=== PATIENT | male | born 1995 ===

== ENCOUNTER 2020-06-16 17:02 | Emergency (ER) | payer MEDICAID, SELFPAY ==
[2020-06-16 17:07] VITALS: BP 117/66; PULSE 78; RESP 18; TEMP 37.1; O2SAT 100; BMI 23.1
--- NOTE | 2020-06-16 18:58 | PC.NURSE ---
PATIENT [facility] DUE TO NEEDING TO GO TO WORK. THIS HIDE [employer] WORKER COUNSELLED PATIENT TO FOLLOW UP WITH PCP AND RETURN IF ANY ISSUES ARISE.
--- NOTE | 2020-06-16 20:22 | PC.NURSE ---
Called at 1999 for room placement, again at 2014, no answer
== END 2020-06-16 20:20 | disposition left against medical advice (07) ==
PROVIDERS: Emergency Provider Emergency Medicine
DX: Z04.1 Encounter for examination and observation following transport accident (principal)
CPT/HCPCS: 99281; 99282

== ENCOUNTER 2020-06-16 23:56 | Emergency (ER) | payer OTHER, MEDICAID, SELFPAY ==
[2020-06-17 00:14] VITALS: BP 105/60; PULSE 76; RESP 14; TEMP 36.6; O2SAT 98
[2020-06-17 00:23] VITALS: PULSE 76; RESP 14; TEMP 36.6; O2SAT 98; BMI 23.5
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
== END 2020-06-17 01:07 | disposition home or self-care (01) ==
LOC: HO.ED 06-17 00:56
PROVIDERS: Emergency Provider Emergency Medicine
DX: S39.012A Strain of muscle, fascia and tendon of lower back, initial encounter (principal); M54.2 Cervicalgia; M25.511 Pain in right shoulder; V43.52XA Car driver injured in collision with other type car in traffic accident, initial encounter; Y93.9 Activity, unspecified; Y92.410 Unspecified street and highway as the place of occurrence of the external cause; F17.200 Nicotine dependence, unspecified, uncomplicated; Z71.6 Tobacco abuse counseling
CPT/HCPCS: 99283; 99284

== ENCOUNTER 2020-06-17 16:48 | Outpatient (REF) | payer OTHER, MEDICAID, SELFPAY ==
--- NOTE | 2020-06-17 16:45 | MR_ITS ---
EXAMINATION: MR SHOULDER WITHOUT CONTRAST, RIGHT CLINICAL INFORMATION: Shoulder pain. COMPARISON: None. TECHNIQUE: MRI of the shoulder without contrast was performed on a high-field scanner. FINDINGS: ROTATOR CUFF: Mild subscapularis tendinosis. No focal tear. Supraspinatus, infraspinatus, teres minor are intact. No muscle atrophy or fatty infiltration. BICEPS: Intact. CORACOACROMIAL ARCH: The undersurface of the acromion is curved with no subacromial spur. [id number]-lj-[id number] AC joint arthritis. LABRUM/CAPSULE: No focal labral tear is seen. Inferior capsule is intact. GLENOHUMERAL JOINT/MARROW: Subcortical cysts in the greater tuberosity. There is a subchondral cyst/edema in the posterolateral humeral head, with minimal cortical irregularity. This could be related to sequela of impingement, prior impaction injury. No significant joint effusion. IMPRESSION: 1. Mild subscapularis tendinosis. No evidence of rotator cuff tear. 2. Rhpf-xn-zbowrreq AC joint arthritis. 3. Subcortical findings in the posterolateral humeral head, could be related to sequela of impingement, prior impaction injury.
== END 2020-06-17 16:49 | disposition home or self-care (01) ==
LOC: HO.MRI 16:48
PROVIDERS: Visit Provider Emergency Medicine
DX: M25.511 Pain in right shoulder (principal)
CPT/HCPCS: 73221

== ENCOUNTER → 2020-10-11 08:02 | Outpatient (BNVA) | payer MEDICAID, SELFPAY | PROVIDERS: Visit Provider Orthopaedic Surgery | DX: M25.311 Other instability, right shoulder (principal); M25.312 Other instability, left shoulder | CPT/HCPCS: 99202 ==

== ENCOUNTER 2021-11-06 23:56 | Emergency (ER) | payer MEDICAID, SELFPAY ==
--- NOTE | ~2021-11-06 | XR_ITS ---
EXAMINATION: XR WRIST, RIGHT CLINICAL INFORMATION: Fall COMPARISON: None TECHNIQUE: PA, lateral, and oblique views of the right wrist. FINDINGS: The bones and soft tissues are unremarkable. No fracture. Alignment is anatomic with normal joint spaces. No erosions or abnormal soft tissue calcifications. A bone island is present in the scaphoid. A small cyst is present in the ulnar styloid. XR/XR wrist RT 2V IMPRESSION: No evidence of an acute osseous injury.
[2021-11-07] VITALS: BP 118/68; PULSE 68; RESP 18; TEMP 36.6; O2SAT 99; BMI 24.3
--- NOTE | 2021-11-07 01:21 | ED_ITS ---
HPI - Fall General Chief Complaint: Fall Stated Complaint: Fall Time Seen by Provider: 11/07/21 01:29 Source: patient Mode of arrival: ambulatory Limitations: no limitations History of Present Illness HPI Narrative: 26-year-old male presents with injury sustained from a fall after slipping on some ice. complaint: fall Onset (ago): hour(s) (Within the hour of arrival) Fall from: standing Fall witnessed: no Place fall occurred: other (Outside) Loss of consciousness: none Prolonged down time: no Symptoms prior to fall: none Context: tripped/slipped (Slipped on ice) Location of injury: neck and back Location of injury - extremities: right: hand Severity: mild Severity scale (1-10): 4 Quality: aching Associated symptoms (after fall): denies Related Data Home Medications Medication Instructions Recorded Confirmed terbinafine HCl 1 % topical spray 1 spray TOPICAL BEDTIME 09/15/20 (Lamisil (Aerosol)) Previous Rx's Medication Instructions Recorded cyclobenzaprine 10 mg tablet 10 mg PO TID PRN #14 tab 11/07/21 Allergies Allergy/AdvReac Type Severity Reaction Status Date / Time No Known Allergies Allergy Verified 11/07/21 00:00 Review of Systems Review of Systems: Constitutional: No Fever, No Chills ENT/Mouth: No Ear Pain, No Hoarseness, No sore throat Eyes: No Eye Pain, No Swelling, No Redness, No Foreign Body Cardiovascular: No Chest Pain, No SOB Respiratory: No Cough, No Dyspnea Gastrointestinal: No Nausea, No Vomiting, No Diarrhea, No abdominal Pain Genitourinary: No Dysuria, No Hematuria Musculoskeletal: positive right wrist, back and neck pain, No Myalgias, No Joint Swelling Skin: No Skin lacerations, No rash Neuro: No Weakness, No Numbness, No Paresthesias, No Loss of Consciousness, No Dizziness, No Headache Psych: No Anxiety/Panic, No Depression Heme/Lymph: no easy bruising, no Lymphadenopathy Endocrine: No Polyuria, No Polydipsia Yes all other systems are reviewed and are negative [facility] Past Medical History Attestation statement: The following information was validated with the patient. 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 Oriented X3. No acute distress. Eyes: Pupils equal, round and reactive to light. ENT: Pharynx normal. Neck: Normal inspection. Neck supple. No vertebral tenderness or step-offs noted to cervical spine. No axial loading tenderness. Full range of motion against resistance. CVS: Normal heart rate and rhythm. Pulses normal. Respiratory: No respiratory distress. Breath sounds normal. Abdomen: Soft and nontender. Skin: Skin warm and dry. Normal skin color. Normal skin turgor. Extremities: Moves all extremities against resistance. Strength 5/5 to all extremities. No snuffbox tenderness. Able to pronate supinate extend and flex wrist without difficulty. Neuro: No motor deficit. No sensory deficit. Cranial nerves 2-12 intact. Course Course Course Narrative: 26-year-old male presents with injury sustained from a slip and fall on the ice while walking out of [place]. Patient has full range of motion, gait is well balanced well coordinated. X-rays to the right wrist are negative for acute findings requiring emergent intervention. Injuries are most likely muscular skeletal, acute whiplash injury. Plan of care is to discharge home and have patient follow-up with primary care physician if symptoms persist. Will give prescription for cyclobenzaprine. Thank you for choosing this emergency department for evaluation. Please follow-up with primary care physician as needed. Return to the emergency department for any new, concerning, or worsening symptoms. MDM - Fall Differential Diagnosis Differential diagnosis: Likely dislocation and fracture Medical Records Attestation: I reviewed the patient's medical records. Imaging Data Wrist x-ray: Attestation: I personally reviewed and interpreted this imaging study as follows: Radiologist's impression: EXAMINATION: XR WRIST, RIGHT CLINICAL INFORMATION: Fall? COMPARISON: None? TECHNIQUE: PA, lateral, and oblique views of the right wrist. FINDINGS: The bones and soft tissues are unremarkable. No fracture. Alignment is anatomic with normal joint spaces. No erosions or abnormal soft tissue calcifications. A bone island is present in the scaphoid. A small cyst is present in the ulnar styloid. XR/XR wrist RT 2V IMPRESSION: No evidence of an acute osseous injury. Discharge Plan Discharge Clinical Impression: Musculoskeletal strain, Muscle strain of right wrist, Fall due to ice or snow Patient Disposition: Home, Self-Care Instructions: Cervical Strain (DC), Wrist Injury (ED), Musculoskeletal Pain (ED) Additional Instructions: You were evaluated for injury sustained from a slip and fall on the ice. X-rays negative for acute findings requiring emergent intervention. Your injuries are consistent with a whiplash or an acute muscle strain. Please use cyclobenzaprine as needed for muscle spasms. Cyclobenzaprine as a muscle relaxer, this medication can delay reaction time, increased risk for falls, and cause drowsiness. Do not drive or operate machinery while taking this medication. You may consider following up with primary care physician as you may need physical therapy if symptoms persist. Thank you for choosing this emergency department for evaluation. Please follow-up with primary care physician as needed. Return to the emergency department for any new, concerning, or worsening symptoms. Prescriptions: New cyclobenzaprine 10 mg tablet 10 mg PO TID PRN (Reason: muscle spasm) Qty: 14 0RF
[2021-11-07] MEDS: Cyclobenzaprine HCl 10 MG TABLET PO (01:58)
[2021-11-07 02:00] VITALS: BP 91/49; PULSE 75; RESP 16; O2SAT 98
--- NOTE | 2021-11-07 02:02 | PC.NURSE ---
pt a&o, no sob or chest pain. pt neuro intact, able to complete full sentence and is appropriate. Pt able to ambulate with a steady gait. Medicated per Nov. Reviewed discharge instructions. pt verbalized understanding.
== END 2021-11-07 02:04 | disposition home or self-care (01) ==
PROVIDERS: Emergency Provider Emergency Medicine; PCP Nurse Practitioner Primary Care
DX: S16.1XXA Strain of muscle, fascia and tendon at neck level, initial encounter (principal); S66.911A Strain of unspecified muscle, fascia and tendon at wrist and hand level, right hand, initial encounter; W00.0XXA Fall on same level due to ice and snow, initial encounter; Y93.01 Activity, walking, marching and hiking; Y92.481 Parking lot as the place of occurrence of the external cause; Y99.8 Other external cause status
CPT/HCPCS: 73100; 90471; 99283; 99284

== ENCOUNTER 2021-11-21 21:09 | Emergency (ER) | payer MEDICAID, SELFPAY ==
[2021-11-21 21:15] VITALS: BP 129/88; PULSE 88; RESP 16; TEMP 36.9; O2SAT 98; BMI 24.7
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
== END 2021-11-21 22:56 | disposition home or self-care (01) ==
PROVIDERS: Emergency Provider Emergency Medicine; PCP Nurse Practitioner Primary Care
DX: S01.111A Laceration without foreign body of right eyelid and periocular area, initial encounter (principal); W50.1XXA Accidental kick by another person, initial encounter; Y93.9 Activity, unspecified; Y92.9 Unspecified place or not applicable; Y99.9 Unspecified external cause status
CPT/HCPCS: 12013; 99283; 99284

== ENCOUNTER 2021-12-06 18:01 | Emergency (ER) | payer MEDICAID, SELFPAY ==
[2021-12-06 18:59] VITALS: BP 106/71; PULSE 63; RESP 19; TEMP 36.6; O2SAT 98; BMI 24.6
== END 2021-12-06 20:07 | disposition left against medical advice (07) ==
PROVIDERS: Emergency Provider Emergency Medicine; PCP Nurse Practitioner Primary Care
DX: Z48.02 Encounter for removal of sutures (principal)
CPT/HCPCS: 99281; 99282

== ENCOUNTER 2021-12-06 20:36 | Emergency (ER) | payer MEDICAID, SELFPAY ==
[2021-12-06 20:46] VITALS: BP 106/71; PULSE 63; RESP 12; TEMP 36.9; O2SAT 99; BMI 24.6
--- NOTE | 2021-12-06 20:46 | ED.GENADULT ---
HPI - General Adult General Chief complaint: General Medical Stated complaint: Suture removal Time Seen by Provider: 12/06/21 20:46 Source: patient Mode of arrival: ambulatory Limitations: no limitations History of Present Illness HPI narrative: Patient is a 26 year old male presenting to the emergency department today for suture removal. Patient states that he was injured in a sparring match a couple weeks ago and he had to get stitches placed in his right eyebrow. Patient denies any dizziness, lightheadedness, abdominal pain, nausea, vomiting, fever, chills, blurry vision, double vision, loss of vision, chest pain, difficulty breathing, shortness of breath, back pain, night sweats, pain with urination, increased urinary frequency, increased urinary urgency, blood in his urine or stool, syncope or a near syncopal episode, recent trauma or falls, bowel incontinence, bladder incontinence, bowel retention, bladder retention, or any other complaints at this time. Patient states that there has not been any drainage, discharge, warmth, or redness to the sutured area. Location: face Treatments prior to arrival: none Related Data Home Medications Medication Instructions Recorded Confirmed terbinafine HCl 1 % topical spray 1 spray TOPICAL BEDTIME 09/15/20 (Lamisil (Aerosol)) Previous Rx's Medication Instructions Recorded cyclobenzaprine 10 mg tablet 10 mg PO TID PRN #14 tab 11/07/21 cephalexin 500 mg capsule 500 mg PO Q6H 7 Days #28 cap 11/21/21 Allergies Allergy/AdvReac Type Severity Reaction Status Date / Time No Known Allergies Allergy Verified 11/07/21 00:00 Review of Systems Constitutional: Constitutional: Reports no additional constitutional complaints, Denies chills, Denies fever(s) and Denies night sweats Eyes: Eyes: Reports no additional eye complaints, Denies blurry vision, Denies change in vision, Denies diplopia, Denies eye discharge, Denies loss of vision and Denies eye pain ENT: Denies dizziness Cardiovascular: Cardiovascular: Reports no additional cardiovascular complaints, Denies chest pain, Denies lightheadedness, Denies Loss of Consciousness and Denies dyspnea Respiratory: Respiratory: Reports no additional respiratory complaints and Denies dyspnea Gastrointestinal: Gastrointestinal: Reports no additional gastrointestinal complaints, Denies abdominal pain, Denies melena, Denies hematochezia, Denies change in bowel habits and Denies change in stool character Genitourinary: Genitourinary: Reports no additional male genitourinary complaints, Denies hematuria, Denies oliguria, Denies difficulty urinating, Denies dysuria, Denies urinary frequency, Denies urinary hesitancy, Denies urinary incontinence and Denies urinary urgency Musculoskeletal: Musculoskeletal: Reports no additional musculoskeletal complaints, Denies numbness and Denies tingling Integumentary/Breasts: Comments: 3cm laceration to the right eye brow that is well approximated and healed with 5 4-[address] Neurologic: Denies dizziness, Denies loss of vision, Denies numbness and Denies tingling Psychiatric: Psychiatric: Reports no additional psychiatric complaints Endocrine: Endocrine: Reports no additional endocrine complaints Hematologic/Lymphatic: Hematologic/Lymphatic: Reports no additional hematologic/lymphatic complaints Allergic/Immunologic: Allergic/Immunologic: Reports no additional allergic/immunologic complaints PMFSH Past Medical History Attestation statement: The following information was validated with the patient. Source: old records reviewed Medical History Patient denies significant medical history Family History Family History Other Patient denies medical problems Social History Social History Alcohol intake: current Alcohol intake frequency: holidays/special occasions only Patient Tobacco Use Status: Never used Tobacco Advance Directives: No Advance Directives Information Provided: No Current occupational status: employed Current occupation: [employer]- Right Handed Physical Exam ED Vital Signs: Vital Signs - 24 hr 12/06/21 20:46 Temperature 98.4 F Pulse Rate 63 Respiratory Rate 12 Blood Pressure 106/71 Pulse Oximetry 99 BMI result Body Mass Index 24.6 Const General: cooperative, no acute distress, alert and awake Nutritional Appearance: well nourished Orientation/consciousness: patient oriented x3 Limitations: no limitations HENMT Head: Yes normal to inspection and Yes atraumatic Ears: hearing grossly normal bilaterally and external ears normal General nose exam: Normal external nose present, no nasal discharge noted and no epistaxis Face and sinus: Yes normal facial exam, No abrasion and No laceration Mouth: Normal oral and palatal mucosa present, no drooling and no muffled voice Eyes General: appearance normal, both eyes and all related structures Periorbital: periorbital findings normal Eyelids: Yes eyelids normal Conjunctivae: conjunctivae normal Pupils: Equal, round and reactive pupils present EOM: EOMs intact bilaterally Neck Neck: Yes normal visual inspection, Yes full ROM and Yes no lymphadenopathy Chest Chest palpation & inspection: normal inspection of the chest Resp Effort & Inspection: normal respiratory effort and able to speak in complete sentences Auscultation: clear to auscultation bilaterally Cardio Rate: regular rate Rhythm: regular rhythm GI Inspection: Yes normal to inspection Skin Other: 3cm laceration to the right eyebrow that is well approximated and healing appropriately with 5 4-0 prolene sutures Neuro General: patient oriented x3 and moves all extremities Cranial nerves: Yes Equal, round and reactive pupils present Cognition (Neuro): normal cognition Motor exam (neuro): 5/5 motor strength present throughout Sensory Exam: Normal double simultaneous stimulation for sensation Coordination: [id number] test normal Extrem General: Yes normal to inspection, Yes full ROM and Yes capillary refill normal Psych Appearance: grossly normal Mental Status: mental status grossly normal Affect: normal affect Attitude: cooperative Thought process: Normal thought process present Thought content: Normal thought content present Insight: Good insight present (Psych) Procedures Procedure Narrative Procedure Narrative: 5 4-0 prolene sutures removed from the right eyebrow, without incident. Medical Decision Making MDM Narrative Medical decision making narrative: Patient is a 26 year old male presenting to the emergency department today for a suture removal. Patient's physical exam showed a 3cm laceration to the right eyebrow that was well approximated and healed with 5 4-[address] I explained my physical exam findings to the patient. I answered all questions asked by the patient. Patient's sutures were removed, without incident. I stressed the importance of the patient taking his medication as prescribed. I stressed the importance of the patient following up with his primary care provider. I stressed the importance of the patient returning to the emergency department immediately if his symptoms were to worsen or if he were to develop any dizziness, shortness of breath, difficulty breathing, chest pain, blurry vision, loss of vision, nausea, vomiting, abdominal pain, fever, chills, back pain, or any other complaints. Patient verbalized agreement and understanding with this treatment plan and discharge. Differential Diagnosis Differential Diagnosis: suture removal Medical Records Medical records reviewed: Yes I reviewed the patient's medical records. Discharge Plan Discharge Clinical Impression: Visit for suture removal Patient Disposition: Home, Self-Care Instructions: Stitches Removal (ED) Additional Instructions: Follow up with your primary care provider. Return to the emergency department immediately if your symptoms worsen or if you develop any dizziness, shortness of breath, difficulty breathing, chest pain, blurry vision, loss of vision, nausea, vomiting, abdominal pain, fever, chills, back pain, or any other complaints. Prescriptions: No Action cyclobenzaprine 10 mg tablet 10 mg PO TID PRN (Reason: muscle spasm) Qty: 14 0RF cephalexin 500 mg capsule 500 mg PO Q6H 7 Days Qty: 28 0RF Referrals: Physician,Unknown J [Primary Care Provider] - 2 days (Follow up with your PCP. ) Interventions: ED Discharge Assessment Last Done: 12/06/21 21:25 Discharge Date/Time: 12/06/21 21:26 Print Language: Armenian
== END 2021-12-06 21:26 | disposition home or self-care (01) ==
PROVIDERS: Emergency Provider Internal Medicine
DX: Z48.02 Encounter for removal of sutures (principal); S01.111D Laceration without foreign body of right eyelid and periocular area, subsequent encounter; W45.8XXD Other foreign body or object entering through skin, subsequent encounter
CPT/HCPCS: 99281; 99283

== ENCOUNTER 2023-02-25 21:17 | Emergency (ER) | payer MEDICAID, SELFPAY ==
--- NOTE | ~2023-02-25 | CT_ITS ---
EXAMINATION: CT mastoid CLINICAL INFORMATION: Reason for Exam r/o mastoiditis R side COMPARISON: None. TECHNIQUE: Noncontrast CT targeted to the right temporal bone was performed. Multiplanar reformations were generated and reviewed This CT examination was performed using dose optimization techniques as appropriate, variously including the following: * Automated exposure control * Adjustment of mA and/or kV according to patient size (this includes techniques or standardized protocols for targeted exams where dose is matched to indication/reason for exam; i.e. extremities or head) Use of iterative reconstruction technique DLP: 324.89 mGy-cm FINDINGS: There is diffuse soft tissue thickening of the right external auditory canal which may reflect otitis externa. There is thickening of the right tympanic membrane which appears intact. Partial opacification of the superior mastoid air cells. There is mild to moderate opacification of the middle ear cavity including involvement of the sinus tympani and facial nerve recess and predominantly surrounding the ossicles. The ossicles are intact without erosive changes. The scutum and tegmen tympani are intact. Normal morphology of the inner ear structures. Normal mineralization of the otic capsule. The superior aqueduct is normal in size. Normal appearance of the facial nerve canal. The internal auditory canal is normal in size. The periauricular and visualized cervical soft tissues are unremarkable. The visualized intracranial compartment appears normal. There is mucosal thickening involving the visualized sphenoid, ethmoid, and right maxillary sinus. CT/CT mastoid IMPRESSION: 1. Mild to moderate opacification of the right middle ear cavity, thickening of the tympanic membrane, and partial opacification of the superior mastoid air cells without evidence of osseous erosion. Findings may reflect otomastoiditis 2. Diffuse soft tissue thickening of the right external auditory canal which may reflect otitis externa
[2023-02-25 21:39] VITALS: BP 128/64; PULSE 64; RESP 16; TEMP 37; O2SAT 98; BMI 25.8
--- NOTE | 2023-02-26 00:11 | PC.NURSE ---
pt is in the room with his hands to his ears, 10/10 pain, pt states he puts drops in his ears and he is ok for a day but after he uses a qtip he has pain. chronic as a child.
[2023-02-26 00:21] VITALS: BP 131/78; PULSE 66; RESP 18; O2SAT 100
--- NOTE | 2023-02-26 00:40 | ED.EAR ---
HPI - Ear Problem General Chief complaint: Ear Problems Stated complaint: Infection in both ears?pain in right Time Seen by Provider: 02/26/23 00:05 Source: patient Mode of arrival: ambulatory Limitations: no limitations History of Present Illness HPI Narrative: Patient comes emergency room complaining of right-sided ear pain. Patient states that about 2 days ago, his ear started itching, he has been scratching it with Q-tips. Now, patient has severe pain with discharge. Patient states his whole ear hurts and the back of his ear and side of the neck on the right side helps as well. Denies fever chills. Related Data Home Medications Medication Instructions Recorded Confirmed terbinafine HCl 1 % topical spray 1 spray topical BEDTIME 09/15/20 (Lamisil (Aerosol)) Previous Rx's Medication Instructions Recorded cyclobenzaprine 10 mg tablet 10 mg PO TID PRN muscle spasm #14 11/07/21 tabs cephalexin 500 mg capsule 500 mg PO Q6H 7 days #28 caps 11/21/21 amoxicillin 500 mg-potassium 1 tab PO BID #20 tabs 02/26/23 clavulanate 125 mg tablet (Augmentin) ketorolac 10 mg tablet 10 mg PO TID PRN pain #10 tabs 02/26/23 [id number] 3.3 1 appl otic (ear) right Q4H #10 mL 02/26/23 mg-3 mg-10 mg-0.5 mg/mL ear drops,susp (Cortisporin-TC) Allergies Allergy/AdvReac Type Severity Reaction Status Date / Time No Known Allergies Allergy Verified 11/07/21 00:00 Review of Systems Review of Systems: Constitutional : No Weight loss, No Fever, No Chills, No Night Sweats, No Fatigue, No Malaise ENT/Mouth : No Hearing loss, complaining of right-sided ear pain, itching, discharge. No Nasal Congestion, No Sinus Pain, No Hoarseness, No sore throat, No Rhinorrhea, No Swallowing Difficulty Eyes: No Eye Pain, No Swelling, No Redness, No Foreign Body, No Discharge, No Vision Changes Cardiovascular : No Chest Pain, No SOB, No Dyspnea on Exertion, No Orthopnea, No Edema, No Palpitations Respiratory : No Cough, No Sputum, No Wheezing, No Smoke Exposure, No Dyspnea Gastrointestinal : No Nausea, No Vomiting, No Diarrhea, No Constipation, No abdominal Pain, No Hematochezia, No Melena Genitourinary : no irregular bleeding, No Dysuria, No Urinary Frequency, No Hematuria, No Urinary Incontinence, No Urgency, No Flank Pain, No Urinary Flow Changes, No Hesitancy Musculoskeletal : No joint pain, No Myalgias, No Joint Swelling Skin : No Skin Lesions, No rash Neuro : No Weakness, No Numbness, No Paresthesias, No Loss of Consciousness, No Dizziness, No Headache Psych : No Anxiety/Panic, No Depression, No SI/HI/AH/VH, No Social Issues, Heme/Lymph: No Bruising, No Bleeding,No Lymphadenopathy Endocrine : No Polyuria, No Polydipsia, No Temperature Intolerance [facility] Past Medical History Medical History Patient denies significant medical history Family History Family History Other Patient denies medical problems Social History Social History Alcohol intake: current Alcohol intake frequency: holidays/special occasions only Patient Tobacco Use Status: Never used Tobacco Advance Directives: No Advance Directives Information Provided: Yes Current occupational status: employed Current occupation: [employer]- Right Handed Physical Exam Vital Signs: Vital Signs: Last Vital Signs Temp 98.6 F 02/25/23 21:39 Pulse 66 02/26/23 00:21 Resp 18 02/26/23 00:21 BP 131/78 02/26/23 00:21 Pulse Ox 100 02/26/23 00:21 O2 Del Method Room Air 02/25/23 21:39 BMI result Body Mass Index 25.8 Const: Other: Appearance: Alert. Oriented X3. No acute distress. Eyes: Pupils equal, round and reactive to light. ENT: Pharynx normal. Left ear within normal limits, right ear has significant swelling, unable to see the tympanic membrane due to the amount of discharge and swelling of the ear canal. Patient has pain around the right ear, approximately 1 in in every direction, nonspecific to the mastoid bone. Neck: Normal inspection. Neck supple. No lymph nodes noted. No crepitus CVS: Normal heart rate and rhythm. Pulses normal. Normal S1 and S2 Respiratory: No respiratory distress. Breath sounds normal. No Wheezing. No rales Abdomen: Soft and nontender. No rigidity. No distention. Skin: Skin warm and dry. Normal skin color. Normal skin turgor. Extremities: No lower extremity edema. No Lacerations. No Rash Neuro: Oriented X 3. No motor deficit. No sensory deficit. Moving all extremities. No slurred speech. CN 2 through 12 grossly intact Psych: calm, cooperative, normal affect Course Course Course Narrative: -CT scan of the mastoid bone has been ordered. Results pending -patient was given 1 dose of IM Toradol and Augmentin. Medications Administered Discontinued Medications Generic Name Dose Route Start Last Admin Trade Name Freq PRN Reason Stop Dose Admin Amoxicillin/Clavulanate Potassium 875 mg 02/26/23 00:39 02/26/23 01:11 Amoxicillin/Potassium Clav 875 Mg Tablet PO 02/26/23 00:40 875 mg ONCE ONE Administration Ketorolac Tromethamine 60 mg 02/26/23 00:39 02/26/23 01:12 Ketorolac Tromethamine 60 Mg/2 Ml Vial IM 02/26/23 00:40 60 mg ONCE ONE Administration Medical Decision Making Medical Decision Making MDM Narrative: -from physical exam, patient likely has both otitis media and externa. Patient denies having been swimming lately. -CT scan is not indicative of mastoiditis Radiology Impression Discussion of test interpretation with radiology: I have reviewed the radiologist's reading. Radiologist Impression: FINDINGS: There is diffuse soft tissue thickening of the right external auditory canal which may reflect otitis externa. There is thickening of the right tympanic membrane which appears intact. Partial opacification of the superior mastoid air cells. There is mild to moderate opacification of the middle ear cavity including involvement of the sinus tympani and facial nerve recess and predominantly surrounding the ossicles. The ossicles are intact without erosive changes. The scutum and tegmen tympani are intact. Normal morphology of the inner ear structures. Normal mineralization of the otic capsule. The superior aqueduct is normal in size. Normal appearance of the facial nerve canal. The internal auditory canal is normal in size. The periauricular and visualized cervical soft tissues are unremarkable. The visualized intracranial compartment appears normal. There is mucosal thickening involving the visualized sphenoid, ethmoid, and right maxillary sinus. ? CT/CT mastoid IMPRESSION: ? 1.? Mild to moderate opacification of the right middle ear cavity, thickening of the tympanic membrane, and partial opacification of the superior mastoid air cells without evidence of osseous erosion. Findings may reflect otomastoiditis ? 2.? Diffuse soft tissue thickening of the right external auditory canal which may reflect otitis externa Discharge Plan Discharge Clinical Impression: Otitis externa, Otitis media Patient Disposition: Home, Self-Care Instructions: Ear Infection (ED) Additional Instructions: Please follow-up with your primary care physician tomorrow. If you have any worsening or new symptoms, please return to the emergency room or call 911 Prescriptions: New amoxicillin-pot clavulanate [Augmentin] 500-125 mg tablet 1 tab PO BID Qty: 20 0RF Cortisporin-TC 3.3-3-10-0.5 mg/mL drops,suspension 1 appl otic (ear) right Q4H Qty: 10 0RF Rx Instructions: apply to (cotton) wick; replace wick every 24 hours ketorolac 10 mg tablet 10 mg PO TID PRN (Reason: pain) Qty: 10 0RF Rx Instructions: Do not take this medication with Alive, ibuprofen, naproxen, only Tylenol if needed No Action cyclobenzaprine 10 mg tablet 10 mg PO TID PRN (Reason: muscle spasm) Qty: 14 0RF cephalexin 500 mg capsule 500 mg PO Q6H 7 Days Qty: 28 0RF
[2023-02-26] MEDS: Amoxicillin/Potassium Clav 875 MG TABLET PO (01:11)
[2023-02-26] MEDS: Ketorolac Tromethamine 60 MG/2 ML VIAL IM (01:12)
--- NOTE | 2023-02-26 01:13 | PC.NURSE ---
pt medicated for ear pain. pt has no s/s of hearing loss.
--- NOTE | 2023-02-26 02:20 | PC.NURSE ---
reviewed discharge instructions with pt, pt verbalized understanding, no sign of distress at this charge.
== END 2023-02-26 02:21 | disposition home or self-care (01) ==
PROVIDERS: Emergency Provider Emergency Medicine; PCP Nurse Practitioner Primary Care
DX: H60.93 Unspecified otitis externa, bilateral (principal); H66.93 Otitis media, unspecified, bilateral; Z79.899 Other long term (current) drug therapy
CPT/HCPCS: 70481; 96372; 99284; J1885

== ENCOUNTER 2023-05-24 12:17 | Outpatient (REF) | payer MEDICAID, SELFPAY ==
[2023-05-25 04:00] LABS: HIV AB/AG Nonreactive (Nonreactive); HIV Num 1 0.06 S/CO (0.00-0.99)
[2023-05-25 04:02] LABS: ~HepC Num1 0.19 S/CO (0.00-0.79); ~Hepatitis C Antibody Nonreactive (Nonreactive)
[2023-05-25 05:34] LABS: CT PCR NOT DETECTED (Not Detect.); NG PCR NOT DETECTED (Not Detect.)
[2023-05-27 10:43] LABS: RPR Rapid Plasma Reagin NON-REACTIVE (NON-REACTIVE)
== END 2023-05-24 12:18 | disposition home or self-care (01) ==
LOC: HO.HHCL 12:17
PROVIDERS: Visit Provider Family Medicine
DX: Z11.4 Encounter for screening for human immunodeficiency virus [HIV] (principal); Z11.3 Encounter for screening for infections with a predominantly sexual mode of transmission; Z20.2 Contact with and (suspected) exposure to infections with a predominantly sexual mode of transmission
CPT/HCPCS: 0353U; 36415; 86592; 86803; 87389

== ENCOUNTER 2023-08-26 | Emergency (ER) | payer MEDICAID, SELFPAY ==
--- NOTE | ~2023-08-26 | US_ITS ---
EXAMINATION: US SCROTUM CLINICAL INFORMATION: Right testicular pain. Rule out torsion.. COMPARISON: None available. TECHNIQUE: A sonogram of the scrotum was performed assessing alonzo-scale appearance and color Doppler flow. Spectral Doppler analysis of the arterial and venous flow were performed in the testes bilaterally. FINDINGS: RIGHT: Right testicle measures 4.8 x 2.2 x 3.3 cm, volume 18 mL. No focal testicular parenchymal lesions are visualized. There are a few scattered microcalcifications, up to 5 within the [id number]. Spectral Doppler analysis of the arterial and venous flow is normal in the right testis. Right epididymal head is normal in size. No right hydrocele or varicocele is seen. Right epididymal Doppler flow is increased. LEFT: Left testicle measures 4.5 x 2.5 x 3.2 cm, volume 18 mL. No focal testicular parenchymal lesions are visualized. Spectral Doppler analysis of the arterial and venous flow is normal in the left testis. Left epididymal head is normal in size. No left hydrocele or varicocele is seen. There is a 3 mm cyst in the epididymal head. Left epididymal Doppler flow is normal. US/US scrotum IMPRESSION: * Findings compatible with right epididymitis. * No evidence of testicular torsion. * Limited right testicular microlithiasis. No intratesticular mass or other worrisome findings. In the absence of any other risk factors for testicular cancer (e.g., personal history of testicular cancer, a father or brother with testicular cancer, history of cryptorchidism or maldescent, testicular atrophy, or other risk factors), no further imaging or biochemical follow-up is necessary. However, if the patient has risk factors for testicular cancer, referral to a urologist for evaluation and determination of an optimal follow-up strategy is recommended. Reference: anastasiia Moon. al. AJR: 206February 2016.
--- NOTE | ~2023-08-26 | US_ITS ---
EXAMINATION: US SCROTUM CLINICAL INFORMATION: Right testicular pain. Rule out torsion.. COMPARISON: None available. TECHNIQUE: A sonogram of the scrotum was performed assessing alonzo-scale appearance and color Doppler flow. Spectral Doppler analysis of the arterial and venous flow were performed in the testes bilaterally. FINDINGS: RIGHT: Right testicle measures 4.8 x 2.2 x 3.3 cm, volume 18 mL. No focal testicular parenchymal lesions are visualized. There are a few scattered microcalcifications, up to 5 within the [id number]. Spectral Doppler analysis of the arterial and venous flow is normal in the right testis. Right epididymal head is normal in size. No right hydrocele or varicocele is seen. Right epididymal Doppler flow is increased. LEFT: Left testicle measures 4.5 x 2.5 x 3.2 cm, volume 18 mL. No focal testicular parenchymal lesions are visualized. Spectral Doppler analysis of the arterial and venous flow is normal in the left testis. Left epididymal head is normal in size. No left hydrocele or varicocele is seen. There is a 3 mm cyst in the epididymal head. Left epididymal Doppler flow is normal. US/US scrotum doppler IMPRESSION: * Findings compatible with right epididymitis. * No evidence of testicular torsion. * Limited right testicular microlithiasis. No intratesticular mass or other worrisome findings. In the absence of any other risk factors for testicular cancer (e.g., personal history of testicular cancer, a father or brother with testicular cancer, history of cryptorchidism or maldescent, testicular atrophy, or other risk factors), no further imaging or biochemical follow-up is necessary. However, if the patient has risk factors for testicular cancer, referral to a urologist for evaluation and determination of an optimal follow-up strategy is recommended. Reference: anastasiia Moon. al. AJR: 206February 2016.
[2023-08-26 00:24] VITALS: BP 101/41; PULSE 72; RESP 20; TEMP 37.1; O2SAT 96; BMI 24.3
[2023-08-26 02:40] LABS: MANUAL DIFF FLAG NO
[2023-08-26 02:41] LABS: Basophils Absolute Auto 0.1 X10*3/uL (0.0-0.2); Basophils Percent Auto 0.6 % (0-2); Eosinophils Absolute Auto 0.4 X10*3/uL (0.0-0.4); Eosinophils Percent Auto 4.7 % (0-4); Hematocrit 40.8 % (42.0-52.0); Hemoglobin 13.8 g/dl (14.0-18.0); Imm Gran Abs Auto 0.02 X10*3/uL (0.00-0.03); Imm Gran Pct Auto 0.2 % (0.0-0.4); Lymphocytes Absolute Auto 1.3 X10*3/uL (1.2-4.9); Lymphocytes Percent Auto 16.5 % (20-40); Mean Corpuscular HGB Conc 33.8 g/dl (31.0-36.0); Mean Corpuscular Hemoglobin 30.5 pg (27.0-33.0); Mean Corpuscular Volume 90.3 fL (80.0-98.0); Mean Platelet Volume 9.9 fL (9.4-12.4); Monocytes Absolute Auto 0.5 X10*3/uL (0.1-1.2); Monocytes Percent Auto 6.3 % (2-11); Neutrophils Absolute Auto 5.8 x10*3/uL (2.0-8.3); Neutrophils Percent Auto 71.7 % (45-73); Platelet Count 237 X10*3/uL (160-400); Red Blood Count 4.52 X10*6/uL (4.60-5.80); Red Cell Distribution Width 12.5 % (11.0-16.0); White Blood Count 8.1 X10*3/uL (4.8-10.8)
[2023-08-26 02:42] LABS: Appearance Urine Clear; Color Urine Yellow; Glucose Urine UA Negative (Negative); Leukocyte Esterase Urine Negative (Negative); Nitrite Urine Negative (Negative); Specific Gravity - Urine >= 1.030 (1.005-1.025); Urine Blood Negative (Negative); Urine Ketones Trace mg/dL (Negative); Urine Protein Negative (Neg-Trace)
[2023-08-26 02:44] VITALS: PULSE 65; RESP 16; TEMP 36.4; O2SAT 97
[2023-08-26 02:54] LABS: Alanine Aminotransferase 19 U/L (0-40); Alkaline Phosphatase 115 U/L (39-117); Anion Gap 15 (12-20); Aspartate Amino Transferase 20 U/L (5-37); Bilirubin Total 0.2 mg/dL (0.0-1.0); Blood Urea Nitrogen 16 mg/dL (9-16); Calcium 9.3 mg/dL (8.4-10.2); Carbon Dioxide 25 mmol/L (22-29); Chloride 105 mmol/L (96-108); Creatinine Clr Calc Pharmacy 111.5; Estimated Glomerular Filt Rate > 60; Glucose Random 123 mg/dL (60-115); Potassium 3.9 mmol/L (3.3-5.1); Sodium 141 mmol/L (135-145); Total Protein 6.9 g/dL (6.5-8.0)
[2023-08-26 03:10] LABS: Bacteria Urine None Seen (None Seen); Hyaline Casts Urine 0-2 /LPF (0-2); RBC Urine 0-2 /HPF (0-2); Squamous Epithelial Cell Urine 0-2 /HPF (0-2); WBC Urine 0-5 /HPF (0-5)
--- NOTE | 2023-08-26 03:28 | ED_ITS ---
HPI - Male Genitourinary General Chief complaint: Urogenital-Male Stated complaint: uro-gen male Time Seen by Provider: 08/26/23 03:28 Source: patient Mode of arrival: ambulatory Limitations: no limitations History of Present Illness HPI Narrative: 28-year-old male who presents emergency department for evaluation of right testicular pain. Patient states that yesterday around 19:00 hours he states he sat down and felt a sharp pain in his right testicle. He states that since that time the pain is been constant. Prior to the onset of the pain he was washing and dog but he does not recall straining or having any injury to his testicle. The patient denied frequency, urgency or dysuria. He denied penile discharge. He is sexually active. States he last had intercourse yesterday with a woman and this was his 1st sexual encounter with her. He states that approximately 1 year prior he noted a bump on his testicle that he states he can still feel any does not think that the bump is changed in size. Related Data Home Medications Medication Instructions Recorded Confirmed terbinafine HCl 1 % topical spray 1 spray topical BEDTIME 09/15/20 (Lamisil (Aerosol)) Previous Rx's Medication Instructions Recorded cyclobenzaprine 10 mg tablet 10 mg PO TID PRN muscle spasm #14 11/07/21 tabs cephalexin 500 mg capsule 500 mg PO Q6H 7 days #28 caps 11/21/21 amoxicillin 500 mg-potassium 1 tab PO BID #20 tabs 02/26/23 clavulanate 125 mg tablet (Augmentin) ketorolac 10 mg tablet 10 mg PO TID PRN pain #10 tabs 02/26/23 [id number] 3.3 1 appl otic (ear) right Q4H #10 mL 02/26/23 mg-3 mg-10 mg-0.5 mg/mL ear drops,susp (Cortisporin-TC) doxycycline hyclate 100 mg tablet 100 mg PO Q12H 10 days #20 tabs 08/26/23 metronidazole 500 mg tablet 2,000 mg (4 x 500 mg) PO ONCE #4 08/26/23 tabs Allergies Allergy/AdvReac Type Severity Reaction Status Date / Time No Known Allergies Allergy Verified 07/12/23 15:00 Review of Systems 2 Review of Systems: Yes all other systems are reviewed and are negative PMFSH Past Medical History Medical History Patient denies significant medical history Family History Family History Other Patient denies medical problems Social History Social History (System 07/12/23 @ 15:00 by Doris Bobo) Alcohol intake: current Alcohol intake frequency: holidays/special occasions only Patient Tobacco Use Status: Never used Tobacco Advance Directives: No Advance Directives Information Provided: No Current occupational status: employed Current occupation: [employer]- Right Handed Physical Exam 2 Vital Signs: Vital Signs: Last Vital Signs Temp 97.6 F 08/26/23 02:44 Pulse 65 08/26/23 02:44 Resp 16 08/26/23 02:44 BP 101/41 L 08/26/23 00:24 Pulse Ox 97 08/26/23 02:44 O2 Del Method Room Air 08/26/23 02:44 BMI result Body Mass Index 24.3 Vital signs were normal Exam exam: Uncircumcised male penis, no urethral discharge noted, both testes are descended, they both appear to be symmetric in size, patient does have tenderness palpation of his right testicle and epididymis with no clear mass that I can feel with palpitations. Scrotum appeared normal. Skin appears normal with no lesions. Medications Administered Discontinued Medications Generic Name Dose Route Start Last Admin Trade Name Freq PRN Reason Stop Dose Admin Ibuprofen 400 mg 08/26/23 03:36 08/26/23 04:14 Ibuprofen 400 Mg Tablet PO 08/26/23 03:37 400 mg ONCE ONE Administration Medical Decision Making Medical Decision Making [facility] Narrative: 28-year-old male who presents emergency department for evaluation of right testicular pain which started yesterday at 17:00 hours (approximately 8 hours prior to evaluation). Patient's exam revealed normal-appearing in size, he does have right testes but he does have testicular tenderness and epididymal tenderness. I did order a scrotal ultrasound and scrotal Doppler. 03:41 My interpretation patient's laboratory evaluation is as follows: CBC was normal. CMP revealed elevated glucose 123. Urinalysis was negative 04:31 Patient's duplex ultrasound of the scrotum revealed no torsion good blood flow to both testes, patient may have epididymitis based on the study. Patient does have testicular calcifications. Non clean catch urine was obtained for GC and chlamydia testing Patient was treated with ceftriaxone with lidocaine 500 mg IM and doxycycline 100 mg orally. Patient was prescribed doxycycline 100 mg q.12 hours times 10 days and metronidazole 2 g orally. Patient will need to follow-up with urology to make sure that he is improved after the above treatment and to further evaluate the other ultrasound findings. Patient was given printed and verbal instructions Differential Diagnosis Differential Diagnoses: The differential diagnosis associated with the presentation includes Differential diagnosis includes was not limited due to testicular torsion, testicular trauma, testicular cancer, epididymitis Admission/Observation Consideration of admission/observation: Escalation of care including admission/observation considered Lab Data MDM Lab Attestation statement: I reviewed the patient's lab results. 08/26/23 02:27 08/26/23 02:27 Labs: Lab Results 08/26/23 08/26/23 Range/Units 02:27 02:33 WBC 8.1 (4.8-10.8) X10*3/uL RBC 4.52 L (4.60-5.80) X10*6/uL Hgb 13.8 L (14.0-18.0) g/dl Hct 40.8 L (42.0-52.0) % MCV 90.3 (80.0-98.0) fL MCH 30.5 (27.0-33.0) pg MCHC 33.8 (31.0-36.0) g/dl RDW 12.5 (11.0-16.0) % Plt Count 237 (160-400) X10*3/uL MPV 9.9 (9.4-12.4) fL Immature Gran % (Auto) 0.2 (0.0-0.4) % Neut % (Auto) 71.7 (45-73) % Lymph % (Auto) 16.5 L (20-40) % [place] % (Auto) 6.3 (2-11) % Eos % (Auto) 4.7 H (0-4) % Baso % (Auto) 0.6 (0-2) % Lymph # (Auto) 1.3 (1.2-4.9) X10*3/uL [place] # (Auto) 0.5 (0.1-1.2) X10*3/uL Eos # (Auto) 0.4 (0.0-0.4) X10*3/uL Baso # (Auto) 0.1 (0.0-0.2) X10*3/uL Abs Immat Gran (auto) 0.02 (0.00-0.03) X10*3/uL Absolute Neuts (auto) 5.8 (2.0-8.3) x10*3/uL Absolute Nucleated RBC 0.000 (0.0-0.012) X10*3/uL Nucleated RBC % (auto) 0.0 (0.0-0.2) /100WBC Sodium 141 (135-145) mmol/L Potassium 3.9 (3.3-5.1) mmol/L Chloride 105 (96-108) mmol/L Carbon Dioxide 25 (22-29) mmol/L Anion Gap 15 (12-20) BUN 16 (9-16) mg/dL Creatinine 0.93 (0.5-1.4) mg/dL Estim Creat Clear Calc 111.5 Estimated GFR > 60 Random Glucose 123 H (60-115) mg/dL Calcium 9.3 (8.4-10.2) mg/dL Total Bilirubin 0.2 (0.0-1.0) mg/dL AST 20 (5-37) U/L ALT 19 (0-40) U/L Alkaline Phosphatase 115 (39-117) U/L Total Protein 6.9 (6.5-8.0) g/dL Albumin 4.0 (3.5-5.0) g/dL Urine Color Yellow Urine Appearance Clear Urine pH 6.0 (5.0-9.0) Ur Specific Force >= 1.030 H (1.005-1.025) Urine Protein Negative (Neg-Trace) mg/dL Urine Glucose (UA) Negative (Negative) mg/dL Urine Ketones Trace (Negative) mg/dL Urine Blood Negative (Negative) Urine Nitrite Negative (Negative) Ur Leukocyte Esterase Negative (Negative) Urine RBC 0-2 (0-2) /HPF Urine WBC 0-5 (0-5) /HPF Ur Squamous Epith Cells 0-2 (0-2) /HPF Urine Bacteria None Seen (None Seen) Hyaline Casts 0-2 (0-2) /LPF Radiology Impression Discussion of test interpretation with radiology: I have reviewed the radiologist's reading. Prescription Management I considered prescription management with: Antibiotic Chronic Conditions Patient?s care impacted by: Other (Asthma) Discharge Plan Discharge Clinical Impression: Acute epididymitis Patient Disposition: Home, Self-Care Instructions: Epididymitis (ED) Additional Instructions: Your blood work was normal. The ultrasound revealed no twisting of your testicles. You do have inflammation of the epididymis (the structure just behind your testicle). This is often caused by an infection. This infection is sometimes a sexually transmitted disease such as gonorrhea, chlamydia or Trichomonas. We sent off a urine to test you for these gonorrhea and chlamydia infections. I want you to check the patient portal and if these tests are positive then you need to contact your sexual partner and let her know that she also needs to be treated. Even if these tests are negative, it is very important that you finish taking the antibiotics I am prescribing for you. Take doxycycline 100 mg, 1 pill every 12 hours for 10 days Take Flagyl (metronidazole) 500 mg pills, 4 pills all at once. Take ibuprofen 200 mg pills, 2 pills every 6 hours as needed for pain or fever. Take Tylenol (acetaminophen) 500 mg pills, 2 pills every 6 hours as needed for pain or fever. The ultrasound also showed calcifications in your testicles. It is important that you follow-up with our on-call urologist in 2 weeks to make sure that your infection is better and to further evaluate the ultrasound results. Please return to the emergency department if your symptoms get worse or if you develop any symptoms that are concerning to you. Prescriptions: New metronidazole 500 mg tablet 2,000 mg PO ONCE Qty: 4 0RF doxycycline hyclate 100 mg tablet 100 mg PO Q12H 10 Days Qty: 20 0RF No Action cyclobenzaprine 10 mg tablet 10 mg PO TID PRN (Reason: muscle spasm) Qty: 14 0RF cephalexin 500 mg capsule 500 mg PO Q6H 7 Days Qty: 28 0RF amoxicillin-pot clavulanate [Augmentin] 500-125 mg tablet 1 tab PO BID Qty: 20 0RF Cortisporin-TC 3.3-3-10-0.5 mg/mL drops,suspension 1 appl otic (ear) right Q4H Qty: 10 0RF Rx Instructions: apply to (cotton) wick; replace wick every 24 hours ketorolac 10 mg tablet 10 mg PO TID PRN (Reason: pain) Qty: 10 0RF Rx Instructions: Do not take this medication with Alive, ibuprofen, naproxen, only Tylenol if needed Referrals: Reece Shanks MD [Physician] - 2 weeks (Epididymitis, testicular calcifications)
[2023-08-26] MEDS: Ibuprofen 400 MG TABLET PO (04:14)
[2023-08-26] MEDS: cefTRIAXone sodium 500 MG, Lidocaine HCl 1 % MPF 1 ML IM (04:40)
[2023-08-26] MEDS: Doxycycline Monohydrate 100 MG CAPSULE PO (04:40)
[2023-08-26 05:00] VITALS: PULSE 65; RESP 16; O2SAT 99
[2023-08-26 06:37] LABS: CT PCR NOT DETECTED (Not Detect.); NG PCR NOT DETECTED (Not Detect.)
== END 2023-08-26 05:00 | disposition home or self-care (01) ==
PROVIDERS: Emergency Provider Emergency Medicine Emergency Medical Services; PCP Nurse Practitioner Primary Care
DX: N45.1 Epididymitis (principal); N50.811 Right testicular pain; R10.2 Pelvic and perineal pain; Z79.899 Other long term (current) drug therapy
CPT/HCPCS: 0353U; 36415; 76870; 80053; 81001; 85025; 93975; 96372; 99284; J0696

== ENCOUNTER 2023-10-02 15:31 | Outpatient (REF) | payer MEDICAID, SELFPAY ==
[2023-10-03 08:18] LABS: HBS Num1 31.22 mIU/mL (0-7.99); HIV AB/AG Nonreactive (Nonreactive); HIV Num 1 0.09 S/CO (0.00-0.99); ~HepC Num1 0.13 S/CO (0.00-0.79); ~Hepatitis B Surface Antibody REACTIVE (Nonreactive); ~Hepatitis C Antibody Nonreactive (Nonreactive)
== END 2023-10-02 15:32 | disposition home or self-care (01) ==
LOC: HO.HHCL 15:31
PROVIDERS: Visit Provider Nurse Practitioner Primary Care
DX: Z02.5 Encounter for examination for participation in sport (principal); Z20.2 Contact with and (suspected) exposure to infections with a predominantly sexual mode of transmission
CPT/HCPCS: 36415; 86706; 86803; 87389

== ENCOUNTER 2024-02-17 11:29 | Outpatient (REF) | payer MEDICAID, SELFPAY ==
--- NOTE | ~2024-02-17 | XR_ITS ---
EXAMINATION: XR SHOULDER, LEFT CLINICAL INFORMATION: Left shoulder pain, positive impingement. COMPARISON: None available. TECHNIQUE: AP external rotation, Grashey, scapular Y, and axillary views of the left shoulder. FINDINGS: The bone mineralization is normal. Acromioclavicular and glenohumeral alignment preserved. No abnormal soft tissue calcification identified adjacent to the humeral head. XR/XR shoulder LT min 2V IMPRESSION: No displaced fracture.
== END 2024-02-17 11:30 | disposition home or self-care (01) ==
LOC: HO.XRAY 11:29
PROVIDERS: PCP Family Medicine; Visit Provider Family Medicine
DX: M25.512 Pain in left shoulder (principal)
CPT/HCPCS: 73030

== ENCOUNTER 2024-03-13 16:27 | Outpatient (REF) | payer MEDICAID, SELFPAY ==
[2024-03-14 03:52] LABS: HIV AB/AG Nonreactive (Nonreactive); HIV Num 1 0.05 S/CO (0.00-0.99); ~HepC Num1 0.19 S/CO (0.00-0.79); ~Hepatitis C Antibody Nonreactive (Nonreactive)
[2024-03-16 07:58] LABS: RPR Rapid Plasma Reagin NON-REACTIVE (NON-REACTIVE)
[2024-03-16 20:48] LABS: C. trachomatis RNA TMA NOT DETECTED (NOT DETECTED); N. gonorrhoeae RNA TMA NOT DETECTED (NOT DETECTED)
== END 2024-03-13 16:28 | disposition home or self-care (01) ==
LOC: HO.HHCL 16:27
PROVIDERS: Visit Provider Nurse Practitioner Primary Care
DX: Z11.3 Encounter for screening for infections with a predominantly sexual mode of transmission (principal)
CPT/HCPCS: 36415; 86592; 86803; 87389; 87491; 87591

== ENCOUNTER 2024-09-02 05:00 | Emergency (ER) | payer MEDICAID, SELFPAY ==
[2024-09-02 05:04] VITALS: BP 110/78; BP 119/63; PULSE 107; PULSE 87; RESP 16; TEMP 37; O2SAT 97; O2SAT 98; BMI 24.3
--- NOTE | 2024-09-02 05:20 | ED_ITS ---
HPI - Psych General Chief Complaint: Psychiatric Symptoms Stated Complaint: ANDRIA TORRES Time Seen by Provider: 09/02/24 05:17 Source: patient Mode of arrival: EMS Limitations: no limitations History of Present Illness ED Provider: HPI Narrative: Patient with no significant past medical history feels that he has a depression but has not seen any psychiatrist or therapist comes here because of argument at home with family details not available was making SI statements with a knife wanted to cut himself. No prior history of similar thoughts in the past does not have any therapist or psychiatrist Related Data Home Medications ?Medication ?Instructions ?Recorded ?Confirmed terbinafine HCl 1 % topical spray 1 spray topical BEDTIME 09/15/20 (Lamisil (Aerosol)) Previous Rx's ?Medication ?Instructions ?Recorded cyclobenzaprine 10 mg tablet 10 mg PO TID PRN muscle spasm #14 11/07/21 tabs cephalexin 500 mg capsule 500 mg PO Q6H 7 days #28 caps 11/21/21 amoxicillin 500 mg-potassium 1 tab PO BID #20 tabs 02/26/23 clavulanate 125 mg tablet (Augmentin) ketorolac 10 mg tablet 10 mg PO TID PRN pain #10 tabs 02/26/23 [id number] 3.3 1 appl otic (ear) right Q4H #10 mL 02/26/23 mg-3 mg-10 mg-0.5 mg/mL ear drops,susp (Cortisporin-TC) doxycycline hyclate 100 mg tablet 100 mg PO Q12H 10 days #20 tabs 08/26/23 metronidazole 500 mg tablet 2,000 mg (4 x 500 mg) PO ONCE #4 08/26/23 tabs Allergies Allergy/AdvReac Type Severity Reaction Status Date / Time No Known Allergies Allergy Verified 09/02/24 05:07 Review of Systems 2 Review of Systems: Yes all other systems are reviewed and are negative PMFSH Past Medical History Medical History Patient denies significant medical history Family History Family History Other Patient denies medical problems Social History Social History Alcohol intake: current Alcohol intake frequency: holidays/special occasions only Patient Tobacco Use Status: Never used Tobacco Smoked in Last 30 Days: Yes Use of substances other than those prescribed or required for medical reasons: No Advance Directives: No Do you have a plan to hurt others: No Plan Current occupational status: employed Current occupation: [employer]- Right Handed Physical Exam 2 Vital Signs: Vital Signs: Last Vital Signs Temp 98.6 F 09/02/24 05:04 Pulse 87 09/02/24 05:04 Resp 16 09/02/24 05:04 BP 119/63 09/02/24 05:04 Pulse Ox 97 09/02/24 05:04 O2 Del Method Room Air 09/02/24 05:04 BMI result Body Mass Index 24.3 Appearance: Alert. Oriented X3. No acute distress. Eyes: No pallor or icterus ENT: Pharynx normal. Oral Mucosa moist Neck: Normal inspection. Neck supple. CVS: Normal heart rate and rhythm. Pulses normal. Respiratory: No respiratory distress. Equal air entry bilateral, no wheezing/rales/rhonchi Abdomen: Soft and nontender. Bowel sounds are present, no mass palpable, no CVA tenderness Skin: Skin warm and dry. Normal skin color. Normal skin turgor. Extremities: No lower extremity edema. No calf tenderness psych; feel deep denies any SI at this time no hallucination or delusion Neuro: Oriented X 3. No motor deficit. No sensory deficit.No cerebellar signs , cranial nerves II-XII intact Medical Decision Making Medical Decision Making MDM Narrative: Patient with depression with SI feeling will get care team involved for evaluation Lab Data MDM Lab Attestation statement: I reviewed the patient's lab results. 09/02/24 05:50 09/02/24 05:50 Labs: Lab Results 09/02/24 Range/Units 05:50 WBC 6.0 (4.8-10.8) X10*3/uL RBC 4.33 L (4.60-5.80) X10*6/uL Hgb 13.4 L (14.0-18.0) g/dl Hct 37.7 L (42.0-52.0) % MCV 87.1 (80.0-98.0) fL MCH 30.9 (27.0-33.0) pg MCHC 35.5 (31.0-36.0) g/dl RDW 12.0 (11.0-16.0) % Plt Count 229 (160-400) X10*3/uL MPV 9.7 (9.4-12.4) fL Immature Gran % (Auto) 0.3 (0.0-0.4) % Neut % (Auto) 75.3 H (45-73) % Lymph % (Auto) 16.0 L (20-40) % [place] % (Auto) 5.7 (2-11) % Eos % (Auto) 2.2 (0-4) % Baso % (Auto) 0.5 (0-2) % Lymph # (Auto) 1.0 L (1.2-4.9) X10*3/uL [place] # (Auto) 0.3 (0.1-1.2) X10*3/uL Eos # (Auto) 0.1 (0.0-0.4) X10*3/uL Baso # (Auto) 0.0 (0.0-0.2) X10*3/uL Abs Immat Gran (auto) 0.02 (0.00-0.03) X10*3/uL Absolute Neuts (auto) 4.5 (2.0-8.3) x10*3/uL Absolute Nucleated RBC 0.000 (0.0-0.012) X10*3/uL Nucleated RBC % (auto) 0.0 (0.0-0.2) /100WBC Sodium 143 (135-145) mmol/L Potassium 3.9 (3.3-5.1) mmol/L Chloride 109 H (96-108) mmol/L Carbon Dioxide 26 (22-29) mmol/L Anion Gap 12 (12-20) BUN 12 (9-16) mg/dL Creatinine 0.90 (0.5-1.4) mg/dL Estim Creat Clear Calc 114.2 Estimated GFR > 60 Random Glucose 101 (60-115) mg/dL Calcium 9.1 (8.4-10.2) mg/dL Total Bilirubin 0.3 (0.0-1.0) mg/dL AST 36 (5-37) U/L ALT 23 (0-40) U/L Alkaline Phosphatase 103 (39-117) U/L Total Protein 7.3 (6.5-8.0) g/dL Albumin 4.4 (3.5-5.0) g/dL Salicylates < 5.0 L (15-30) mg/dL Urine Opiates Screen Not Detected (Not Detect) Ur Buprenorphine Scrn Not Detected (Not Detect) ng/mL Ur Oxycodone Screen Not Detected (Not Detect) ng/mL Urine Methadone Screen Not Detected (Not Detect) ng/mL Urine Fentanyl Screen Not Detected (Not Detect) Acetaminophen < 3 (<30) mcg/mL Ur Barbiturates Screen Not Detected (Not Detect) Ur Phencyclidine Scrn Not Detected (Not Detect) Ur Amphetamines Screen Not Detected (Not Detect) U Benzodiazepines Scrn Not Detected (Not Detect) Urine Cocaine Screen Not Detected (Not Detect) U Marijuana (THC) Screen POSITIVE H (Not Detect) Ethyl Alcohol 77 mg/dL Discharge Plan Discharge Clinical Impression: Depression, Suicidal ideation Patient Disposition: Still a Patient Prescriptions: No Action cyclobenzaprine 10 mg tablet 10 mg PO TID PRN (Reason: muscle spasm) Qty: 14 0RF cephalexin 500 mg capsule 500 mg PO Q6H 7 Days Qty: 28 0RF metronidazole 500 mg tablet 2,000 mg PO ONCE Qty: 4 0RF doxycycline hyclate 100 mg tablet 100 mg PO Q12H 10 Days Qty: 20 0RF amoxicillin-pot clavulanate [Augmentin] 500-125 mg tablet 1 tab PO BID Qty: 20 0RF Cortisporin-TC 3.3-3-10-0.5 mg/mL drops,suspension 1 appl otic (ear) right Q4H Qty: 10 0RF Rx Instructions: apply to (cotton) wick; replace wick every 24 hours ketorolac 10 mg tablet 10 mg PO TID PRN (Reason: pain) Qty: 10 0RF Rx Instructions: Do not take this medication with Alive, ibuprofen, naproxen, only Tylenol if needed Interventions: [place]-Suicide Risk Severity Scale Last Done: 09/02/24 05:33 Print Language: Nepali
[2024-09-02 05:58] LABS: MANUAL DIFF FLAG NO
[2024-09-02 06:00] LABS: Basophils Percent Auto 0.5 % (0-2); Eosinophils Absolute Auto 0.1 X10*3/uL (0.0-0.4); Eosinophils Percent Auto 2.2 % (0-4); Hematocrit 37.7 % (42.0-52.0); Hemoglobin 13.4 g/dl (14.0-18.0); Imm Gran Abs Auto 0.02 X10*3/uL (0.00-0.03); Imm Gran Pct Auto 0.3 % (0.0-0.4); Mean Corpuscular HGB Conc 35.5 g/dl (31.0-36.0); Mean Corpuscular Hemoglobin 30.9 pg (27.0-33.0); Mean Corpuscular Volume 87.1 fL (80.0-98.0); Mean Platelet Volume 9.7 fL (9.4-12.4); Monocytes Absolute Auto 0.3 X10*3/uL (0.1-1.2); Monocytes Percent Auto 5.7 % (2-11); Neutrophils Absolute Auto 4.5 x10*3/uL (2.0-8.3); Neutrophils Percent Auto 75.3 % (45-73); Platelet Count 229 X10*3/uL (160-400); Red Blood Count 4.33 X10*6/uL (4.60-5.80)
[2024-09-02 06:10] LABS: Amphetamine Screen Urine Not Detected (Not Detect); Barbiturates, Urine Not Detected (Not Detect); Benzodiazepines Screen Urine Not Detected (Not Detect); Buprenorphine Scr Not Detected (Not Detect); Cannabinoid Screen Urine POSITIVE (Not Detect); Cocaine Screen Urine Not Detected (Not Detect); Fentanyl, urine Not Detected (Not Detect); Methadone Screen, Urine Not Detected (Not Detect); Opiate Screen Urine Not Detected (Not Detect); Oxycodone Screen Urine Not Detected (Not Detect); Phencyclidine Screen Urine Not Detected (Not Detect)
[2024-09-02 06:14] LABS: Alanine Aminotransferase 23 U/L (0-40); Albumin Level 4.4 g/dL (3.5-5.0); Alkaline Phosphatase 103 U/L (39-117); Anion Gap 12 (12-20); Aspartate Amino Transferase 36 U/L (5-37); Bilirubin Total 0.3 mg/dL (0.0-1.0); Blood Urea Nitrogen 12 mg/dL (9-16); Calcium 9.1 mg/dL (8.4-10.2); Carbon Dioxide 26 mmol/L (22-29); Chloride 109 mmol/L (96-108); Creatinine Clr Calc Pharmacy 114.2; Estimated Glomerular Filt Rate > 60; Ethanol 77 mg/dL; Glucose Random 101 mg/dL (60-115); Potassium 3.9 mmol/L (3.3-5.1); Sodium 143 mmol/L (135-145); Total Protein 7.3 g/dL (6.5-8.0)
[2024-09-02 06:24] LABS: Acetaminophen LAB < 3 mcg/mL (<30); Salicylate < 5.0 mg/dL (15-30)
--- NOTE | 2024-09-02 12:51 | PC.NURSE ---
Alert and oriented, calm and cooperative, seen by lucinda. Ate well for lunch
[2024-09-02 12:59] VITALS: BP 128/66; PULSE 83; RESP 19; TEMP 36.8; O2SAT 98
[2024-09-02 14:49] VITALS: BP 128/66; PULSE 83; RESP 18; TEMP 36.8; O2SAT 98
== END 2024-09-02 14:53 | disposition home or self-care (01) ==
PROVIDERS: Emergency Provider Internal Medicine; PCP Nurse Practitioner Primary Care
DX: F33.1 Major depressive disorder, recurrent, moderate (principal); R45.851 Suicidal ideations; Z51.81 Encounter for therapeutic drug level monitoring; Z79.899 Other long term (current) drug therapy
CPT/HCPCS: 36415; 80053; 80143; 80179; 80307; 85025; 99285; S9485

== ENCOUNTER 2024-09-25 10:47 | Outpatient (REF) | payer MEDICAID, SELFPAY ==
[2024-09-25 12:06] LABS: HBS Num1 27.79 mIU/mL (0-7.99); HIV AB/AG Nonreactive (Nonreactive); HIV Num 1 0.05 S/CO (0.00-0.99); ~HepC Num1 0.17 S/CO (0.00-0.79); ~Hepatitis B Surface Antibody REACTIVE (Nonreactive); ~Hepatitis C Antibody Nonreactive (Nonreactive)
[2024-09-26 13:19] LABS: CT PCR NOT DETECTED (Not Detect.); NG PCR NOT DETECTED (Not Detect.)
[2024-09-28 09:58] LABS: RPR Rapid Plasma Reagin NON-REACTIVE (NON-REACTIVE)
== END 2024-09-25 10:48 | disposition home or self-care (01) ==
LOC: HO.HHCL 10:47
PROVIDERS: Visit Provider Nurse Practitioner Primary Care
DX: Z02.5 Encounter for examination for participation in sport (principal); Z11.3 Encounter for screening for infections with a predominantly sexual mode of transmission; Z20.2 Contact with and (suspected) exposure to infections with a predominantly sexual mode of transmission
CPT/HCPCS: 36415; 86592; 86706; 86803; 87389; 87491; 87591

== ENCOUNTER 2024-10-06 19:59 | Emergency (ER) | payer OTHER, SELFPAY ==
[2024-10-06 20:01] VITALS: BP 148/87; PULSE 74; RESP 17; TEMP 36.7; O2SAT 100; BMI 25.2
--- NOTE | 2024-10-06 20:03 | ED_ITS ---
HPI - Male Genitourinary General Chief complaint: Skin/Abscess/Foreign Body Stated complaint: rash/hard to go to bathroom Time Seen by Provider: 10/06/24 21:29 Source: patient Limitations: no limitations History of Present Illness ED Provider: Ninfa Nathan PA-C HPI Narrative: 29-year-old male presents with rectal pain x1 week. Patient states he has ?small cuts?, on both sides of his rectal opening. Patient states he is able to visualize them in the mirror if he uses his phone. When patient has a bowel movement, there is blood on the toilet paper. Patient states having bowel movements is extremely painful. Denies concurrent hemorrhoids. Patient also states he has an itchy rash within bilateral groin that comes and goes; he has been using a prescribed antifungal cream that has resolved the symptoms. Denies dysuria, hematuria, penile discharge or risk for STD. Related Data Previous Rx's ?Medication ?Instructions ?Recorded lidocaine 3 %-hydrocortisone 0.5 % 1 appl [place] BID #1 ea 10/06/24 rectal kit Allergies Allergy/AdvReac Type Severity Reaction Status Date / Time No Known Allergies Allergy Verified 10/06/24 20:05 Review of Systems Review of Systems: Yes all other systems are reviewed and are negative Constitutional: Constitutional: Denies fatigue and Denies fever(s) Gastrointestinal: Gastrointestinal: Denies abdominal pain, Denies constipation, Denies diarrhea, Denies nausea and Denies vomiting Genitourinary: Genitourinary: Denies hematuria, Denies dysuria and Denies penile discharge Endocrine: Endocrine: Denies fatigue PMFSH Past Medical History Attestation statement: The following information was validated with the patient. Medical History Patient denies significant medical history Family History Family History Other Patient denies medical problems Social History Social History Alcohol intake: current Alcohol intake frequency: holidays/special occasions only Patient Tobacco Use Status: Never used Tobacco Advance Directives: No Advance Directives Information Provided: No Do you have a plan to hurt others: No Plan Current occupational status: employed Current occupation: [employer]- Right Handed Physical Exam Vital Signs: Vital Signs: Last Vital Signs Temp 98.1 F 10/06/24 20:01 Pulse 74 10/06/24 20:01 Resp 17 10/06/24 20:01 BP 148/87 H 10/06/24 20:01 Pulse Ox 100 10/06/24 20:01 O2 Del Method Room Air 10/06/24 20:01 BMI result Body Mass Index 25.2 Const: Other: Alert well-appearing Orientation/consciousness: patient oriented x3 Resp: Effort & Inspection: normal respiratory effort Cardio: Other: Normal peripheral perfusion GI: Other: Multiple anal fissures noted around anal opening, no hemorrhoids noted no active bleeding : Other: External genitalia are normal in appearance, there are no lesions, there is no rash within the groin, there was no penile discharge, there was no testicular swelling or erythema Skin: Other: Warm dry no rash Neuro: General: patient oriented x3, no focal motor deficits and CN's II-XI intact bilaterally Psych: Other: Cooperative Course Course Course Narrative: This is an RME: Additional HPI, ROS, PE not included below will be deferred to primary provider. RME assessment and note performed by: Lelo Carrillo PA-C This is a [id number]-male who presents to the ER with a complaint of genitalia and rectal rash/pain. Rash is itchy. Reports pain with defecation. No concerns for STIs. No privacy in triage for examination, will defer further work up/diagnostics until seen by primary provider. Medical Decision Making Medical Decision Making MDM Narrative: 29-year-old male presents with rectal pain x1 week. Patient states he has ?sma ll cuts?, on both sides of his rectal opening. Patient states he is able to visualize them in the mirror if he uses his phone. When patient has a bowel movement, there is blood on the toilet paper. Patient states having bowel movements is extremely painful. Denies concurrent hemorrhoids. Patient also states he has an itchy rash within bilateral groin that comes and goes; he has been using a prescribed antifungal cream that has resolved the symptoms. Denies dysuria, hematuria, penile discharge or risk for STD. No chronic issues History: Per patient I have considered the following differential diagnoses: STD, tinea cruris, perirectal abscess, hemorrhoid, anal fissure, HPV Plan: Patient has anal fissures, his genitourinary exam was completely normal. We will send him with a contact for GI. Sending with topical lidocaine cream and home care instructions. Discharge Plan Discharge Clinical Impression: Anal fissure, unspecified Patient Disposition: Home, Self-Care Instructions: Anal Fissure (ED) Additional Instructions: You were found to have anal fissures. See home care instructions. This condition can predispose you to having other gastrointestinal conditions such as Crohn's disease. You need to follow up with a casework specialist. I am providing you with a contact for follow up, you can call tomorrow to schedule an appointment. Use the topical lidocaine cream for your discomfort. You should start taking an veff-mlv-[id number] stool softener such as Colace, to prevent constipation and to help your bowel movements to be more comfortable. Prescriptions: New lidocaine HCl-hydrocortison ac 3-0.5 % kit 1 appl AK BID Qty: 1 0RF Referrals: Linda Hernández MD [Physician] - (anal fissures) Print Language: Somali
[2024-10-06 22:40] VITALS: BP 116/71; PULSE 73; RESP 18; TEMP 36.8; O2SAT 98
[2024-10-06] MEDS: Lidocaine 4 % Cream KIT 1 APPL TOPICAL (23:09)
[2024-10-06 23:21] VITALS: BP 116/71; PULSE 73; RESP 18; TEMP 36.8; O2SAT 98
== END 2024-10-06 23:22 | disposition home or self-care (01) ==
PROVIDERS: Emergency Provider Emergency Medicine; PCP Nurse Practitioner Primary Care
DX: K60.2 Anal fissure, unspecified (principal); L29.0 Pruritus ani; K62.5 Hemorrhage of anus and rectum
CPT/HCPCS: 99282; 99283

== ENCOUNTER 2024-10-08 21:50 | Emergency (ER) | payer OTHER, SELFPAY ==
[2024-10-08 22:08] VITALS: BP 121/78; BP 128/74; PULSE 107; PULSE 62; RESP 16; TEMP 37.2; O2SAT 95; O2SAT 97; BMI 27.1
--- NOTE | 2024-10-08 22:26 | ED_ITS ---
HPI - Psych General Chief Complaint: Psychiatric Symptoms Stated Complaint: Crisis/etoh/emotional distress Time Seen by Provider: 10/08/24 22:26 Source: patient Mode of arrival: ambulatory Limitations: no limitations History of Present Illness ED Provider: HPI Narrative: Patient with increased anxiety upset with family situation unable to get his car fixed give the money to his cousin patient has been 5 months feels very anxious and upset wants to talk to therapist to get relaxed denies any SI or HI had 4 nips prior to arrival denies any other substance abuse denies any been alcoholic Related Data Previous Rx's ?Medication ?Instructions ?Recorded lidocaine 3 %-hydrocortisone 0.5 % 1 appl [place] BID #1 ea 10/06/24 rectal kit Allergies Allergy/AdvReac Type Severity Reaction Status Date / Time No Known Allergies Allergy Verified 10/08/24 22:19 Review of Systems 2 Review of Systems: Yes all other systems are reviewed and are negative PMFSH Past Medical History Medical History Patient denies significant medical history Family History Family History Other Patient denies medical problems Social History Social History Alcohol intake: current Alcohol intake frequency: holidays/special occasions only Patient Tobacco Use Status: Never used Tobacco Advance Directives: No Advance Directives Information Provided: No Do you have a plan to hurt others: No Plan Current occupational status: employed 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 Oriented X3. No acute distress. etoh+ Eyes: PERRLA, No Nystagmus ENT: Pharynx normal. Oral Mucosa moist Neck: Normal inspection. Neck supple. CVS: Normal heart rate and rhythm. Pulses normal. Respiratory: No respiratory distress. Equal air entry bilateral, no wheezing/rales/rhonchi Abdomen: Soft and nontender. Bowel sounds are present, no mass palpable, no CVA tenderness Skin: Skin warm and dry. Normal skin color. Normal skin turgor. Extremities: No lower extremity edema. No calf tenderness psych: Anxious denies any SI or HI no hallucination delusion Neuro: Oriented X 3. No motor deficit. No sensory deficit.No cerebellar signs , cranial nerves II-XII intact Medications Administered Discontinued Medications Generic Name Dose Route Start Last Admin Trade Name Oscar PRN Reason Stop Dose Admin Lorazepam 2 mg 10/08/24 22:39 10/08/24 23:35 Lorazepam 1 Mg Tablet PO 10/08/24 22:40 2 mg ONCE ONE Administration Medical Decision Making Medical Decision Making [facility] Narrative: Patient' with depression anxiety seen by care team will re-evaluate patient in a.m. for disposition Lab Data [facility] Lab Attestation statement: I reviewed the patient's lab results. 10/08/24 23:51 10/08/24 23:52 Labs: Lab Results 10/08/24 10/08/24 10/08/24 Range/Units 23:51 23:52 23:53 WBC 5.3 (4.8-10.8) X10*3/uL RBC 4.54 L (4.60-5.80) X10*6/uL Hgb 13.9 L (14.0-18.0) g/dl Hct 39.0 L (42.0-52.0) % MCV 85.9 (80.0-98.0) fL MCH 30.6 (27.0-33.0) pg MCHC 35.6 (31.0-36.0) g/dl RDW 11.8 (11.0-16.0) % Plt Count 241 (160-400) X10*3/uL MPV 9.7 (9.4-12.4) fL Immature Gran % (Auto) 0.2 (0.0-0.4) % Neut % (Auto) 63.0 (45-73) % Lymph % (Auto) 27.7 (20-40) % [place] % (Auto) 5.1 (2-11) % Eos % (Auto) 3.2 (0-4) % Baso % (Auto) 0.8 (0-2) % Lymph # (Auto) 1.5 (1.2-4.9) X10*3/uL [place] # (Auto) 0.3 (0.1-1.2) X10*3/uL Eos # (Auto) 0.2 (0.0-0.4) X10*3/uL Baso # (Auto) 0.0 (0.0-0.2) X10*3/uL Abs Immat Gran (auto) 0.01 (0.00-0.03) X10*3/uL Absolute Neuts (auto) 3.3 (2.0-8.3) x10*3/uL Absolute Nucleated RBC 0.000 (0.0-0.012) X10*3/uL Nucleated RBC % (auto) 0.0 (0.0-0.2) /100WBC Sodium 144 (135-145) mmol/L Potassium 3.8 (3.3-5.1) mmol/L Chloride 108 (96-108) mmol/L Carbon Dioxide 25 (22-29) mmol/L Anion Gap 15 (12-20) BUN 13 (9-16) mg/dL Creatinine 0.88 (0.5-1.4) mg/dL Estim Creat Clear Calc 120.9 Estimated GFR > 60 Random Glucose 97 (60-115) mg/dL Calcium 9.2 (8.4-10.2) mg/dL Total Bilirubin 0.2 (0.0-1.0) mg/dL AST 42 H (5-37) U/L ALT 27 (0-40) U/L Alkaline Phosphatase 104 (39-117) U/L Total Protein 7.7 (6.5-8.0) g/dL Albumin 4.5 (3.5-5.0) g/dL Salicylates < 5.0 L (15-30) mg/dL Urine Opiates Screen Not Detected (Not Detect) Ur Buprenorphine Scrn Not Detected (Not Detect) ng/mL Ur Oxycodone Screen Not Detected (Not Detect) ng/mL Urine Methadone Screen Not Detected (Not Detect) ng/mL Urine Fentanyl Screen Not Detected (Not Detect) Acetaminophen < 3 (<30) mcg/mL Ur Barbiturates Screen Not Detected (Not Detect) Ur Phencyclidine Scrn Not Detected (Not Detect) Ur Amphetamines Screen Not Detected (Not Detect) U Benzodiazepines Scrn Not Detected (Not Detect) Urine Cocaine Screen Not Detected (Not Detect) U Marijuana (THC) Screen POSITIVE H (Not Detect) Ethyl Alcohol 160 mg/dL Discharge Plan Discharge Clinical Impression: Depression, Acute anxiety Patient Disposition: Still a Patient Prescriptions: No Action lidocaine HCl-hydrocortison ac 3-0.5 % kit 1 appl MS BID Qty: 1 0RF Interventions: [place]-Suicide Risk Severity Scale Last Done: 10/09/24 03:01 Print Language: Nauruan
--- OUTSIDE RECORDS SUMMARY | 2024-10-08 22:36 | XMS_ITS | Encounter Summary ---
Author Organization [employer] Address [address] [place] [address] Care Team Providers Care Manager Corporate Communications Name Role Phone Janie Benedict Primary Care Provider [phone] Reason for Visit * Reason Onset Date Comments Med Refill 06/19/2024 Encounter Details Date Type Department Care Team ([facility] Contact Info) Description 06/19/2024 Telephone [facility] [address] [place] [address] Janie Benedict ANP [address] [place] [address] Med Refill Social History Tobacco Use Types Packs/Day Years Used Date Smoking Tobacco: Former Cigarettes Passive Smoke Exposure: Past Smokeless Tobacco: Current Comments:weed Alcohol Use Standard Drinks/Week Comments Yes 2 (1 standard drink = 0.6 oz pur e alcohol) Alcohol Answer Date Recorded Frequency of Alcohol Consumption Not on file 01/03/2024 Average Number of Drinks Not on file 024 Frequency of Binge Drinking Not on file 12/09 Score 0 01/03/2024 Depression Answer Date Recorded Patient Health Questionnaire-9 Score 0 03/13/2024 Patient Health Questionnaire-9 Score 0 03/13/2024 Last PHQ-9: Questionnaire Data Not on file 0 03/13/2024 Housing Stability Answer Date Recorded What is your housing situation today? I have wilmer sarmiento 01/03/[address] you li ve. Do you have problems with any of the following? None of the above 01/03/2024 Food Insecurity Answer Date Recorded Within the past 12 months, y ou worried that your food would run out before you got money to buy more: Never True 01/03/2024 Within the past 12 months,th e food you bought just didn't last and you didn't have enough money to get more: Never True Transportation Answer Date Recorded In the past 12 months, has l ack of transportation kept you from medical appts, meetings, work or from getting things needed for daily living? No 01/03/2024 Utilities Answer Date Recorded In the past 12 months, has t he electric, gas, oil or water company threatened to shut off services in your home? No 01/03/2024 Depression Answer Date Recorded Patient Health Questionnaire-2 Score 0 03/13/2024 Internet Access Answer Date Recorded Internet Access Q1 Yes 05/11/2024 Internet Access Q2 Not on file 05/11/2024 Sex and Gender Information Value Date Recorded Sex Assigned at Male 07/09/2022 10:21 AM EDT Legal Sex Male 10:21 AM EDT Gender Identity Male 07/09/2022 10:21 AM EDT Sexual Orientation Straight 07/09/2022 10 :21 AM EDT documented as of this encounter Miscellaneous Notes * Telephone Encounter - Denice Michel RN - 09/11/2024 3:30 PM EST Telephone call to pt to advise that medication sent to pharmacy on file but to schedule follow up appt for any symptoms. Pt already has appt on 09/17 scheduled. Pt reporting drainage x3 months in rightear and intermittent pain with loud noises, 2 months of ringing in the right ear with intermittent dried blood when ear is really dry , also concerns for left ear and for repeat fungal infection. Ptalso stating that left ear is also bothering him, wants ENT referral, no active referral on file. Advised pt to come to walk in clinic sooner than 09/17 appt to be seen, pt stated he is on house arrest and needs pre-booked appts. Pre-booked pt for Walk in Clinic 09/12/24 at 11am, pt asking for text confirmation to show to his chief technical officer. Advised him that confirmation will be sent and also to check MyChart, pt stated this should be sufficient. Advised pt to call clinic before appt with any questions or concerns, pt in agreement with plan. -- Janie Benedict, PHYSICIAN OFFICE ASSISTANT Happy to re-send the clotrimazole cream but if having ear sx (the solution I think was for his ears) recommend he be seen. Thanks. * Telephone Encounter - Serena Al LPN - 06/19/2024 4:05 PM EDT Please review request. * Telephone Encounter - Garth Brothers - 06/19/2024 4:03 PM EDT TC from pt requesting medication refill. Medications needing refill: clotrimazole (Lotrimin) 1 % cream clotrimazole (Lotrimin) 1 % external solution To be sent to: [facility]/pharmacy #[id number] documented in this encounter Plan of Treatment Upcoming Encounters Date Type Department Care Team (Late st Contact Info) Description 11/19/2024 11:15 AM EDT Office Visit [facility] [address] [place] [address] Janie Benedict ANP [address] [place] [address] documented as of this encounter Visit Diagnoses Diagnosis Tinea cruris- Primary Dermatophytosis of groin and perianal area documented in this encounter Additional Health Concerns Assessment Noted Time PHQ-9 Depression Total Score: 0 03/13/20 24 3:16 PM EDT documented as of this encounter Care Teams Manager Corporate Communications Relationship Specialty Start Date End Date Janie Benedict ANP [address] [place] [address] PCP - General Family Medicine 08/08/20 documented as of this encounter
--- OUTSIDE RECORDS SUMMARY | 2024-10-08 22:36 | XMS_ITS | Encounter Summary ---
Author Organization [employer] Address [address] [place] [address] Care Team Providers Care Sanitation Manager Name Role Phone Janie Benedcit Primary Care Provider [phone] Reason for Visit * Reason Onset Date Comments Appointment Request 09/15/2024 Encounter Details Date Type Department Care Team ([facility] Contact Info) Description 09/15/2024 Telephone [facility] MEDICINE [address] [place] [address] Janie Benedict ANP [address] [place] [address] Appointment Request Social History Tobacco Use Types Packs/Day Years [...] encounter Miscellaneous Notes * Telephone Encounter - Clare Esposito - 09/15/2024 11:47 AM EST Tc from pt requesting schedule appt for DX: Ear Infection. [phone] documented in this encounter Plan of Treatment Upcoming Encounters Date Type Department Care Team (Late st Contact Info) Description 11/19/2024 11:15 AM EDT Office Visit [facility] MEDICINE [address] [place] [address] Janie Benedict ANP [address] [place] [address] documented as of this encounter Visit Diagnoses Not on filedocumented in this encounter Additional Health Concerns Assessment Noted Time PHQ-9 Depression Total Score: 0 03/13/20 24 3:16 PM EDT documented as of this encounter Care Teams Sanitation Manager Relationship Specialty Start Date End Date Janie Benedict ANP [address] [place] [address] PCP - General Family Medicine 08/08/20 documented as of this encounter
--- OUTSIDE RECORDS SUMMARY | 2024-10-08 22:36 | XMS_ITS | Encounter Summary ---
Author Organization [employer] [facility] Address [address] [place] [address] [address] [place] [address] Care Team Providers Care Surface Plate Finisher Name Role Phone Janie Benedict Primary Care Provider [phone] Reason for Visit * Reason Comments Med Refill Encounter Details Date Type Department Care Team (Late st Contact Info) Description 10/17/2022 Refill [facility] [address] [place], [place] [phone] Higinio Byrne MD [address] [place] [address] Social History Tobacco Use Types Packs/Day Years Used Date Smoking Tobacco: Never Assessed Sex and Gender Information Value Date Recorded Sex Assigned at Male 07/09/2022 10:21 AM EDT Legal Sex Male 10:21 AM EDT Gender Identity Male 07/09/2022 10:21 AM EDT Sexual Orientation Straight 07/09/2022 10 :21 AM EDT documented as of this encounter Plan of Treatment Upcoming Encounters Date Type Department Care Team (Late st Contact Info) Description 11/19/2024 11:15 AM EDT Office Visit [facility] MEDICINE [address] [place] [address] Janie Benedict ANP [address] [place] [address] documented as of this encounter Visit Diagnoses Not on filedocumented in this encounter Care Teams Surface Plate Finisher Relationship Specialty Start Date End Date Janie Benedict ANP [address] [place] [id number] PCP - General Family Medicine 08/08/20 documented as of this encounter
--- OUTSIDE RECORDS SUMMARY | 2024-10-08 22:36 | XMS_ITS | Encounter Summary ---
Author Organization [facility] Address [address] [place] [address] [address], [place] [address] Care Team Providers Care Product Applications Scientist Name Role Phone Janie Benedict Primary Care Provider [phone] Reason for Visit * Reason Comments Med Refill Encounter Details Date Type Department Care Team (Late st Contact Info) Description 10/17/2022 Refill [facility] MEDICINE [address] [place] [phone] Anastacio Mancera MD [address] [place] [id number] Social History Tobacco Use Types Packs/Day Years [...] Description 11/19/2024 11:15 AM EDT Office Visit [facility] MEDICINE [address] [place] [address] Janie Benedict ANP [address] [place] [address] documented as of this encounter Visit Diagnoses Not on filedocumented in this encounter Care Teams Product Applications Scientist Relationship Specialty Start Date End Date Janie Benedict ANP [address] [place] [id number] PCP - General Family Medicine 08/08/20 documented as of this encounter
--- OUTSIDE RECORDS SUMMARY | 2024-10-08 22:36 | XMS_ITS | Encounter Summary ---
Author Organization [employer] Address [address] [place] [address] Care Team Providers Care Parts Lister Name Role Phone Janie Benedict Primary Care Provider [phone] Reason for Visit * Reason Onset Date Comments Appointment Request 06/19/2024 Encounter Details Date Type Department Care Team ([facility] Contact Info) Description 06/19/2024 Telephone [facility] MEDICINE [address] [place] [address] Janie Benedict ANP [address] [place] [address] Appointment Request Social History Tobacco Use Types [...] encounter Miscellaneous Notes * Telephone Encounter - Angel Marcial - 06/19/2024 3:46 PM EDT Tc from patient calling to reschedule appt from 05/19 however there is no availability documented in this encounter Plan of Treatment Upcoming Encounters Date Type Department Care Team (Late st Contact Info) Description 11/19/2024 11:15 AM EDT Office Visit [facility] [address] [place] [address] Janie Benedict ANP [address] [place] [address] documented as of this encounter Visit Diagnoses Not on filedocumented in this encounter Additional Health Concerns Assessment Noted Time PHQ-9 Depression Total Score: 0 03/13/20 24 3:16 PM EDT documented as of this encounter Care Teams Parts Lister Relationship Specialty Start Date End Date Janie Benedict ANP [address] [place] [address] PCP - General Family Medicine 08/08/20 documented as of this encounter
--- OUTSIDE RECORDS SUMMARY | 2024-10-08 22:36 | XMS_ITS | Clinical Summary ---
Author Organization [employer] Address [address] [place] [address] 7t [place] [address] Care Team Providers Care Ms Access Database Developer Name Role Phone Janie Benedict Primary Care Provider [phone] Allergies No known active allergies Medications Fluocinolone Acetonide Scalp 0.01 % oilIndications :Seborrheic dermatitis APPLY A THIN LAYER TOPICALLY TO DAMP SCALP, MASSAGE WELL + COVER FOR 4HRS/OVERNIGHT THEN WASH OFF 118.28 mL 10/12/19 23 Active hydrocortisone 2.5 % creamIndicatio ns:Rash APLIQUE CAPA PREM EL ROSA ELENA AFECTADA DOS VECES AL D A 30 g 10/19/19 23 Active Neomycin-Polym yxin-HC 1 % solution Administer 3 drops into affected ear(s) 4 times daily. 10 mL 02/17/20 24 Active naproxen (Naprosyn) 500 MG tablet Take 1 tablet (500 mg) by mouth if needed in the morning and at bedtime for mild pain. Take with food 50 tablet 02/17/20 24 Active clotrimazole (Lotrimin) 1 % creamIndicatio ns:Tinea cruris APPLY BY TOPICAL ROUTE 2 TIMES EVERY DAY FOR 4 WEEKS TO THE AFFECTED AND SURROUNDING AREAS OF SKIN 60 g 1 09/11/19 25 Active clotrimazole (Lotrimin) 1 % external solutionIndica tions:Chronic otitis externa of right ear, unspecified type 4 drops into affected ear 4-5 times daily for 21 days 15 mL 09/25/19 25 Active fluconazole (Diflucan) 150 MG tabletIndicati ons:Chronic otitis externa of right ear, unspecified type,Tinea cruris Take 1 pill once per week for 4 weeks 4 tablet 09/25/19 25 Active clotrimazole (Lotrimin) 1 % creamIndicatio ns:Tinea cruris APPLY BY TOPICAL ROUTE 2 TIMES EVERY DAY FOR 4 WEEKS TO THE AFFECTED AND SURROUNDING AREAS OF SKIN 60 g 1 03/13/20 24 025 Discontinued(R eorder (will not trigger notification to Pharmacy)) clotrimazole (Lotrimin) 1 % external solutionIndica tions:Chronic otitis externa of right ear, unspecified type 4 drops into affected ear 4-5 times daily for 21 days 15 mL 03/13/20 24 025 Discontinued(R eorder (will not trigger notification to Pharmacy)) Active Problems Problem Noted Date Diagnosed Date Acute pain of left shoulder 02/17/2024 Assessment & Plan (02/17/2024 11:10 AM EDT): -ordered XR -encouraged stretching and exercise as tolerated -advised to take OTC analgesics PRN -referred to orthopedist for further evaluation Chronic otitis externa of right ear 02/17/2024 Assessment & Plan (02/17/2024 1:13 PM EDT): -will treat with Augmentin and cortisporin otic - patient is already scheduled for a physical exam with PCP in 2 weeks and was advised to have his ears checked again, possibly irrigation. Tinea cruris 01/03/2024 Assessment & Plan (01/03/2024 2:36 PM EDT): Maintain area dry and clean Fluconazole 150mfg weekly for 4 weeks Clotrimazole/betamethasone apply BID for 2 weeks Attention deficit 11/14/2022 Assessment & Plan (11/14/2022 2:01 PM EST): Sent referral to [facility] for ADHD RO F/up with PCP Testicular lump 11/14/2022 Assessment & Plan (11/14/2022 2:01 PM EST): Discussed observing size and characteristics of lump and reporting any changes. We also discussed that he is in the primary age group for males that develop testicular cancer and that we need to be diligent. US + referral to urology = RO testicular cancer F/up: with PCP or RTC PRN if symptoms worsen Insomnia 11/14/2022 Assessment & Plan (11/14/2022 2:00 PM EST): We spoke about trying to hydrate more in the morning and afternoon. And not in the evenings. CBC = RO anemia F/up with PCP Acne 10/09/2011 Encounters Date Type Department Care Team Description 09/25/2024 9:30 AM EST Office Visit [facility] [address] [place] [phone] Janie Benedict ANP Chronic otitis externa of right ear, unspecified type (Primary Dx); Tinea cruris; Routine screening for STI (sexually transmitted infection) 09/25/2024 Travel 09/21/2024 Travel 09/17/2024 Orders Only [facility] [address] [place] [phone] Jaine Benedict ANP History of recurrent ear infection (Primary Dx); Chronic otitis externa of right ear, unspecified type 09/15/2024 Telephone [facility] [address] [place] [phone] Janie Benedict ANP Appointment Request 09/04/2024 Telephone [facility] [address] [place] [address] Janie Benedict ANP Appointment Request 08/18/2024 Travel from Last 3 Months Immunizations Name Administration Dates Next Due DTaP 03/17/2008, 1,06/24/1997,09/16,1996,1996 HPV, Quadrivalent 08/14/2011,05/15/2011,07/26/20 10 Hep A, Adult 01/16/2023 Hep A, ped/adol, 2 dose 07/26/2010,03/27/2008 Hep B, Adolescent or Pediatric 1996,1995 Hep B, adult 1996 IPV 04/04/2001, 7,1996,03/17 Influenza injectable quadriv alent IIV4 with preservative 07/15/2017 Influenza injectable quadriv alent preservative free 09/05/2015,08/23/2014 Influenza, IIV3, injectable 05/15/2011, 0 Influenza, Split (incl. irving fied surface antigen) 06/24/2013,07/01/2012 MMR 04/04/2001,01/28/1997 Meningococcal MCV4P ACYW-135 06/06/2015 Meningococcal MPSV4 03/17/2008 TD (adult), 2 Lf tetanus tox oid, preservative free, adsorbed 09/23/2018 Tdap 06/24/2013 Varicella 05/18/2008,01/28/1997 Social History Tobacco Use Types Packs/Day Years Used Date Smoking Tobacco: Never Passive Smoke Exposure: Past Smokeless Tobacco: Never Tobacco Cessation:Counseling Given: No Comments:weed Alcohol Use Standard Drinks/Week Comments Yes [...] is your housing situation today? I have wilmeredi sarmiento 01/03/[address] you [...] Orientation Straight 07/09/2022 10 :21 AM EDT Last Filed Vital Signs Vital Sign Reading Time Taken Comments Blood Pressure 129/87 09/25/2024 9:56 AM EST Pulse 64 09/25/2024 9:56 AM EST Temperature 36.8 ??C (98.2 ??F) 09/25/2024 9:56 AM ES T Respiratory Rate 25 03/13/2024 4:13 PM EDT Oxygen Saturation 98% 09/25/2024 9:56 AM EST Inhaled Oxygen Concentration - - Weight 71.1 kg (156 lb 12.8 oz) 09/25/2024 9:56 AM EST Height 170.2 cm (5' 7 ) 03/13/2024 4:13 PM EDT Body Mass Index 24.56 03/13/2024 4:13 PM EDT Plan of Treatment Upcoming Encounters Date Type Department Care Team (Late st Contact Info) Description 11/19/2024 11:15 AM EDT Office Visit [facility] [address] [place] [address] Janie Benedict ANP [address] [place] [address] Health Maintenance Due Date Last Done Comments Family Planning (PISQ) 01/13/2011 Alcohol/Substance Use Screening 01/02/2025 01/03/2024 SDOH Screening 01/02/2025 01/03/2024 Influenza Vaccine (#1) 2025 7, 09/05/2015, 08/23/2014, Additional history exists Postponed from 05/10/2024 (Patient Refused) Depression Screening 03/13/2025 03/13/2024, 03/13/20 24 COVID-19 Vaccine ( season) 2025 Postponed from 05/10/2024 (Patient Refused) Tobacco Screening 09/25/2025 09/25/2024 DTaP/Tdap/Td Vaccines (9 - Td or Tdap) 09/23/2028 09/23/2018, 06/24/2013, 03/17/2008, Additional history exists Zoster Vaccines (1 of 2) 01/13/2046 RSV Patients and Patients Aged 60 years or older (1 - 1-dose 75+ series) 01/13/2071 Hepatitis B Vaccines Completed 1996, 1996, 1996 IPV Vaccines Completed 04/04/2001, 04/1997, 1996, Additional history exists HPV Vaccines Completed 08/14/2011, 02/2011, 07/26/2010 Meningococcal Vaccine Aged Out 06/06/2015, 008 No longer eligible based on patient's age to complete this topic Hepatitis A Vaccines Completed 01/16/2023, 07/26/2010, 03/27/2008 HIV Screening Completed 09/25/2024, 01/2024, 10/02/2023, Additional history exists Hepatitis C Screening Completed 09/25/2024 , 03/13/2024, 10/02/2023, Additional history exists HIB Vaccines Aged Out No longer eligi ble based on patient's age to complete this topic Pneumococcal Vaccine: Pediatrics (0 to 5 Years) and At-Risk Patients (6 to 49) Years) Aged Out No longer eligible based on patient's age to complete this topic RSV under 20 months Aged Out No longe r eligible based on patient's age to complete this topic Rotavirus Vaccines Aged Out No longer eligible based on patient's age to complete this topic Procedures Procedure Name Priority Date/Time Associated Diagnosis Comments HEPATITIS B SURFACE ANTIBODY, QUALITATIVE Routine 09/25/2024 10:49 AM EST History of recurrent ear infection HIV 1/2 ANTIGEN/ANTIBODY, FOURTH GENERATION W/RFL Routine 09/25/2024 10:49 AM EST Routine screening for STI (sexually transmitted infection) HEPATITIS C AB W/REFL TO HCV RNA, QN, PCR Routine 09/25/2024 10:49 AM EST Routine screening for STI (sexually transmitted infection) RPR (MONITOR) W/REFL TITER Routine 09/25/2024 10:49 AM EST Routine screening for STI (sexually transmitted infection) CHLAMYDIA/N. GONORRHOEAE RNA, TMA, UROGENITAL Routine 09/25/2024 10:38 AM EST Routine screening for STI (sexually transmitted infection) from Last 3 Months Results * Hepatitis C Antibody with Reflex to HCV, RNA, Quantitative, Real-Time PCR (09/25/2024 10:49 AM EST) Hepatitis C Antibody Nonreactive Nonreactive [facility] Comment:Antibodies to HCV no t detected; does not exclude early acuteHCV infection. Blood Venous blood specimen / Unknown 09/25/2024 10:49 AM EST 09/25/2024 11:20 AM EST us Janie DOMINGUEZ LAB BLOOD ORDERABLES Final Resul t Performing Organization Address [facility] Co de Phone Number [facility] [address] [place] [address] [phone] * RPR (Monitor) with Reflex to??Titer (09/25/2024 10:49 AM EST) RPR (Monitor) w/Refl Titer NON-REACTI VE NON-REACT MIRANDA [facility] Comment:THIS TEST WAS PERFOR MED AT:[employer] [address] [phone] MORENO MD Rapid Plasma Reagin Ab Titer TNP [facility] Blood Venous blood specimen / Unknown 09/25/2024 10:49 AM EST 09/25/2024 11:20 AM EST us Janie Benedict ANP LAB BLOOD ORDERABLES Final Resul t Performing Organization Address [facility] Co de Phone Number [facility] [address] [place] [phone] * HIV-1/2 Antigen and Antibodies, Fourth Generation, with Reflexes (09/25/2024 10:49 AM EST) [facility] HIV AB/AG Nonreactive Nonreactive [facility] Comment:HIV-1 p24 Ag and/or HIV-1/HIV-2 Ab not detected.A test result that is nonreactive does not exclude thepossibility of exposure to or infection with HIV-1 and/orHIV-2. Nonreactive results in this assay for individualswith prior exposure to HIV-1 and/or HIV-2 may be due toantigen and antibody levels that are below the limit ofdetection of this assay.[employer] HIV Ag/Ab Combo assay result andsupplemental assay results should be interpreted inconjunction with the patient's clinical presentation,history and other laboratory results. If the results areinconsistent with clinical evidence, additional testing issuggested to confirm the result. Blood Venous blood specimen / Unknown 09/25/2024 10:49 AM EST 09/25/2024 11:20 AM EST Janie Benedict [facility] LAB BLOOD ORDERABLES Final Resul t Performing Organization Address City/[facility]/ZIP Co de Phone Number [facility] [address] [place] [phone] * Hepatitis B Surface Antibody, Qualitative (09/25/2024 10:49 AM EST) [facility] ~Hepatitis B Surface Antibody REACTIVE Nonreactive [facility] Comment:REACTIVE: > 11.99 mI U/mL 09/25/2024 10:4 9 AM EST 09/25/2024 11:20 AM EST Janie Benedict [facility] LAB BLOOD ORDERABLES Final Resul t Performing Organization Address City/[facility] Co de Phone Number [facility] [address] [place] [phone] * Chlamydia/N. Gonorrhoeae RNA, TMA, Urine (09/25/2024 10:38 AM EST) CT PCR NOT DETECTED Not Detect. [facility] Comment:A not detected test result does not exclude the possibilityof infection because test results can be affected byimproper specimen collection, concurrent antibiotic therapy,or the number of organisms in the specimen which may bebelow the sensitivity of the test. As with many diagnostictests, results from the Xpert CT/NG assay should beinterpreted in conjunction with other laboratory andclinical data available to the clinician.Xpert CT/NG performance has not been evaluated in patientsless than 14 years of age. The assay should not be used forthe evaluationof suspected sexual abuse or for other medico-legalindications. Additional testing is recommended in anycircumstance when false positive or false negative resultscould lead to adverse medical, social or psychologicalconsequences. NG PCR NOT DETECTED Not Detect. [facility] Comment:A not detected test result does not exclude the possibilityof infection because test results can be affected byimproper specimen collection, concurrent antibiotic therapy,or the number of organisms in the specimen which may bebelow the sensitivity of the test. As with many diagnostictests, results from the Xpert CT/NG assay should beinterpreted in conjunction with other laboratory andclinical data available to the clinician.Xpert CT/NG performance has not been evaluated in patientsless than 14 years of age. The assay should not be used forthe evaluationof suspected sexual abuse or for other medico-legalindications. Additional testing is recommended in anycircumstance when false positive or false negative resultscould lead to adverse medical, social or psychologicalconsequences. Urine (Urine, Random) 09/25/2024 10:38 AM EST 09/25/2024 4:46 PM EST Narrative [facility] - 09/26/2024 1:20 PM EST Urine [facility] LAB MICROBIOLOGY - GENERAL ORDER ALTHEA Final Result [facility] [address] [place] [phone] from Last 3 Months Insurance HSN PARTIAL Care Teams Ms Access Database Developer Relationship Specialty Start Date End Date Janie Benedict ANP [address] [place] [address] PCP - General Family Medicine 08/08/20
--- OUTSIDE RECORDS SUMMARY | 2024-10-08 22:36 | XMS_ITS | Encounter Summary ---
Author Organization [employer] Address [address] [place] [address] Care Team Providers Care Home Extension Agent Name Role Phone Janie Benedict Primary Care Provider [phone] Reason for Visit * Reason Onset Date Comments Nurse Triage 02/14/2024 Encounter Details Date Type Department Care Team ([facility] st Contact Info) Description 02/14/2024 Telephone [facility] [address] [place] [address] Janie Benedict ANP [address] [place] [address] Nurse Triage Social History Tobacco Use Types Packs/Day Years Used Date Smoking Tobacco: Every Day Passive Smoke Exposure: Past Smokeless Tobacco: Current Comments:weed Alcohol Use Standard Drinks/Week Comments Yes 2 (1 standard drink = 0.6 oz pur e alcohol) Alcohol Answer Date Recorded Frequency of Alcohol Consumption Not on file 01/03/2024 Average Number of Drinks Not on file 024 Frequency of Binge Drinking Not on file 12/09 Score 0 01/03/2024 Depression Answer Date Recorded Patient Health Questionnaire-9 Score 3 11/14/2022 Housing Stability Answer Date Recorded What is [...] Date Recorded Patient Health Questionnaire-2 Score 0 11/14/2022 Sex and Gender Information Value Date Recorded Sex Assigned at Male 07/09/2022 10:21 AM EDT Legal Sex Male 10:21 AM EDT Gender Identity Male 07/09/2022 10:21 AM EDT Sexual Orientation Straight 07/09/2022 10 :21 AM EDT documented as of this encounter Miscellaneous Notes * Telephone Encounter - Mindy Vaughn RN - 02/14/2024 3:31 PM EDT Call returned to Juan Nava to triage below. Reports having left shoulder pain x 2 months. No knowninjury but pt did have a wrestling match prior to pain starting. No swelling, redness or rash. Per pt pain with ROM. Having some weakness on hand. No CP. Pt advised of disposition, agrees to sick appt on Saturday for shoulder pain. During call pt also mentions having left ear pain and discharge x 1 week. Per pt no blood in discharge. Pt states has had similar ear infections in past. Advised that needs to be seen today, agrees to seek [facility] for exam as they have late hours today. Reviewed home care advise, ER precautions and reasons to call back. Multiple (2) protocols were used on this call. Disposition for Call: Go to Urgent Care Now Protocol Used: Earache (Adult) Protocol-Based Disposition: See in Office or Video Visit Today Override (Final) Disposition: Go to Urgent Care Now Override Reason: End of day call Positive Triage Question: * White, yellow, or green discharge * All higher-acuity triage questions were negative Care Advice Discussed: * Pain Medicines * Apply Cold to the Area for Pain * Reasons To Call Back - You become worse Protocol Used: Shoulder Pain (Adult) Protocol-Based Disposition: See in Office or Video Visit within 3 Days Video visit offer not recorded Positive Triage Question: * Moderate pain (e.g., interferes with normal activities) and present > 3 days * All higher-acuity triage questions were negative Care Advice Discussed: * Use Heat After 48 Hours for Pain * Heat to Area (Shower Option) * Rest vs. Movement * Pain Medicines * Reasons To Call Back - You become worse * Telephone Encounter - Angel Marcial - 02/14/2024 3:28 PM EDT Symptoms: Shoulder Pain - Not From Injury, Ear Ringing or Buzzing (No Pain) Outcome: Schedule an urgent appointment (within 1 hour) or talk to a nurse or provider soon Reason: Can't use the shoulder normally The caller accepted this outcome documented in this encounter Plan of Treatment Upcoming Encounters Date Type Department Care Team (Late st Contact Info) Description 11/19/2024 11:15 AM EDT Office Visit [facility] [address] [place] [address] Janie Benedict ANP [address] [place] [address] documented as of this encounter Visit Diagnoses Not on filedocumented in this encounter Additional Health Concerns Assessment Noted Time PHQ-9 Depression Total Score: 3 11/15/19 23 10:08 AM EST documented as of this encounter Care Teams Home Extension Agent Relationship Specialty Start Date End Date Janie Benedict ANP [address] [place] [address] PCP - General Family Medicine 08/08/20 documented as of this encounter
--- OUTSIDE RECORDS SUMMARY | 2024-10-08 22:36 | XMS_ITS | Encounter Summary ---
Author Organization [employer] Address [address] [place] [address] Care Team Providers Care Manager Core Name Role Phone Janie Benedict Primary Care Provider [phone] Encounter Details Date Type Department Care Team (Latest Contact Info) Description 09/21/2024 Travel Social History Tobacco Use Types Packs/Day Years [...] Description 11/19/2024 11:15 AM EDT Office Visit [facility] [address] [place] [phone] Janie Benedict ANP [address] [place] [address] documented as of this encounter Visit Diagnoses Not on filedocumented in this encounter Additional Health Concerns Assessment Noted Time PHQ-9 Depression Total Score: 0 03/13/20 24 3:16 PM EDT documented as of this encounter Care Teams Manager Core Relationship Specialty Start Date End Date Janie Benedict ANP [address] [place] [phone] PCP - General Family Medicine 08/08/20 documented as of this encounter
--- OUTSIDE RECORDS SUMMARY | 2024-10-08 22:36 | XMS_ITS | Encounter Summary ---
Author Organization [employer] Address [address] [place] [address] Care Team Providers Care Wet Process Assistant Head Miller Name Role Phone Janie Benedict Primary Care Provider [phone] Encounter Details Date Type Department Care Team (Latest Contact Info) Description 09/25/2024 Travel Social History Tobacco Use Types Packs/Day Years Used Date Smoking Tobacco: Never Passive Smoke Exposure: Past Smokeless Tobacco: Never Comments:weed Alcohol Use Standard Drinks/Week Comments Yes [...] Description 11/19/2024 11:15 AM EDT Office Visit [facility] [address] [place] [address] Janie Benedict ANP [address] [place] [address] documented as of this encounter Visit Diagnoses Not on filedocumented in this encounter Additional Health Concerns Assessment Noted Time PHQ-9 Depression Total Score: 0 03/13/20 24 3:16 PM EDT documented as of this encounter Care Teams Wet Process Assistant Head Miller Relationship Specialty Start Date End Date Janie Benedict ANP [address] [place] [phone] PCP - General Family Medicine 08/08/20 documented as of this encounter
--- OUTSIDE RECORDS SUMMARY | 2024-10-08 22:36 | XMS_ITS | Encounter Summary ---
Author Organization [employer] Address [address] [place] [address] [address] [place] [address] Care Team Providers Care Signals Intelligence Analysis Manager Name Role Phone Janie Benedict Primary Care Provider [phone] Reason for Referral * Consultation (Routine) - Closed Specialty Diagnoses / Procedures Referred By Mary Ann willams Referred To Contact Otolaryngology Diagnoses History of recurrent ear infection Janie Benedict ANP [address] [place] [address] Phone: tel: fax: Referral ID Status Reason Start Date Expiration Date V isits Requested Visits Authorized [id number] Closed Specialty Services Required 09/17/2024 09/17/2025 1 1 Encounter Details Date Type Department Care Team ([facility] st Contact Info) Description 09/17/2024 Orders Only [facility] [address] [place] [address] Janie Benedict ANP [address] [place] [address] History of recurrent ear infection (Primary Dx); Chronic otitis externa of right ear, unspecified type Social History Tobacco Use Types Packs/Day Years [...] AM EDT documented as of this encounter Progress Notes * ANGELICA Howe - 09/17/2024 3:27 PM EST Pt w/ recurrent ear infections. H/o chronic OE, last treated 02/17/24 and then again 03/2024, lost tofollow-up. Appreciate ENT eval for recurrent infections. documented in this encounter Plan of Treatment Upcoming Encounters Date Type Department Care Team (Late st Contact Info) Description 11/19/2024 11:15 AM EDT Office Visit [facility] [address] [place] [address] Janie Benedict ANP [address] [place] [address] Scheduled Referrals Name Type Priority Associated Diagnoses Orde r Schedule Referral to ENT Outpatient Referral Routine History of recurrent ear infection Expected: 09/17/2024 (Approximate), Expires: 09/17/2025 documented as of this encounter Procedures Procedure Name Priority Date/Time Associated Diagnosis Comments HEPATITIS B SURFACE ANTIBODY, QUALITATIVE Routine 09/25/2024 10:49 AM EST History of recurrent ear infection documented in this encounter Results * Hepatitis B Surface Antibody, Qualitative (09/25/2024 10:49 AM EST) ~Hepatitis B Surface Antibody REACTIVE Nonreactive [facility] Comment:REACTIVE: > 11.99 mI U/mL 09/25/2024 10:4 9 AM EST 09/25/2024 11:20 AM EST Janie DOMINGUEZ LAB BLOOD ORDERABLES Final Resul t [facility] [address] [place] [phone] documented in this encounter Visit Diagnoses Diagnosis History of recurrent ear infection- Primary Chronic otitis externa of right ear, unspecified type documented in this encounter Additional Health Concerns Assessment Noted Time PHQ-9 Depression Total Score: 0 03/13/20 24 3:16 PM EDT documented as of this encounter Care Teams Signals Intelligence Analysis Manager Relationship Specialty Start Date End Date Janie Benedict ANP [address] [place] [address] PCP - General Family Medicine 08/08/20 documented as of this encounter
--- OUTSIDE RECORDS SUMMARY | 2024-10-08 22:36 | XMS_ITS | Encounter Summary ---
Author Organization [employer] Address [address] [facility] [address] [place] [address] Care Team Providers Care Case Filler Name Role Phone Janie Benedict Primary Care Provider [phone] Reason for Visit * Reason Comments Follow-up Encounter Details Date Type Department Care Team ([facility] Contact Info) Description 09/25/2024 9:30 AM EST Office Visit [facility] [address] [place] [address] Janie Benedict ANP [address] [place] [address] Chronic otitis externa of right ear, unspecified type (Primary Dx); Tinea cruris; Routine screening for STI (sexually transmitted infection) Social History Tobacco Use Types Packs/Day Years [...] AM EDT documented as of this encounter Last Filed Vital Signs Vital Sign Reading Time Taken Comments Blood Pressure 129/87 09/25/2024 9:56 AM EST Pulse 64 09/25/2024 9:56 AM EST Temperature 36.8 ??C (98.2 ??F) 09/25/2024 9:56 AM ES T Respiratory Rate - - Oxygen Saturation 98% 09/25/2024 9:56 AM EST Inhaled Oxygen Concentration - - Weight 71.1 kg (156 lb 12.8 oz) 09/25/2024 9:56 AM EST Height - - Body Mass Index 24.56 03/13/2024 4:13 PM EDT documented in this encounter Patient Instructions * Patient Instructions* ANGELICA Howe - 09/25/2024 9:30 AM EST Once your health insurance is active please send us a message or give us a call so we can send the referral for the research physician. For your ear infection: Take Diflucan 150 mg by mouth once per week for 4 weeks. please use the clotrimazole drops 4 times a day into your right ear for 21 days. You can use the clotrimazole cream on the outside of your ear and behind your ear. Please do not use the clotrimazole-betamethasone cream as this is probably too potent for your groin. Please use the clotrimazole cream twice daily for 14-28 days on your groin. documented in this encounter Progress Notes * ANGELICA Howe - 09/25/2024 9:30 AM EST SUBJECTIVE: Juan Nava is a 29 y.o. year old male who presents for f/u . Denies recent illness, injury, or hospitalization. PMH chronic OE, ADD Acute Concerns: Rash and ear infx: Juan is here today for follow-up chronic right otitis externa. In past we have tried Corticosporin HC which was not effective and then clotrimazole solution which was effective but Juan did not use it as directed and only used it once daily for a short period of time. He did have improvement in his symptoms but these then recurred. He has itching in right ear, discharge flaking and sometimes pain that extends to below his right ear. He has not been able to see ENT as previously referred due to insurance issues. He also has itching and rash in groin and gluteal fold. Reports improvement with clotrimazole betamethasone more so than clotrimazole cream by itself. He is showering 4 times a day with very hot water to relieve the itching. Currently on house arrest and so needs to plan in advance for appointments to get permission from his p.o. He has a new girlfriend with whom he is not currently sexually active but he is not planningto become apparent in the next 12 months. He is not using condoms when he has been sexually active in past with this partner. He would like STI testing. Smokes MJ. No cigarettes. Occasional alcohol. Works from home. Social History Social History Narrative Not on file Patient Active Problem List Diagnosis Acne Attention deficit Testicular lump Insomnia Tinea cruris Acute pain of left shoulder Chronic otitis externa of right ear History reviewed. No pertinent surgical history. No family history on file. Review of Systems Constitutional: Negative for chills and fever. HENT: Positive for ear pain and hearing loss. Negative for congestion, postnasal drip and sore throat. Respiratory: Negative for cough and shortness of breath. Cardiovascular: Negative for chest pain. Gastrointestinal: Negative for constipation and diarrhea. Endocrine: Negative for polydipsia, polyphagia and polyuria. Genitourinary: Negative for decreased urine volume, dysuria, penile discharge, testicular pain and urgency. Skin: Positive for rash. Neurological: Negative for weakness. Psychiatric/Behavioral: Negative for sleep disturbance. OBJECTIVE: Vitals: 09/25/24 0956 BP: 129/87 BP Location: Right arm Patient Position: Sitting BP Cuff Size: Adult Pulse: 64 Temp: 98.2 ??F (36.8 ??C) TempSrc: Temporal SpO2: 98% Weight: 156 lb 12.8 oz (71.1 kg) Physical Exam Constitutional: General: He is not in acute distress. Appearance: Normal appearance. He is not ill-appearing. HENT: Head: Normocephalic and atraumatic. Comments: Right TM is not well-visualized, canal is swollen, has scaling and is mildly erythematous. Starting at the opening of the canal and extending to the pinna and inferior and behind the pinna is scaling and fissures, dry yellow crusting Left Ear: Tympanic membrane, ear canal and external ear normal. Eyes: Extraocular Movements: Extraocular movements intact. Cardiovascular: Rate and Rhythm: Normal rate. Pulmonary: Effort: Pulmonary effort is normal. No accessory muscle usage or respiratory distress. Genitourinary: Penis: Normal and uncircumcised. Comments: small areas with fine scaling and subtle erythema on penile shaft, a few pearly papules on penile shaft. No rash in inguinal areas. Gluteal cleft w/ small superficial fissure. Neurological: Mental Status: He is alert and oriented to person, place, and time. Psychiatric: Mood and Affect: Mood normal. Behavior: Behavior normal. ASSESSMENT/PLAN Juan was seen today for follow-up. Diagnoses and all orders for this visit: Chronic otitis externa of right ear, unspecified type (Primary) Once your health insurance is active please send us a message or give us a call so we can send the referral for the research physician. For your ear infection: Take Diflucan 150 mg by mouth once per week for 4 weeks. please use the clotrimazole drops 4 times a day into your right ear for 21 days. You can use the clotrimazole cream on the outside of your ear and behind your ear. - clotrimazole (Lotrimin) 1 % external solution; 4 drops into affected ear 4-5 times daily for 21 days - fluconazole (Diflucan) 150 MG tablet; Take 1 pill once per week for 4 weeks Tinea cruris Asked him to please stop showering 4 times a day. Use separate towel for groin/gluteal cleft and rest of body. Minimal rash in groin or gluteal area today. Advised him not to use clotrimazole/betamethasone and to use clotrimazole only twice daily for 14 to 28 days if needed. Dry well, may use OTC product like [employer] or similar once healed. - fluconazole (Diflucan) 150 MG tablet; Take 1 pill once per week for 4 weeks Routine screening for STI (sexually transmitted infection) Gave condoms and encouraged to use. Reviewed with Juan his goal of not becoming a parent in the next 12 months. - Chlamydia/N. Gonorrhoeae RNA, TMA, Urine - RPR (Monitor) with Reflex to Titer; Future - Hepatitis C Antibody with Reflex to HCV, RNA, Quantitative, Real-Time PCR; Future - HIV-1/2 Antigen and Antibodies, Fourth Generation, with Reflexes; Future Follow Up: 6 weeks for OE recheck Current Outpatient Medications on File Prior to Visit Medication Sig Dispense Refill clotrimazole (Lotrimin) 1 % cream APPLY BY TOPICAL ROUTE 2 TIMES EVERY DAY FOR 4 WEEKS TO THE AFFECTED AND SURROUNDING AREAS OF SKIN 60 g 1 Fluocinolone Acetonide Scalp 0.01 % oil APPLY A THIN LAYER TOPICALLY TO DAMP SCALP, MASSAGE WELL + COVER FOR 4HRS/OVERNIGHT THEN WASH OFF 118.28 mL 0 hydrocortisone 2.5 % cream APLIQUE CAPA PREM EL ROSA ELENA AFECTADA DOS VECES AL D A 30 g 0 naproxen (Naprosyn) 500 MG tablet Take 1 tablet (500 mg) by mouth if needed in the morning and at bedtime for mild pain. Take with food 50 tablet 0 Uhfvvyem-Kkghmwdfa-OD 1 % solution Administer 3 drops into affected ear(s) 4 times daily. 10 mL 0 [DISCONTINUED] clotrimazole (Lotrimin) 1 % external solution 4 drops into affected ear 4-5 times daily for 21 days 15 mL 0 No current facility-administered medications on file prior to visit. documented in this encounter Plan of Treatment Upcoming Encounters Date Type Department Care Team (Late st Contact Info) Description 11/19/2024 11:15 AM EDT Office Visit [facility] [address] [place] [address] Janie Benedict ANP [address] [place] [address] documented as of this encounter Procedures Procedure Name Priority Date/Time Associated Diagnosis Comments HEPATITIS C AB W/REFL TO HCV RNA, QN, PCR Routine 09/25/2024 10:49 AM EST Routine screening for STI (sexually transmitted infection) RPR (MONITOR) W/REFL TITER Routine 09/25/2024 10:49 AM EST Routine screening for STI (sexually transmitted infection) HIV 1/2 ANTIGEN/ANTIBODY, FOURTH GENERATION W/RFL Routine 09/25/2024 10:49 AM EST Routine screening for STI (sexually transmitted infection) CHLAMYDIA/N. GONORRHOEAE RNA, TMA, UROGENITAL Routine 09/25/2024 10:38 AM EST Routine screening for STI (sexually transmitted infection) documented in this encounter Results * HIV-1/2 Antigen and Antibodies, Fourth Generation, with Reflexes (09/25/2024 10:49 AM EST) [facility] HIV AB/AG Nonreactive Nonreactive [facility] Comment:HIV-1 p24 Ag and/or HIV-1/HIV-2 Ab not detected.A test result that is nonreactive does not exclude thepossibility of exposure to or infection with HIV-1 and/orHIV-2. Nonreactive results in this assay for individualswith prior exposure to HIV-1 and/or HIV-2 may be due toantigen and antibody levels that are below the limit ofdetection of this assay.The [employer] HIV Ag/Ab Combo assay result andsupplemental assay results should be interpreted inconjunction with the patient's clinical presentation,history and other laboratory results. If the results areinconsistent with clinical evidence, additional testing issuggested to confirm the result. Blood Venous blood specimen / Unknown 09/25/2024 10:49 AM EST 09/25/2024 11:20 AM EST Janie Benedict [facility] BLOOD ORDERABLES Final Resul t Performing Organization Address [facility] de Phone Number [facility] [address] [place] [phone] * Hepatitis C Antibody with Reflex to HCV, RNA, Quantitative, Real-Time PCR (09/25/2024 10:49 AM EST) Hepatitis C Antibody Nonreactive Nonreactive [facility] Comment:Antibodies to HCV no t detected; does not exclude early acuteHCV infection. Blood Venous blood specimen / Unknown 09/25/2024 10:49 AM EST 09/25/2024 11:20 AM EST Result [facility] Janie Benedict [facility] BLOOD ORDERABLES Final Resul t Performing Organization Address [facility] de Phone Number [facility] [address] [place] [phone] * RPR (Monitor) with Reflex to??Titer (09/25/2024 10:49 AM EST) RPR (Monitor) w/Refl Titer NON-REACTI VE NON-REACT MIRANDA [facility] Comment:THIS TEST WAS PERFOR MED AT:[employer] [place] [phone] MORENO MD Rapid Plasma Reagin Ab Titer TNP [facility] Blood Venous blood specimen / Unknown 09/25/2024 10:49 AM EST 09/25/2024 11:20 AM EST us Janie Benedict [facility] BLOOD ORDERABLES Final Resul t [facility] [address] [place] [address] [phone] * Chlamydia/N. Gonorrhoeae RNA, TMA, Urine (09/25/2024 10:38 AM EST) CT PCR NOT DETECTED Not Detect. [facility] Comment:A not detected test result does [...] psychologicalconsequences. NG PCR NOT DETECTED Not Detect. [facility] Comment:A not detected test result does [...] AM EST 09/25/2024 4:46 PM EST Narrative [facility] - 09/26/2024 1:20 PM EST Urine us Janie DOMINGUEZ LAB MICROBIOLOGY - GENERAL ORDER ALTHEA Final Result [facility] [address] [place] [phone] documented in this encounter Visit Diagnoses Diagnosis Chronic otitis externa of right ear, unspecified type- Primary Tinea cruris Dermatophytosis of groin and perianal area Routine screening for STI (sexually transmitted infection) Screening examination for venereal disease documented in this encounter Additional Health Concerns Assessment Noted Time PHQ-9 Depression Total Score: 0 03/13/20 24 3:16 PM EDT documented as of this encounter Care Teams Case Filler Relationship Specialty Start Date End Date Janie Benedict ANP [address] [place] [phone] PCP - General Family Medicine 08/08/20 documented as of this encounter
[2024-10-08] MEDS: LORazepam 1 MG TABLET 2 MG PO (23:35)
--- NOTE | 2024-10-08 23:43 | PC.NURSE ---
patient was searched by t/w and no evidence of contraband was found, abrasion on r forearm patient states he was falling and stopped by police? appears >24hrs old
[2024-10-09 00:03] LABS: MANUAL DIFF FLAG NO
[2024-10-09 00:04] LABS: Basophils Percent Auto 0.8 % (0-2); Eosinophils Absolute Auto 0.2 X10*3/uL (0.0-0.4); Eosinophils Percent Auto 3.2 % (0-4); Hemoglobin 13.9 g/dl (14.0-18.0); Imm Gran Abs Auto 0.01 X10*3/uL (0.00-0.03); Imm Gran Pct Auto 0.2 % (0.0-0.4); Lymphocytes Absolute Auto 1.5 X10*3/uL (1.2-4.9); Lymphocytes Percent Auto 27.7 % (20-40); Mean Corpuscular HGB Conc 35.6 g/dl (31.0-36.0); Mean Corpuscular Hemoglobin 30.6 pg (27.0-33.0); Mean Corpuscular Volume 85.9 fL (80.0-98.0); Mean Platelet Volume 9.7 fL (9.4-12.4); Monocytes Absolute Auto 0.3 X10*3/uL (0.1-1.2); Monocytes Percent Auto 5.1 % (2-11); Neutrophils Absolute Auto 3.3 x10*3/uL (2.0-8.3); Platelet Count 241 X10*3/uL (160-400); Red Blood Count 4.54 X10*6/uL (4.60-5.80); Red Cell Distribution Width 11.8 % (11.0-16.0); White Blood Count 5.3 X10*3/uL (4.8-10.8)
[2024-10-09 00:20] LABS: Amphetamine Screen Urine Not Detected (Not Detect); Barbiturates, Urine Not Detected (Not Detect); Benzodiazepines Screen Urine Not Detected (Not Detect); Buprenorphine Scr Not Detected (Not Detect); Cannabinoid Screen Urine POSITIVE (Not Detect); Cocaine Screen Urine Not Detected (Not Detect); Fentanyl, urine Not Detected (Not Detect); Methadone Screen, Urine Not Detected (Not Detect); Opiate Screen Urine Not Detected (Not Detect); Oxycodone Screen Urine Not Detected (Not Detect); Phencyclidine Screen Urine Not Detected (Not Detect)
[2024-10-09 00:21] LABS: Alanine Aminotransferase 27 U/L (0-40); Albumin Level 4.5 g/dL (3.5-5.0); Alkaline Phosphatase 104 U/L (39-117); Anion Gap 15 (12-20); Aspartate Amino Transferase 42 U/L (5-37); Bilirubin Total 0.2 mg/dL (0.0-1.0); Blood Urea Nitrogen 13 mg/dL (9-16); Calcium 9.2 mg/dL (8.4-10.2); Carbon Dioxide 25 mmol/L (22-29); Chloride 108 mmol/L (96-108); Creatinine Clr Calc Pharmacy 120.9; Estimated Glomerular Filt Rate > 60; Ethanol 160 mg/dL; Glucose Random 97 mg/dL (60-115); Potassium 3.8 mmol/L (3.3-5.1); Sodium 144 mmol/L (135-145); Total Protein 7.7 g/dL (6.5-8.0)
[2024-10-09 00:22] LABS: Acetaminophen LAB < 3 mcg/mL (<30); Salicylate < 5.0 mg/dL (15-30)
[2024-10-09 06:40] VITALS: BP 116/72; PULSE 72; RESP 18; TEMP 36.8; O2SAT 96
--- NOTE | 2024-10-09 07:10 | PC.NURSE ---
Assumed care of patient at 0645, patient appears to be sleeping, respirations even and unlabored, no apparent distress is noted. Continue plan of care for CARE team follow up
[2024-10-09 09:38] VITALS: BP 109/67; PULSE 74; RESP 16; TEMP 36.3; O2SAT 97
== END 2024-10-09 09:41 | disposition home or self-care (01) ==
PROVIDERS: Emergency Provider Internal Medicine
DX: F33.1 Major depressive disorder, recurrent, moderate (principal); F41.8 Other specified anxiety disorders; F43.0 Acute stress reaction; Z51.81 Encounter for therapeutic drug level monitoring
CPT/HCPCS: 36415; 80053; 80143; 80179; 80307; 85025; 99284; 99285; S9485

== ENCOUNTER 2024-10-20 04:44 | Emergency (ER) | payer OTHER, SELFPAY ==
--- NOTE | ~2024-10-20 | XR_ITS ---
EXAMINATION: XR CERVICAL SPINE CLINICAL INFORMATION: trauma COMPARISON: None available. TECHNIQUE: 3 views of the cervical spine were obtained. FINDINGS: Craniocervical junction is intact. No acute cortical disruption or gross malalignment. No lytic or blastic lesions. Upper airway is patent. XR/XR cervical spine 3V IMPRESSION: No acute fracture or trauma-related listhesis. If patient's symptoms persist recommend CT versus noncontrast MRI cervical spine. Electronically signed by: Andrade Cruz MD 10/20/2024 09:04 AM PAT[facility]LLY
--- NOTE | ~2024-10-20 | CT_ITS ---
EXAMINATION: CT CERVICAL SPINE WITHOUT CONTRAST CLINICAL INFORMATION: Trauma, pain after wrestling. COMPARISON: None available. Cervical x-rays earlier same day. TECHNIQUE: Spiral CT images of the cervical spine performed in axial plane without contrast. Multiplanar reformatted imaging was constructed from the axial data set. This CT examination was performed using dose optimization techniques as appropriate, variously including the following: *Automated exposure control *Adjustment of mA and/or kV according to patient size (this includes techniques or standardized protocols for targeted exams where dose is matched to indication/reason for exam; i.e. extremities or head) *Use of iterative reconstruction technique FINDINGS: There is a minimal right convex scoliosis. There is straightening of the normal lordosis. There is no fracture, compression deformity, traumatic subluxation, or suspicious bone lesion. There is normal facet alignment bilaterally. Craniocervical junction, and C1-2 articulation are intact and normally aligned. Minimal disc space narrowing C5-6. Disc spaces otherwise normal. No gross evidence of canal stenosis allowing for modality. No significant disc herniation seen. Prevertebral and paravertebral soft tissues are normal. No neck soft tissue abnormality identified. Normal thyroid. Mildly prominent adenoidal soft tissues, consistent with reactive etiology. Imaged lung apices are clear. CT/CT cervical spine wo IV con IMPRESSION: No CT evidence of acute cervical spine fracture or injury. Electronically signed by: Alex Garcia MD 10/20/2024 10:57 AM PATY
--- NOTE | ~2024-10-20 | XR_ITS ---
EXAMINATION: XR CHEST CLINICAL INFORMATION: chest wall pain/upper back pain trauma COMPARISON: November 06, 2016 TECHNIQUE: 2 views of the chest were obtained. FINDINGS: No consolidation, pleural effusion or pneumothorax. Cardiomediastinal silhouette size is normal. Osseous structures are intact. XR/XR chest 2V IMPRESSION: No acute airspace disease. Electronically signed by: Andrade Cruz MD 10/20/2024 09:03 AM [facility]
[2024-10-20 04:52] VITALS: BP 146/94; PULSE 65; RESP 20; TEMP 37.3; O2SAT 99; BMI 25.0
--- NOTE | 2024-10-20 07:34 | ED.NECK ---
HPI - Neck Pain/Injury General Chief Complaint: Neck Pain/Injury Stated Complaint: neck pain after wrestling practice Time Seen by Provider: 10/20/24 07:21 Mode of arrival: ambulatory Limitations: no limitations History of Present Illness HPI Narrative: This is a 29 years old male presented ambulatory to the emergency department complaining of neck pain he states on Saturday (4 days ago) was wrestling, denies they did not have any pain the pain started yesterday, the pain is localized in the neck and upper chest wall. He has no headache no upper extremity pain MD complaint: neck pain Onset (ago): day(s) (4) Place: sports venue Severity: moderate Quality: burning Duration: constant Relieving factors: none Exacerbating factors: movement of neck Context: other (Wrestling) Associated symptoms: none Related Data Previous Rx's ?Medication ?Instructions ?Recorded lidocaine 3 %-hydrocortisone 0.5 % 1 appl NH BID #1 ea 10/06/24 rectal kit, cream and wipes cyclobenzaprine 10 mg tablet 10 mg PO TID PRN muscle spasm #10 10/20/24 tabs ibuprofen 800 mg tablet 800 mg PO Q8H PRN pain #14 tabs 10/20/24 Allergies Allergy/AdvReac Type Severity Reaction Status Date / Time No Known Allergies Allergy Verified 10/20/24 04:53 Review of Systems Constitutional: Constitutional: Reports no additional constitutional complaints Cardiovascular: Cardiovascular: Reports no additional cardiovascular complaints Musculoskeletal: Musculoskeletal: Reports no additional musculoskeletal complaints [facility] Past Medical History [facility] Narrative: History of anxiety Medical History Patient denies significant medical history Family History Family History Other Patient denies medical problems Social History Social History Alcohol intake: current Alcohol intake frequency: 3 or more drinks per day Patient Tobacco Use Status: Never used Tobacco Advance Directives: No Do you have a plan to hurt others: No Plan Current occupational status: employed 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 Physical Exam Vital Signs: Vital Signs: Last Vital Signs Temp 98.2 F 10/20/24 09:39 Pulse 75 10/20/24 09:39 Resp 18 10/20/24 09:39 BP 112/71 10/20/24 09:39 Pulse Ox 99 10/20/24 09:39 O2 Del Method Room Air 10/20/24 09:39 BMI result Body Mass Index 25.0 He looks well not toxic appearing Const: General: cooperative, comfortable and no acute distress Orientation/consciousness: patient oriented x3 Limitations: no limitations HEENT: Head: Yes normal to inspection General nose exam: Normal external nose present Face and sinus: Yes normal facial exam Neck: Other: Exam shows tenderness in the mid cervical spine no lateral tenderness Neck: Yes other (Decreased range of motion) Chest: Chest palpation & inspection: normal inspection of the chest Resp: Effort & Inspection: normal respiratory effort Auscultation: clear to auscultation bilaterally Cardio: Jugular venous distension: no JVD Rate: regular rate Rhythm: regular rhythm GI: Inspection: Yes normal to inspection Palpation (GI): Soft to palpation, not firm and nontender Skin: General skin exam: no rashes or lesions noted and elasticity normal Lesions: no lesions Rashes: no rashes Neuro: Other: Strength normal upper and lower extremity, sensation normal upper and lower extremity gait normal no deficits in sensation of the upper or lower extremity General: patient oriented x3 Course Reevaluation(s) Reevaluation #1: Workup completed CT C-spine negative no fracture chest x-ray was most likely muscular strain. I do not think he has a carotid dissection the pain is midline no lateral, he is neurologically intact he has no deficit in strength or sensation. I re-examined the patient at this time he is doing much better he is able to move the neck better anticipate discharge Time: 11:46 Medications Administered Discontinued Medications Generic Name Dose Route Start Last Admin Trade Name Giulianoq PRN Reason Stop Dose Admin Diazepam 5 mg 10/20/24 07:24 10/20/24 07:37 Diazepam 5 Mg Tablet PO 10/20/24 07:25 5 mg ONCE ONE Administration Ibuprofen 800 mg 10/20/24 07:29 10/20/24 07:37 Ibuprofen 800 Mg Tablet PO 10/20/24 07:30 800 mg ONCE ONE Administration Medical Decision Making Medical Decision Making [facility] Narrative: Patient presented to the emergency department with a chief complaint of upper neck pain we will obtain imaging Differential Diagnosis Differential Diagnoses: The differential diagnosis associated with the presentation includes Differential diagnosis is cervical spine fracture/strain of the cervical spine Admission/Observation Consideration of admission/observation: Escalation of care including admission/observation considered Independent Interpretation I performed an independent interpretation of an: Plain X-Ray and CT Scan Interpretation: No fracture Radiology Impression Discussion of test interpretation with radiology: I have reviewed the radiologist's reading. Independent Historian Clinical information obtained from an independent historian. History obtained from or confirmed by: Other (mother) Discharge Plan Discharge Clinical Impression: Neck strain Qualifiers: Encounter type: initial encounter Qualified Code(s): S16.1XXA - Strain of muscle, fascia and tendon at neck level, initial encounter Patient Disposition: Home, Self-Care Instructions: Cervical Strain (ED) Additional Instructions: Follow-up with your primary care physician return to the emergency room if you worse we sent a prescription for ibuprofen to your pharmacy Prescriptions: New cyclobenzaprine 10 mg tablet 10 mg PO TID PRN (Reason: muscle spasm) Qty: 10 0RF ibuprofen 800 mg tablet 800 mg PO Q8H PRN (Reason: pain) Qty: 14 0RF No Action lidocaine HCl-hydrocortison ac 3-0.5 % kit 1 appl NH BID Qty: 1 0RF Referrals: Janie Benedict TIMBER SELECTOR [Primary Care Provider] - 2 days Print Language: Spanish
[2024-10-20] MEDS: diazePAM 5 MG TABLET PO (07:37)
[2024-10-20] MEDS: Ibuprofen 800 MG TABLET PO (07:37)
--- NOTE | 2024-10-20 07:42 | PC.NURSE ---
pt medicated per provider order. effectiveness pending. heat pack applied to affected area. pt waiting to go to xray at this time.
--- NOTE | 2024-10-20 08:48 | PC.NURSE ---
pt to xray at this time.
[2024-10-20 09:39] VITALS: BP 112/71; PULSE 75; RESP 18; TEMP 36.8; O2SAT 99
[2024-10-20 11:48] VITALS: BP 129/74; PULSE 61; RESP 15; TEMP 37.1; O2SAT 99
[2024-10-20 11:52] VITALS: BP 129/74; PULSE 61; RESP 15; TEMP 37.1; O2SAT 99
== END 2024-10-20 11:54 | disposition home or self-care (01) ==
PROVIDERS: Emergency Provider Emergency Medicine; PCP Nurse Practitioner Primary Care
DX: S16.1XXA Strain of muscle, fascia and tendon at neck level, initial encounter (principal); M54.2 Cervicalgia; R51.9 Headache, unspecified; R07.89 Other chest pain; M54.6 Pain in thoracic spine; X50.0XXA Overexertion from strenuous movement or load, initial encounter; Y93.72 Activity, wrestling; Y93.59 Activity, other involving other sports and athletics played individually; Y92.39 Other specified sports and athletic area as the place of occurrence of the external cause; Y99.8 Other external cause status
CPT/HCPCS: 71046; 72040; 72125; 99283; 99284

== ENCOUNTER → 2024-10-20 07:24 | Outpatient (BNV) | payer OTHER, SELFPAY | PROVIDERS: Emergency Provider Emergency Medicine; PCP Nurse Practitioner Primary Care; Visit Provider Radiology Diagnostic Radiology | DX: M54.2 Cervicalgia (principal); M54.6 Pain in thoracic spine | CPT/HCPCS: 71046; 72040; 72125 ==

== ENCOUNTER 2025-06-03 11:54 | Outpatient (REF) | payer OTHER, SELFPAY ==
--- OUTSIDE RECORDS SUMMARY | 2025-06-03 11:00 | XMS_ITS | Encounter Summary ---
Author Organization [employer] [facility] Address [address] [place] [address] [address] [address] Care Team Providers Care Can Closing Machine Tender Name Role Phone Janie Benedict Primary Care Provider [phone] Reason for Referral * Consultation (Routine) - Authorized Specialty Diagnoses / Procedures Referred By Mary Ann t Referred To Contact Behavioral Health Diagnoses Depression, unspecified depression type Attention deficit hyperactivity disorder (ADHD), unspecified ADHD type Janie Benedict ANP [address] [place] [address] Phone: tel: fax: Referral ID Status Reason Start Date Expiration Date Visits Requested Visits Authorized [id number] Authorized Specialty Services Required 06/03/2025 06/03/2026 1 1 * Consultation (Routine) - Closed Specialty Diagnoses / Procedures Referred By Mary Ann t Referred To Contact Otolaryngology Diagnoses Chronic otitis externa of right ear, unspecified type Janie Benedict ANP [address] [place] [address] Phone: tel: fax: [facility] [address] Phone: tel: fax: Referral ID Status Reason Start Date Expiration Date V isits Requested Visits Authorized [id number] Closed Specialty Services Required 06/03/2025 06/03/2026 1 1 * Consultation (Routine) - Authorized Specialty Diagnoses / Procedures Referred By Mary Ann t Referred To Contact Dermatology Diagnoses Wart of hand Rash Janie Benedict ANP [address] [place] [address] Phone: tel: fax: Referral ID Status Reason Start Date Expiration Date Visits Requested Visits Authorized [id number] Authorized Specialty Services Required 06/03/2025 06/03/2026 1 1 Reason for Visit * Reason Comments Follow-up Encounter Details Date Type Department Care Team (Latest Contact Info) Description 06/03/2025 11:00 AM EDT Office Visit [facility] [address] [place] [phone] Janie Benedict ANP [address] [place] [address] Wart of hand (Primary Dx); Chronic otitis externa of right ear, unspecified type; Rash; Routine screening for STI (sexually transmitted infection); Depression, unspecified depression type; Attention deficit hyperactivity disorder (ADHD), unspecified ADHD type Social History Tobacco Use Types Packs/Day Years Used Date Smoking Tobacco: Never Passive Smoke Exposure: Past Smokeless Tobacco: Never Tobacco Cessation:Counseling Given: Not Answered Comments:weed Alcohol Use Standard Drinks/Week Comments Yes 2 (1 standard drink = 0.6 oz pur e alcohol) Alcohol Answer Date Recorded Frequency of Alcohol Consumption Not on file 01/03/2024 Average Number of Drinks Not on file 024 Frequency of Binge Drinking Not on file 12/09 Score 0 01/03/2024 Depression Answer Date Recorded Patient Health Questionnaire-9 Score 10 06/03/2025 Patient Health Questionnaire-9 Score 10 06/03/2025 Last PHQ-9: Questionnaire Data Not on file 0 06/03/2025 Housing Stability Answer Date Recorded What is your housing situation today? I have wilmer sarmiento 06/03/[address] you li ve. Do you have problems with any of the following? None of the above 06/03/2025 Food Insecurity Answer Date Recorded Within the past 12 months, y ou worried that your food would run out before you got money to buy more: Sometimes True 2024 Within the past 12 months,th e food you bought just didn't last and you didn't have enough money to get more: Sometimes True 06/03/2025 Transportation Answer Date Recorded In the past 12 months, has l ack of transportation kept you from medical appts, meetings, work or from getting things needed for daily living? No 06/03/2025 Utilities Answer Date Recorded In the past 12 months, has t he electric, gas, oil or water company threatened to shut off services in your home? No 06/03/2025 Depression Answer Date Recorded Patient Health Questionnaire-2 Score 2 06/03/2025 Internet Access Answer Date Recorded Internet Access Q1 Yes 06/03/2025 Internet Access Q2 Not on file 06/03/2025 Sex and Gender Information Value Date Recorded Sex Assigned at Male 07/09/2022 10:21 AM EDT Legal Sex Male 10:21 AM EDT Gender Identity Male 07/09/2022 10:21 AM EDT Sexual Orientation Straight 07/09/2022 10 :21 AM EDT documented as of this encounter Last Filed Vital Signs Vital Sign Reading Time Taken Comments Blood Pressure 120/80 06/03/2025 11:04 AM EDT Pulse 84 06/03/2025 11:04 AM EDT Temperature 36.6 C (97.8 F) 06/03/2025 11:04 AM EDT Respiratory Rate 20 06/03/2025 11:04 AM EDT Oxygen Saturation 99% 06/03/2025 11:04 AM EDT Inhaled Oxygen Concentration - - Weight 69.9 kg (154 lb 2 oz) 06/03/2025 11:04 AM EDT Height 170.2 cm (5' 7 ) 06/03/2025 11:04 AM EDT Body Mass Index 24.14 06/03/2025 11:04 AM EDT documented in this encounter Functional Status * Over the past 2 weeks, how often have you been bothered by any of the following problems? Question Answer Date of Assessment Author Patient Health Questionnaire -2 Score 2 06/03/2025 11:58 AM EDT Jacek Juares [place] * Little interest or pleasure in doing things Answer Date of Assessment Author Several days 06/03/2025 11:58 AM EDT Jacek Juares MA * Feeling down, depressed, or hopeless Answer Date of Assessment Author Several days 06/03/2025 11:58 AM Jacek Viramontes [place] * Trouble falling or staying asleep, or sleeping too much Answer Date of Assessment Author Nearly every day 06/03/2025 11:58 AM Jacek Viramontes MA * Feeling tired or having little energy Answer Date of Assessment Author Several days 06/03/2025 11:58 AM BRENDAT Jacek Juares [place] * Poor appetite or overeating Answer Date of Assessment Author Several days 06/03/2025 11:58 AM BRENDAT Jacek Juares [place] * Feeling bad about yourself - or that you are a failure or have let yourself or your family down Answer Date of Assessment Author Several days 06/03/2025 11:58 AM Jacek Viramontes [place] * Trouble concentrating on things, such as reading the newspaper or watching television Answer Date of Assessment Author Several days 06/03/2025 11:58 AM Jacek Viramontes [place] * Moving or speaking so slowly that other people could have noticed? Or the opposite - being so fidgety or restless that you have been moving around a lot more than usual. Answer Date of Assessment Author Not at all 06/03/2025 11:58 AM Jacek Vriamontes MA * Thoughts that you would be better off or hurting yourself in some way Answer Date of Assessment Author Several days 06/03/2025 11:58 AM Jacek Viramontes MA * Patient Health Questionnaire-9 Score Answer Date of Assessment Author 10 06/03/2025 11:58 AM Jacek Viramontes MA * How difficult have these problems made it for you to do your work, take care of things at home, or get along with other people? Answer Date of Assessment Author Somewhat difficult 06/03/2025 11:58 AM Jacek Bills [place] * Over the last 2 weeks, how often have you been bothered by any of the following problems? Question Answer Date of Assessment Author Feeling nervous, anxious, or on edge 2 06/03/2025 11:59 AM Jacek Viramontes MA Not being able to stop or co ntrol worrying 1 06/03/2025 11:59 AM EDT Jacek Juares MA Worrying too much about diff erent things 3 06/03/2025 11:59 AM EDT Jacek Juares MA Trouble relaxing 3 06/03/2025 11:59 AM EDT Jacek Juares MA Being so restless that it is hard to sit still 2 06/03/2025 11:59 AM EDT Jacek Juares MA Becoming easily annoyed or irritable 1 06/03/2025 11:59 AM EDT Jacek Juares MA Feeling afraid as if somethi ng awful might happen 1 06/03/2025 11:59 AM EDT Jacek Juares MA LEO-7 Total Score 13 06/03/2025 11:59 AM EDT Jacek Juares MA documented as of this encounter Progress Notes * ANGELICA Howe - 06/03/2025 11:00 AM EDT Subjective Patient ID: Juan Nava is a 30 y.o. male who presents for Follow-up. HPI PMH chronic OE, ADD Smokes MJ. No cigarettes. Occasional alcohol. Works from home. He and GF are trying for . Still w/ groin rash. Better w/ lotrisone. Wart on R hand, would like to take PO zinc which he did in past w/ good effect. Also with itchy patches of skin below ears, above ears. Scalp ok now, using PTC head and shoulders. Wants sti testing Declines flu shot Now established w/ psychiatry & started on abilify and adderall. Review of Systems Constitutional: Negative for fatigue, fever and unexpected weight change. HENT: Negative for sore throat. Respiratory: Negative for chest tightness, shortness of breath and wheezing. Gastrointestinal: Negative for constipation. Endocrine: Negative for polydipsia, polyphagia and polyuria. Genitourinary: Negative for difficulty urinating and dysuria. Musculoskeletal: Negative for back pain. Skin: Negative for rash. Neurological: Negative for headaches. Objective BP 120/80 (BP Location: Left arm, Patient Position: Sitting, BP Cuff Size: Adult) Pulse84 Temp 97.8 ??F (36.6 ??C) (Oral) Resp 20 Ht 5' 7 (1.702 m) Wt 154 lb 2 oz (69.9 kg) SpO2 99% BMI 24.14 kg/m?? Physical Exam Vitals reviewed. Constitutional: General: He is not in acute distress. Appearance: Normal appearance. He is not toxic-appearing. HENT: Head: Normocephalic and atraumatic. Right Ear: Tympanic membrane normal. Left Ear: Tympanic membrane normal. Ears: Comments: Mild scaling and erythema bilateral canals Eyes: General: No scleral icterus. Extraocular Movements: Extraocular movements intact. Pupils: Pupils are equal, round, and reactive to light. Cardiovascular: Rate and Rhythm: Normal rate and regular rhythm. Pulmonary: Effort: Pulmonary effort is normal. Skin: Comments: Wart on R hand; dry flaking skin at mustache Neurological: Mental Status: He is alert and oriented to person, place, and time. Cranial Nerves: No cranial nerve deficit. Psychiatric: Mood and Affect: Mood normal. Behavior: Behavior normal. Assessment/Plan Diagnoses and all orders for this visit: Wart of hand Comments: pt wants to try zinc again, used in past w/ good effect. also referred to derm team. Orders: - zinc sulfate (Zincate) 220 (50 Zn) MG capsule; Take 1 capsule (50 mg of elemental zinc) by mouth 3 times daily for 7 days. - Referral to Dermatology; Future Chronic otitis externa of right ear, unspecified type Comments: ENT referral again, clotrimazole liquid repeat Orders: - clotrimazole (Lotrimin) 1 % external solution; 4 drops into affected ear 4-5 times daily for 21 days - Referral to ENT; Future Rash Comments: lotrisone again, Derm referral for eval Orders: - Referral to Dermatology; Future - clotrimazole-betamethasone (Lotrisone) cream; Apply topically 2 times daily. Routine screening for STI (sexually transmitted infection) - HIV-1/2 Antigen and Antibodies, Fourth Generation, with Reflexes; Future - Syphilis Screen; Future - Chlamydia/N. Gonorrhoeae RNA, TMA, Urogenitial; Future Depression, unspecified depression type Comments: on meds via psych, will ask team to offer counseling Attention deficit hyperactivity disorder (ADHD), unspecified ADHD type Comments: on meds via psych documented in this encounter Plan of Treatment Scheduled Orders Name Type Priority Associated Diagnoses Orde r Schedule HIV-1/2 Antigen and Antibodies, Fourth Generation, with Reflexes Lab Routine Routine screening for STI (sexually transmitted infection) Expected: 06/03/2025 (Approximate), Expires: 06/03/2026 Syphilis Screen Lab Routine Routine screening for STI (sexually transmitted infection) Expected: 06/03/2025, Expires: 06/03/2026 Chlamydia/N. Gonorrhoeae RNA, TMA, Urogenitial Microbiology Routine Routine screening for STI (sexually transmitted infection) Expected: 06/03/2025 (Approximate), Expires: 06/03/2026 Scheduled Referrals Name Type Priority Associated Diagnoses Orde r Schedule Referral to Dermatology Outpatient Referral Routine Wart of hand Rash Expected: 06/03/2025 (Approximate), Expires: 06/03/2026 Referral to ENT Outpatient Referral Routine Chronic otitis externa of right ear, unspecified type Expected: 06/03/2025 (Approximate), Expires: 06/03/2026 Referral to Behavioral Health Outpatient Referral Routine Depression, unspecified depression type Attention deficit hyperactivity disorder (ADHD), unspecified ADHD type Expected: 06/03/2025 (Approximate), Expires: 12/01/2026 documented as of this encounter Visit Diagnoses Diagnosis Wart of hand- Primary Chronic otitis externa of right ear, unspecified type Rash Rash and other nonspecific skin eruption Routine screening for STI (sexually transmitted infection) Screening examination for venereal disease Depression, unspecified depression type Attention deficit hyperactivity disorder (ADHD), unspecified ADHD type documented in this encounter Additional Health Concerns Assessment Noted Time PHQ-9 Depression Total Score: 10 025 11:58 AM EDT documented as of this encounter Care Teams Can Closing Machine Tender Relationship Specialty Start Date End Date Janie Benedict ANP [address] [place] [id number] PCP - General Family Medicine 08/08/20 documented as of this encounter
--- OUTSIDE RECORDS SUMMARY | 2025-06-03 16:49 | XMS_ITS | Clinical Summary ---
Author Organization [employer] Address [address] [facility] [address] [place] [address] Care Team Providers Care Head Orthopedic Team Physician Name Role Phone Jak Janie DOMINGUEZ Primary Care Provider [phone] Allergies No known active allergies Medications hydrocortisone 2.5 % creamIndicatio ns:Rash APLIQUE CAPA PREM EL ROSA ELENA AFECTADA DOS VECES AL D A 30 g 10/19/19 23 Active naproxen (Naprosyn) 500 MG tablet Take 1 tablet (500 mg) by mouth if needed in the morning and at bedtime for mild pain. Take with food 50 tablet 02/17/20 24 Active clotrimazole (Lotrimin) 1 % external solutionIndica tions:Chronic otitis externa of right ear, unspecified type 4 drops into affected ear 4-5 times daily for 21 days 15 mL 06/03/20 25 Active amphetamine-de xtroamphetamin e XR (Adderall XR) 20 MG 24 hr capsule Take 20 mg by mouth in the morning. 05/20/20 25 Active ARIPiprazole (Abilify) 5 MG tablet Take 5 mg by mouth Once per day. 05/20/20 25 Active zinc sulfate (Zincate) 220 (50 Zn) MG capsuleIndicat ions:Wart of hand Take 1 capsule (50 mg of elemental zinc) by mouth 3 times daily for 7 days. 21 capsule 06/03/20 25 025 Active clotrimazole-b etamethasone (Lotrisone) creamIndicatio ns:Rash Apply topically 2 times daily. 45 g 2 06/03/20 25 Active Fluocinolone Acetonide Scalp 0.01 % oilIndications :Seborrheic dermatitis APPLY A THIN LAYER TOPICALLY TO DAMP SCALP, MASSAGE WELL + COVER FOR 4HRS/OVERNIGHT THEN WASH OFF 118.28 mL 10/12/19 23 025 Discontinued(T herapy completed) Neomycin-Polym yxin-HC 1 % solution Administer 3 drops into affected ear(s) 4 times daily. 10 mL 02/17/20 24 025 Discontinued(T herapy completed) clotrimazole (Lotrimin) 1 % creamIndicatio ns:Tinea cruris APPLY BY TOPICAL ROUTE 2 TIMES EVERY DAY FOR 4 WEEKS TO THE AFFECTED AND SURROUNDING AREAS OF SKIN 60 g 1 09/11/19 25 025 Discontinued(I neffective) clotrimazole (Lotrimin) 1 % external solutionIndica tions:Chronic otitis externa of right ear, unspecified type 4 drops into affected ear 4-5 times daily for 21 days 15 mL 09/25/19 25 025 Discontinued(R eorder (will not trigger notification to Pharmacy)) fluconazole (Diflucan) 150 MG tabletIndicati ons:Chronic otitis externa of right ear, unspecified type,Tinea cruris Take 1 pill once per week for 4 weeks 4 tablet 09/25/19 25 025 Discontinued(T herapy completed) clotrimazole-b etamethasone (Lotrisone) cream Apply topically 2 times daily. 02/23/20 22 025 Discontinued(R eorder (will not trigger notification to Pharmacy)) Active Problems Problem Noted Date Diagnosed Date Attention deficit hyperactivity disorder (ADHD) 06/03/2025 Acute pain of left shoulder 02/17/2024 Assessment [...] (11/14/2022 2:01 PM EST): Sent referral to [facility] for ADHD RO F/up with PCP Testicular [...] Encounters Date Type Department Care Team Description 06/03/2025 11:00 AM EDT Office Visit [facility] [address] [place] [phone] Janie Benedict ANP Wart of hand (Primary Dx); Chronic otitis externa of right ear, unspecified type; Rash; Routine screening for STI (sexually transmitted infection); Depression, unspecified depression type; Attention deficit hyperactivity disorder (ADHD), unspecified ADHD type 06/03/2025 Travel 06/01/2025 Telephone [facility] [address] [place] [phone] Janie Benedict ANP chart prep from Last 3 Months Immunizations Immunization Administration Dates Next Due DTaP 03/17/2008, 1,06/24/1997,09/16,1996,1996 [...] Mass Index 24.14 06/03/2025 11:04 AM EDT Plan of Treatment Health Maintenance Due Date Last Done Comments COVID-19 Vaccine ( season) 2025 Influenza Vaccine (#1) 2025 7, 09/05/2015, 08/23/2014, Additional history exists Depression Monitoring 12/01/2025 06/03/2025, 025 Alcohol/Substance Use Screening 06/03/2026 06/03/2025 Disability Screening 06/03/2026 06/03/2025 Family Planning (PISQ) 06/03/2026 06/03/2025 SDOH Screening 06/03/2026 06/03/2025 Tobacco Screening 06/03/2026 06/03/2025 DTaP/Tdap/Td Vaccines (9 - Td or Tdap) [...] on patient's age to complete this topic Meningococcal B Vaccine Aged Out No l onger eligible based on patient's age to complete this topic Pneumococcal Vaccine: Pediatrics (0 to 5 Years) and At-Risk Patients (6 to 49) Years Aged Out No longer eligible based on [...] (sexually transmitted infection) from Last 3 Months or Most Recently Relevant to Health Maintenance Results * Hepatitis C Antibody with Reflex to HCV, RNA, Quantitative, Real-Time PCR (09/25/2024 10:49 AM EST) Hepatitis C Antibody Nonreactive Nonreactive [facility] Comment:Antibodies to HCV no t detected; does not exclude early acuteHCV infection. Blood Venous blood specimen / Unknown 09/25/2024 10:49 AM EST 09/25/2024 11:20 AM EST us Janie DOMINGUEZ LAB BLOOD ORDERABLES Final Resul t [facility] [address] [place] [phone] * HIV-1/2 Antigen and Antibodies, Fourth Generation, with Reflexes (09/25/2024 10:49 AM EST) HIV AB/AG Nonreactive Nonreactive [facility] Comment:HIV-1 p24 Ag and/or HIV-1/HIV-2 Ab not detected.A test result that is nonreactive does not exclude thepossibility of exposure to or infection with HIV-1 and/orHIV-2. Nonreactive results in this assay for individualswith prior exposure to HIV-1 and/or HIV-2 may be due toantigen and antibody levels that are below the limit ofdetection of this assay.The Aligo HIV Ag/Ab Combo assay result andsupplemental assay results should be interpreted inconjunction with the patient's clinical presentation,history and other laboratory results. If the results areinconsistent with clinical evidence, additional testing issuggested to confirm the result. Blood Venous blood specimen / Unknown 09/25/2024 10:49 AM EST 09/25/2024 11:20 AM EST us Janie DOMINGUEZ LAB BLOOD ORDERABLES Final Resul t [facility] [address] [place] [address] [phone] from Last 3 Months or Most Recently Relevant to Health Maintenance Insurance [employer] [facility] OPEN ACCESS Care Teams Head Orthopedic Team Physician Relationship Specialty Start Date End Date Janie Benedict ANP [address] [place] [phone] PCP - General Family Medicine 08/08/20
--- OUTSIDE RECORDS SUMMARY | 2025-06-03 16:49 | XMS_ITS | Encounter Summary ---
Author Organization [employer] Address [address] [facility] [address] [place] [address] Care Team Providers Care Photographer Name Role Phone Janie Benedict Primary Care Provider [phone] Reason for Visit * Reason Comments Med Refill Encounter Details Date Type Department Care Team ([facility] st Contact Info) Description 10/17/2022 Refill [facility] [address] [place], [place] [phone] Higinio Byrne MD [address] [place] [address] Social History Tobacco Use Types Packs/Day Years Used Date Smoking Tobacco: Never Assessed Sex and Gender Information Value Date Recorded Sex Assigned at Male 07/09/2022 10:21 AM EDT Legal Sex Male 10:21 AM EDT Gender Identity Male 07/09/2022 10:21 AM EDT Sexual Orientation Straight 07/09/2022 10 :21 AM EDT documented as of this encounter Plan of Treatment Not on file documented as of this encounter Visit Diagnoses Not on filedocumented in this encounter Care Teams Photographer Relationship Specialty Start Date End Date Janie Benedict ANP [address] [place], [place] [phone] PCP - General Family Medicine 08/08/20 documented as of this encounter
--- OUTSIDE RECORDS SUMMARY | 2025-06-03 16:49 | XMS_ITS | Encounter Summary ---
Author Organization [employer] Address [address] [facility] [address] [place] [address] Care Team Providers Care Dental Officer Name Role Phone Janie Benedict Primary Care Provider [phone] Reason for Visit * Reason Onset Date Comments Appointment Request 09/15/2024 Encounter Details Date Type Department Care Team ([facility] Contact Info) Description 09/15/2024 Telephone [facility] [address] [place], [place] [phone] Janie Benedict ANP [address] [place] [address] Appointment Request Social History Tobacco Use Types [...] requesting schedule appt for DX: Ear Infection. [phone] documented in this encounter Plan of Treatment Not on file documented as of this encounter Visit Diagnoses Not on filedocumented in this encounter Additional Health Concerns Assessment Noted Time PHQ-9 Depression Total Score: 0 03/13/20 24 3:16 PM EDT documented as of this encounter Care Teams Dental Officer Relationship Specialty Start Date End Date Janie Benedict ANP [address] [place] [phone] PCP - General Family Medicine 08/08/20 documented as of this encounter
--- OUTSIDE RECORDS SUMMARY | 2025-06-03 16:49 | XMS_ITS | Encounter Summary ---
Author Organization [employer] Address [address] [facility] [address] 7[address] [place] [address] Care Team Providers Care Catering Director Name Role Phone Jak Janie DOMINGUEZ Primary Care Provider [phone] Encounter Details Date Type Department Care Team (Latest Contact Info) Description 06/03/2025 Travel Social History Tobacco Use Types Packs/Day [...] AM EDT documented as of this encounter Functional Status * Over the [...] 11:58 AM EDT Jacek Juares [place] * Trouble falling or staying asleep, or sleeping too much Answer Date of Assessment Author Nearly every day 06/03/2025 11:58 AM EDT Jacek Juares MA * Feeling tired or having little energy Answer Date of Assessment Author Several days 06/03/2025 11:58 AM EDT Jacek Juares MA * Poor appetite or overeating Answer Date of Assessment Author Several days 06/03/2025 11:58 AM EDT Jacek Juares MA * Feeling bad about yourself - or that you are a failure or have let yourself or your family down Answer Date of Assessment Author Several days 06/03/2025 11:58 AM EDT Jacek Juares MA * Trouble concentrating on things, such as reading the newspaper or watching television Answer Date of Assessment Author Several days 06/03/2025 11:58 AM EDT Jacek Juares MA * Moving or speaking so slowly that other people could have noticed? Or the opposite - being so fidgety or restless that you have been moving around a lot more than usual. Answer Date of Assessment Author Not at all 06/03/2025 11:58 AM Jacek Viramontes MA * Thoughts that you would be better off or hurting yourself in some way Answer Date of Assessment Author Several days 06/03/2025 11:58 AM BRENDAT Jacek Juares MA * Patient Health Questionnaire-9 Score Answer Date of Assessment Author 10 06/03/2025 11:58 AM BRENDAT Jacek Juares MA * How difficult have these problems made it for you to do your work, take care of things at home, or get along with other people? Answer Date of Assessment Author Somewhat difficult 06/03/2025 11:58 AM EDT Jacek Seo MA * Over the last 2 weeks, how often have you been bothered by any of the following problems? Question Answer Date of Assessment Author Feeling nervous, anxious, or on edge 2 06/03/2025 11:59 AM EDT Jacek Juares MA Not being able to stop or co ntrol worrying 1 06/03/2025 11:59 AM Jacek Viramontes MA Worrying too much about diff erent things 3 06/03/2025 11:59 AM Jacek Viramontes MA Trouble relaxing 3 06/03/2025 11:59 AM Jacek Viramontes MA Being so restless that it is hard to sit still 2 06/03/2025 11:59 AM Jacek Viramontes MA Becoming easily annoyed or irritable 1 06/03/2025 11:59 AM BRENDAT Jacek Juares MA Feeling afraid as if somethi ng awful might happen 1 06/03/2025 11:59 AM Jacek Viramontes MA LEO-7 Total Score 13 06/03/2025 11:59 AM Jacek Viramontes MA documented as of this encounter Plan of Treatment Not on file documented as of this encounter Visit Diagnoses Not on filedocumented in this encounter Additional Health Concerns Assessment Noted Time PHQ-9 Depression Total Score: 10 025 11:58 AM EDT documented as of this encounter Care Teams Catering Director Relationship Specialty Start Date End Date Janie Benedict ANP [address] [place] [address] PCP - General Family Medicine 08/08/20 documented as of this encounter
--- OUTSIDE RECORDS SUMMARY | 2025-06-03 16:49 | XMS_ITS | Encounter Summary ---
Author Organization [employer] Address [address] [facility] [address] 7[address] [place] [address] Care Team Providers Care Nurse General Duty Name Role Phone Janie Benedict Primary Care Provider [phone] Reason for Visit * Reason Onset Date Comments chart prep 06/01/2025 Encounter Details Date Type Department Care Team ([facility] Contact Info) Description 06/01/2025 Telephone [facility] MEDICINE [address] [place] [address] Janie Benedict ANP [address] [place] [address] chart prep Social History Tobacco Use Types Packs/Day Years [...] encounter Miscellaneous Notes * Telephone Encounter - Jacek Juares MA - 06/01/2025 3:14 PM EDT Chart Prep Labs: done Images: done Referrals: complete Vaccines due: Covid and Flu Screenings: not applicable Overdue care gaps: SBIRT, SDOH, PHQ-9, LEO-7, Oral health screening, and Disability screen documented in this encounter Plan of Treatment Not on file documented as of this encounter Visit Diagnoses Not on filedocumented in this encounter Additional Health Concerns Assessment Noted Time PHQ-9 Depression Total Score: 0 03/13/20 24 3:16 PM EDT documented as of this encounter Care Teams Nurse General Duty Relationship Specialty Start Date End Date Janie Benedict ANP [address] [facility] [place] [address] PCP - General Family Medicine 08/08/20 documented as of this encounter
--- OUTSIDE RECORDS SUMMARY | 2025-06-03 16:49 | XMS_ITS | Encounter Summary ---
Author Organization [facility] Address [address] [facility] 7t [place] [address] Care Team Providers Care Associate Professor Of Engineering Name Role Phone Janie Benedict Primary Care Provider [phone] Reason for Visit * Reason Comments Med Refill Encounter Details Date Type Department Care Team ([facility] st Contact Info) Description 10/17/2022 Refill [facility] MEDICINE [address] [place] [address] Anastacio Mancera MD [address] [place] [address] Social History Tobacco Use Types Packs/Day Years [...] on filedocumented in this encounter Care Teams Associate Professor Of Engineering Relationship Specialty Start Date End Date Janie Benedict ANP [address] [place] [address] PCP - General Family Medicine 08/08/20 documented as of this encounter
--- OUTSIDE RECORDS SUMMARY | 2025-06-03 16:49 | XMS_ITS | Encounter Summary ---
Author Organization [employer] Address [address] [facility] [address] 7[address] [place] [address] Care Team Providers Care Light Equipment Operator Name Role Phone Janie Benedict Primary Care Provider [phone] Reason for Visit * Reason Onset Date Comments Appointment Request 06/19/2024 Encounter Details Date Type Department Care Team ([facility] Contact Info) Description 06/19/2024 Telephone [facility] MEDICINE [address] [place], [place] [phone] Janie Benedict ANP [address] [place] [address] Appointment Request Social History Tobacco Use Types [...] documented as of this encounter Care Teams Light Equipment Operator Relationship Specialty Start Date End Date Janie Benedict ANP [address] [place] [address] PCP - General Family Medicine 08/08/20 documented as of this encounter
--- OUTSIDE RECORDS SUMMARY | 2025-06-03 16:49 | XMS_ITS | Encounter Summary ---
Author Organization [employer] Address [address] [facility] 7t [place] [address] Care Team Providers Care Data Collection Associate Name Role Phone Janie Benedict Primary Care Provider [phone] Reason for Visit * Reason Onset Date Comments Nurse Triage 02/14/2024 Encounter Details Date Type Department Care Team ([facility] st Contact Info) Description 02/14/2024 Telephone [facility] MEDICINE [address] [place], [place] [phone] Janie Benedict ANP [address] [place] [address] Nurse Triage Social History Tobacco Use Types [...] documented as of this encounter Care Teams Data Collection Associate Relationship Specialty Start Date End Date Janie Benedict ANP [address] [place] [address] PCP - General Family Medicine 08/08/20 documented as of this encounter
--- OUTSIDE RECORDS SUMMARY | 2025-06-03 16:49 | XMS_ITS | Encounter Summary ---
Author Organization [employer] Address [address] [facility] [address] 7[address] [place] [address] Care Team Providers Care Hospital Insurance Clerk Name Role Phone Jak Janie DOMINGUEZ Primary Care Provider [phone] Encounter Details Date Type Department Care Team ([facility] st Contact Info) Description 10/01/2022 Orders Only [facility] MEDICINE [address] [place] [address] Madelaine Garland LPN Social History Tobacco Use Types Packs/Day Years [...] on file documented as of this encounter Procedures Procedure Name Priority Date/Time Associated Diagnosis Comments URINALYSIS, COMPLETE, WITH REFLEX TO CULTURE Routine 08/26/2023 2:33 AM EST HIV ANTIBODY/ANTIGEN ([facility]) Routine 05/24/2023 12:26 PM EDT documented in this encounter Results * (ABNORMAL) Urinalysis, Complete, with Reflex to Culture (08/26/2023 2:33 AM EST) Color Urine Yellow [facility] Appearance Urine Clear [facility] PH 6.0 5.0 - 9.0 [facility] Glucose Urine UA Negative Negative mg/dL [facility] Urine Blood Negative Negative [facility] Specific [place] - Urine >=1.030(H) 1.005 - 1.025 [facility] Urine Protein Negative Neg-Trace mg/dL [facility] Urine Ketones Trace Negative mg/dL [facility] Nitrite Urine Negative Negative [facility] Leukocyte Esterase Urine Negative Negative [facility] RBC Urine 0-2 0 - 2 /HPF [facility] Urine WBC 0-5 0 - 5 /HPF [facility] Urine Squamous Epithelial Cell 0-2 0 - 2 /HPF [facility] Urine Bacteria None Seen None Seen [facility] Hyaline Casts, Urine 0-2 0 - 2 /LPF [facility] 08/26/2023 2:33 AM EST 08/26/2023 2:38 AM EST Narrative [facility] - 08/26/2023 3:11 AM EST Urine, Clean Catch us Generic External Data Provider LAB URINE ORDERAB LES Final Result [facility] [address] [place] [address] [phone] * HIV Ab/Ag ([facility]) (05/24/2023 12:26 PM EDT) HIV AB/AG Nonreactive Nonreactive [facility] Comment:HIV-1 p24 Ag and/or HIV-1/HIV-2 Ab not detected.A test result that is nonreactive does not exclude thepossibility of exposure to or infection with HIV-1 and/orHIV-2. Nonreactive results in this assay for individualswith prior exposure to HIV-1 and/or HIV-2 may be due toantigen and antibody levels that are below the limit ofdetection of this assay.The [employer] HIV Ag/Ab Combo assay result andsupplemental assay results should be interpreted inconjunction with the patient's clinical presentation,history and other laboratory results. If the results areinconsistent with clinical evidence, additional testing issuggested to confirm the result. 05/24/2023 12:2 6 PM EDT 05/24/2023 2:52 PM EDT us Owen Glynn MD LAB BLOOD ORDERABLES Final Resul t [facility] [address] [place] [address] [phone] documented in this encounter Visit Diagnoses Not on filedocumented in this encounter Care Teams Hospital Insurance Clerk Relationship Specialty Start Date End Date Janie Benedict ANP [address] [place] [id number] PCP - General Family Medicine 08/08/20 documented as of this encounter
[2025-06-04 08:11] LABS: Syphilis Screen Nonreactive (Nonreactive)
[2025-06-04 09:08] LABS: HIV Num 1 0.05 S/CO (0.00-0.99); ~HepC Num1 0.11 S/CO (0.00-0.79); ~Hepatitis C Antibody Nonreactive (Nonreactive)
== END 2025-06-03 11:55 | disposition home or self-care (01) ==
LOC: HO.HHCL 11:54
PROVIDERS: PCP Nurse Practitioner Primary Care; Visit Provider Nurse Practitioner Primary Care
DX: Z11.3 Encounter for screening for infections with a predominantly sexual mode of transmission (principal); Z11.59 Encounter for screening for other viral diseases; Z11.4 Encounter for screening for human immunodeficiency virus [HIV]
CPT/HCPCS: 36415; 86780; 86803; 87389

== ENCOUNTER 2025-07-19 16:36 | Outpatient (REF) | payer OTHER, SELFPAY ==
--- OUTSIDE RECORDS SUMMARY | 2025-07-19 14:00 | XMS_ITS | Encounter Summary ---
Author Organization [employer] Address [address] [facility] [address] 7[address] [place] [address] Care Team Providers Care Color Consultant Name Role Phone Jak Janie DOMINGUEZ Primary Care Provider [phone] Encounter Details Date Type Department Care Team ([facility] Contact Info) Description 07/19/2025 2:00 PM EST Office Visit [facility] [address] [place] [address] Marielle Coates MD [address] [place] [address] Balanitis; Genital lesion, male Social History Tobacco [...] definitive diagnosis. This note was drafted using [employer] (RecruitTalk) technology. The patient/patient's guardian has been informed [...] documented as of this encounter Care Teams Color Consultant Relationship Specialty Start Date End Date Janie Benedict ANP [address] [place] [address] PCP - General Family Medicine 08/08/20 documented as of this encounter
--- OUTSIDE RECORDS SUMMARY | 2025-07-19 18:04 | XMS_ITS | Encounter Summary ---
Author Organization [employer] Address [address] [facility] [address] [place] [address] Care Team Providers Care Jig Hand Name Role Phone Janie Benedict Primary Care Provider [phone] Reason for Visit * Reason Onset Date Comments Nurse Triage 02/14/2024 Encounter Details Date Type Department Care Team ([facility] st Contact Info) Description 02/14/2024 Telephone [facility] MEDICINE [address] [place], [place] [phone] Janie Benedict ANP [address] [place] [address] Nurse Triage Social History Tobacco Use Types [...] documented as of this encounter Care Teams Jig Hand Relationship Specialty Start Date End Date Janie Benedict ANP [address] [place] [phone] PCP - General Family Medicine 08/08/20 documented as of this encounter
--- OUTSIDE RECORDS SUMMARY | 2025-07-19 18:04 | XMS_ITS | Encounter Summary ---
Author Organization [employer] [facility] Address [address] [facility] 7t [place] [address] Care Team Providers Care Male Model Name Role Phone Janie Benedict Primary Care Provider [phone] Reason for Visit * Reason Comments Med Refill Encounter Details Date Type Department Care Team ([facility] st Contact Info) Description 10/17/2022 Refill [facility] MEDICINE [address] [place] [address] Anastacio Mancera MD [address] [place] [address] Social History Tobacco Use Types Packs/Day Years [...] on filedocumented in this encounter Care Teams Male Model Relationship Specialty Start Date End Date Janie Benedict ANP [address] [place] [address] PCP - General Family Medicine 08/08/20 documented as of this encounter
--- OUTSIDE RECORDS SUMMARY | 2025-07-19 18:04 | XMS_ITS | Encounter Summary ---
Author Organization [employer] Address [address] [facility] 7t [place] [address] Care Team Providers Care Senior Commissary Agent Name Role Phone Janie Benedict Primary Care Provider [phone] Reason for Visit * Reason Comments Med Refill Encounter Details Date Type Department Care Team ([facility] st Contact Info) Description 10/17/2022 Refill [facility] [address] [place], [place] [phone] Higinio Byrne MD [address] [place] [address] Social History Tobacco Use Types Packs/Day Years [...] on filedocumented in this encounter Care Teams Senior Commissary Agent Relationship Specialty Start Date End Date Janie Benedict ANP [address] [place], [place] [phone] PCP - General Family Medicine 08/08/20 documented as of this encounter
--- OUTSIDE RECORDS SUMMARY | 2025-07-19 18:04 | XMS_ITS | Clinical Summary ---
Author Organization [employer] Address [address] [facility] 7t [place] [address] Care Team Providers Care Paperhanger Assistant Name Role Phone Jak Janie DOMINGUEZ Primary Care Provider [phone] Allergies No known active allergies Medications * This document contains information received from the source organization and may not represent a complete record from that organization. hydrocortisone 2.5 % creamIndications :Rash APLIQUE CAPA PREM EL ROSA ELENA AFECTADA DOS VECES AL D A 30 g 3 Active naproxen (Naprosyn) 500 MG tablet Take 1 tablet (500 mg) by mouth if needed in the morning and at bedtime for mild pain. Take with food 50 tablet 4 Active clotrimazole (Lotrimin) 1 % external solutionIndicati ons:Chronic otitis externa of right ear, unspecified type 4 drops into affected ear 4-5 times daily for 21 days 15 mL 5 Active amphetamine-dext roamphetamine XR (Adderall XR) 20 MG 24 hr capsule Take 20 mg by mouth in the morning. 5 Active ARIPiprazole (Abilify) 5 MG tablet Take 5 mg by mouth Once per day. 5 Active clotrimazole-bet amethasone (Lotrisone) creamIndications :Rash Apply topically 2 times daily. 45 g 2 5 Active clotrimazole (Lotrimin) 1 % creamIndications :Balanitis Use BID on affected area for 2 weeks 30 g 1 5 Active Active Problems Problem Noted Date Diagnosed Date Balanitis 07/19/2025 Assessment & Plan (07/19/2025 4:24 PM EST): Hygiene counseling done I will prescribe clotrimazole BID for 2 weeks Genital lesion, male 07/19/2025 Assessment & Plan (07/19/2025 4:25 PM EST): I will test for herpes patient will be contacted with results Attention deficit hyperactivity disorder (ADHD) 06/03/2025 Acute [...] (11/14/2022 2:01 PM EST): Sent referral to [facility] for ADHD RO F/up with PCP Testicular [...] anemia F/up with PCP Acne 10/09/2011 Encounters * This document contains information received from the source organization and may not represent a complete record from that organization. Date Type Department Care Team Description 07/19/2025 2:00 PM EST Office Visit [facility] [address] [place] [id number] Marielle Coates MD Balanitis; Genital lesion, male 07/19/2025 Travel 06/07/2025 Results Follow-Up [address] [address] Janie Benedict ANP Hepatitis C Antibody with Reflex to HCV, RNA, Quantitative, Real-Time PCR 06/07/2025 Results Follow-Up [address] [address] Janie Benedict ANP HIV-1/2 Antigen and Antibodies, Fourth Generation, with Reflexes, Syphilis Screen 06/03/2025 11:00 AM EDT Office Visit [address] [address] Janie Benedict ANP Wart of hand (Primary Dx); Chronic otitis externa of right ear, unspecified type; Rash; Routine screening for STI (sexually transmitted infection); Depression, unspecified depression type; Attention deficit hyperactivity disorder (ADHD), unspecified ADHD type 06/03/2025 Orders Only [address] [address] Janie Benedict ANP 06/03/2025 Travel 06/01/[address] [address] Janie Benedict ANP chart prep from Last [...] your housing situation today? I have wilmer torsten 06/03/[address] you li [...] Mass Index 25 07/19/2025 1:46 PM EST Plan of Treatment Health Maintenance Due Date [...] Completed 01/16/2023, 07/26/2010, 03/27/2008 HIV Screening Completed 06/03/2025, 09/09, 03/13/2024, Additional history exists Hepatitis C Screening Completed 06/03/2025 , 09/25/2024, 03/13/2024, Additional history exists HIB Vaccines Aged Out [...] W/REFL TO HCV RNA, QN, PCR Routine 06/03/2025 11:58 AM EDT SYPHILIS SCREEN Routine 06/03/2025 11:58 AM EDT Routine screening for STI (sexually transmitted infection) HIV 1/2 ANTIGEN/ANTIBODY, FOURTH GENERATION W/RFL Routine 06/03/2025 11:58 AM EDT Routine screening for STI (sexually transmitted infection) from Last 3 Months Results * Syphilis Screen (06/03/2025 11:58 AM EDT) [facility] Syphilis Screen Nonreactive Nonreactive [facility] Blood 06/03/2025 11:5 8 AM EDT 06/03/2025 1:06 PM EDT Janie Benedict [facility] LAB BLOOD ORDERABLES Final Resul t Performing Organization Address [facility] Co de Phone Number [facility] [address] [place] [phone] * Hepatitis C Antibody with Reflex to HCV, RNA, Quantitative, Real-Time PCR (06/03/2025 11:58 AM EDT) [facility] Hepatitis C Antibody Nonreactive Nonreactive [facility] Comment:Antibodies to HCV no t detected; does not exclude early acuteHCV infection. 06/03/2025 11:5 8 AM EDT 06/03/2025 1:06 PM EDT Janie Benedict [facility] LAB BLOOD ORDERABLES Final Resul t Performing Organization Address [facility] de Phone Number [facility] [address] [place] [phone] * HIV-1/2 Antigen and Antibodies, Fourth Generation, with Reflexes (06/03/2025 11:58 AM EDT) [facility] HIV AB/AG Nonreactive Nonreactive [facility] Comment:HIV-1 p24 Ag and/or HIV-1/HIV-2 Ab not detected.A test result that is nonreactive does not exclude thepossibility of exposure to or infection with HIV-1 and/orHIV-2. Nonreactive results in this assay for individualswith prior exposure to HIV-1 and/or HIV-2 may be due toantigen and antibody levels that are below the limit ofdetection of this assay.The [employer] HIV Ag/Ab Combo assay result andsupplemental assay results should be interpreted inconjunction with the patient's clinical presentation,history and other laboratory results. If the results areinconsistent with clinical evidence, additional testing issuggested to confirm the result. Blood Venous blood specimen / Unknown 06/03/2025 11:58 AM EDT 06/03/2025 1:06 PM EDT [facility] LAB BLOOD ORDERABLES Final Resul t [facility] [address] [place] [address] [phone] from Last 3 Months Insurance N PARTIAL [facility] [address] Care Teams Paperhanger Assistant Relationship Specialty Start Date End Date Janie Benedict ANP [address] [place] [phone] PCP - General Family Medicine 08/08/20
--- OUTSIDE RECORDS SUMMARY | 2025-07-19 18:04 | XMS_ITS | Encounter Summary ---
Author Organization [employer] Address [address] [facility] [address] 7[address] [place] [address] Care Team Providers Care Safety Consultant Name Role Phone Jak Janie DOMINGUEZ Primary Care Provider [phone] Encounter Details Date Type Department Care Team ([facility] st Contact Info) Description 10/01/2022 Orders Only [facility] MED[facility]INE [address] [place] [address] Madelaine Garland LPN Social History Tobacco Use [...] Routine 08/26/2023 2:33 AM EST HIV ANTIBODY/ANTIGEN ([facility]) Routine 05/24/2023 12:26 PM EDT documented in this encounter Results * (ABNORMAL) Urinalysis, Complete, with Reflex to Culture (08/26/2023 2:33 AM EST) Color Urine Yellow [facility] Appearance Urine Clear [facility] PH 6.0 5.0 - 9.0 [facility] Glucose Urine UA Negative Negative mg/dL [facility] Urine Blood Negative Negative [facility] Specific [place] - Urine >=1.030(H) 1.005 - 1.025 [facility] Urine Protein Negative Neg-Trace mg/dL [facility] Urine Ketones Trace Negative mg/dL [facility] Nitrite Urine Negative Negative [facility] Leukocyte Esterase Urine Negative Negative [facility] RBC Urine 0-2 0 - 2 /HPF [facility] Urine WBC 0-5 0 - 5 /HPF [facility] Urine Squamous Epithelial Cell 0-2 0 - 2 /HPF [facility] Urine Bacteria None Seen None Seen [facility] Hyaline Casts, Urine 0-2 0 - 2 /LPF [facility] 08/26/2023 2:33 AM EST 08/26/2023 2:38 AM EST Narrative [facility] - 08/26/2023 3:11 AM EST Urine, Clean Catch us Generic External Data Provider LAB URINE ORDERAB LES Final Result [facility] [address] [place] [phone] [phone] * HIV Ab/Ag ([facility]) (05/24/2023 12:26 PM EDT) HIV AB/AG Nonreactive Nonreactive [facility] Comment:HIV-1 p24 Ag and/or HIV-1/HIV-2 Ab not detected.A test result that is nonreactive does not exclude thepossibility of exposure to or infection with HIV-1 and/orHIV-2. Nonreactive results in this assay for individualswith prior exposure to HIV-1 and/or HIV-2 may be due toantigen and antibody levels that are below the limit ofdetection of this assay.The [employer] HIV Ag/Ab Combo assay result andsupplemental assay results should be interpreted inconjunction with the patient's clinical presentation,history and other laboratory results. If the results areinconsistent with clinical evidence, additional testing issuggested to confirm the result. 05/24/2023 12:2 6 PM EDT 05/24/2023 2:52 PM EDT us Owen Glynn MD LAB BLOOD ORDERABLES Final Resul t [facility] [address] [place] [address] [phone] documented in this encounter Visit Diagnoses Not on filedocumented in this encounter Care Teams Safety Consultant Relationship Specialty Start Date End Date Janie Benedict ANP [address] [place] [phone] PCP - General Family Medicine 08/08/20 documented as of this encounter
--- OUTSIDE RECORDS SUMMARY | 2025-07-19 18:04 | XMS_ITS | Encounter Summary ---
Author Organization [employer] Address [address] [facility] [address] [place] [address] Care Team Providers Care Event Lighting Specialist Name Role Phone Janie Benedict Primary Care Provider [phone] Encounter Details Date Type Department Care Team ([facility] Contact Info) Description 06/07/2025 Results Follow-Up [facility]INE [address] [place] [address] Janie Benedict ANP [address] [place] [address] HIV-1/2 Antigen and Antibodies, Fourth Generation, with Reflexes, Syphilis Screen Social History Tobacco Use Types Packs/Day Years [...] documented as of this encounter Care Teams Event Lighting Specialist Relationship Specialty Start Date End Date Janie Benedict ANP [address] [place] [address] PCP - General Family Medicine 08/08/20 documented as of this encounter
--- OUTSIDE RECORDS SUMMARY | 2025-07-19 18:04 | XMS_ITS | Encounter Summary ---
Author Organization [employer] Address [address] [facility] [address] 7t [place] [address] Care Team Providers Care Host Name Role Phone Jak Janie DOMINGUEZ Primary Care Provider [phone] Encounter Details Date Type Department Care Team (Latest Contact Info) Description 07/19/2025 Travel Social History Tobacco Use Types Packs/Day [...] documented as of this encounter Care Teams Host Relationship Specialty Start Date End Date Janie Benedict ANP [address] [place] [phone] PCP - General Family Medicine 08/08/20 documented as of this encounter
--- OUTSIDE RECORDS SUMMARY | 2025-07-19 18:04 | XMS_ITS | Encounter Summary ---
Author Organization [employer] Address [address] [facility] [address] 7[address] [place] [address] Care Team Providers Care Cover Making Machine Operator Name Role Phone Janie Benedict Primary Care Provider Reason for Visit * Reason Onset Date Comments Appointment Request 09/15/2024 Encounter Details Date Type Department Care Team ([facility] Contact Info) Description 09/15/2024 Telephone [facility] [address] [place], [place] [phone] Janie Benedict ANP [address] [place] [address] Appointment Request Social History Tobacco Use Types [...] requesting schedule appt for DX: Ear Infection. [id number] documented in this encounter Plan of Treatment Not on file documented as of this encounter Visit Diagnoses Not on filedocumented in this encounter Additional Health Concerns Assessment Noted Time PHQ-9 Depression Total Score: 0 03/13/20 24 3:16 PM EDT documented as of this encounter Care Teams Cover Making Machine Operator Relationship Specialty Start Date End Date Janie Benedict ANP [address] [place] [phone] PCP - General Family Medicine 08/08/20 documented as of this encounter
--- OUTSIDE RECORDS SUMMARY | 2025-07-19 18:04 | XMS_ITS | Encounter Summary ---
Author Organization [employer] Address [address] [facility] [address] 7t [place] [address] Care Team Providers Care Patient Care Technician Name Role Phone Janie Benedict Primary Care Provider [phone] Encounter Details Date Type Department Care Team ([facility] st Contact Info) Description 06/07/2025 Results Follow-Up [facility] MEDICINE [address] [place] [address] Janie Benedict ANP [address] [place] [address] Hepatitis C Antibody with Reflex to HCV, RNA, Quantitative, Real-Time PCR Social History Tobacco Use Types Packs/Day Years [...] documented as of this encounter Care Teams Patient Care Technician Relationship Specialty Start Date End Date Janie Benedict ANP [address] [place] [address] PCP - General Family Medicine 08/08/20 documented as of this encounter
--- OUTSIDE RECORDS SUMMARY | 2025-07-19 18:04 | XMS_ITS | Encounter Summary ---
Author Organization [employer] Address [address] [facility] [address] 7[address] [place] [address] Care Team Providers Care Purchasing/Receiving Name Role Phone Janie Benedict Primary Care Provider [phone] Reason for Visit * Reason Onset Date Comments Appointment Request 06/19/2024 Encounter Details Date Type Department Care Team ([facility] [address] Contact Info) Description 06/19/2024 Telephone [facility] MEDICINE [address] [place], [place] [phone] Janie Benedict ANP [address] [place] [address] Appointment Request Social History Tobacco Use Types [...] documented as of this encounter Care Teams Purchasing/Receiving Relationship Specialty Start Date End Date Janie Benedict ANP [address] [place] [phone] PCP - General Family Medicine 08/08/20 documented as of this encounter
== END 2025-07-19 16:37 | disposition home or self-care (01) ==
LOC: HO.HHCLNP 16:36
PROVIDERS: Visit Provider Internal Medicine
DX: N50.89 Other specified disorders of the male genital organs (principal)
CPT/HCPCS: 36415; 87255

== ENCOUNTER 2025-07-21 20:43 | Emergency (ER) | payer OTHER, SELFPAY ==
--- OUTSIDE RECORDS SUMMARY | 2025-07-19 14:00 | XMS_ITS | Encounter Summary ---
Author Organization [employer] Address [address] [facility] [address] 7[address] [place] [address] Care Team Providers Care Data Integration Developer Name Role Phone Jak Janie DOMINGUEZ Primary Care Provider [phone] Encounter Details Date Type Department Care Team ([facility] Contact Info) Description 07/19/2025 2:00 PM EST Office Visit [facility] [address] [place] [address] Marielle Coates MD [address] [place] [address] Balanitis; Genital lesion, male Social History Tobacco Use Types Packs/Day Years [...] Sign Reading Time Taken Comments Blood Pressure 120/76 07/19/2025 1:46 PM EST Pulse 73 07/19/2025 1:46 PM EST Temperature 35.6 C (96.1 F) 07/19/2025 1:46 PM EST Respiratory Rate 20 07/19/2025 1:46 PM EST Oxygen Saturation 96% 07/19/2025 1:46 PM EST Inhaled Oxygen Concentration - - Weight 72.4 kg (159 lb 9.6 oz) 07/19/2025 1:46 P M EST Height 170.2 cm (5' 7 ) 07/19/2025 1:46 PM EST Body Mass Index 25 07/19/2025 1:46 PM EST documented in this encounter Progress Notes * Marielle Buckley MD - 07/19/2025 2:00 PM EST Images from the original note were not included. SUBJECTIVE: Juan Nava is a 30 y.o. year old male who presents for acute visit . Juan Nava, 30 years Genital Inflammation and Lesions - History of intermittent inflammation and irritation in genital area, with episodes occurring previously, including during incarceration - Occasional appearance of small bubbles or blisters that may rupture, releasing a small amount of liquid - Symptoms include itchiness and dryness, recurring approximately one to two weeks after discontinuing topical cream - Lesions described as pimples or bubbles, sometimes located on the foreskin and surrounding areas - Not circumcised - No discharge from penis, denies penile discharge - Previous episodes resolved spontaneously or with topical cream applied to the sides of the affected area - Prior emergency room visit for similar symptoms; no definitive diagnosis provided - Recent onset of current episode, ongoing for 2 days prior to encounter, with perceived worsening - History of multiple sexual partners, but currently sexually active with one person; prior STI testing reported as negative - Sweats heavily and takes multiple showers daily, attempts to keep area dry as advised by previousdoctor - No diabetes, denies history of diabetes Social History Social History Narrative Not on file Problem List[1] Acne Attention deficit Testicular lump Insomnia Tinea cruris Acute pain of left shoulder Chronic otitis externa of right ear Attention deficit hyperactivity disorder (ADHD) Balanitis Genital lesion, male Family History[2] Review of Systems Constitutional: Negative. HENT: Negative. Respiratory: Negative. Cardiovascular: Negative. Genitourinary: Positive for genital sores and penile swelling. Negative for decreased urine volume,difficulty urinating, dysuria, enuresis, flank pain, frequency, hematuria, penile discharge, penilepain, scrotal swelling, testicular pain and urgency. OBJECTIVE: Vitals: 07/19/25 1346 BP: 120/76 BP Location: Right arm Patient Position: Sitting BP Cuff Size: Adult Pulse: 73 Resp: 20 Temp: 96.1 ??F (35.6 ??C) TempSrc: Temporal SpO2: 96% Weight: 159 lb 9.6 oz (72.4 kg) Height: 5' 7 (1.702 m) Physical Exam Constitutional: Appearance: Normal appearance. Cardiovascular: Rate and Rhythm: Normal rate and regular rhythm. Pulmonary: Effort: Pulmonary effort is normal. Breath sounds: Normal breath sounds. Abdominal: General: Abdomen is flat. Palpations: Abdomen is soft. Genitourinary: Penis: Uncircumcised. Swelling and lesions present. Comments: cursted small lesions Neurological: Mental Status: He is alert. Follow Up: No follow-ups on file. 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 - Prescribed topical antifungal cream to be applied to affected area twice daily for two weeks. Advised to keep area clean and dry. Provided refill for medication. Will contact with further instructions upon test results. Genital lesion, male: - Genital lesions described as blisters and bubbles; differential includes herpes simplex virus. Herpes testing performed. - Collected sample for herpes testing. Advised to return immediately if new blisters develop for definitive diagnosis. This note was drafted using [employer]otSpot (BillShrink) technology. The patient/patient's guardian has been informed and has consented to the use of this technology: Yes [1] Patient Active Problem List Diagnosis Acne Attention deficit Testicular lump Insomnia Tinea cruris Acute pain of left shoulder Chronic otitis externa of right ear Attention deficit hyperactivity disorder (ADHD) Balanitis Genital lesion, male [2] No family history on file. [3] Current Outpatient Medications on File Prior to Visit Medication Sig Dispense Refill amphetamine-dextroamphetamine XR (Adderall XR) 20 MG 24 hr capsule Take 20 mg by mouth in the morning. ARIPiprazole (Abilify) 5 MG tablet Take 5 mg by mouth Once per day. clotrimazole (Lotrimin) 1 % external solution 4 drops into affected ear 4-5 times daily for 21 days15 mL 0 clotrimazole-betamethasone (Lotrisone) cream Apply topically 2 times daily. 45 g 2 hydrocortisone 2.5 % cream APLIQUE CAPA PREM EL ROSA ELENA AFECTADA DOS VECES AL D A 30 g 0 naproxen (Naprosyn) 500 MG tablet Take 1 tablet (500 mg) by mouth if needed in the morning and at bedtime for mild pain. Take with food 50 tablet 0 No current facility-administered medications on file prior to visit. documented in this encounter Miscellaneous Notes * Assessment & Plan Note - Marielle Buckley MD - 07/19/2025 4:25 PM EST Associated Problem(s): Genital lesion, male I will test for herpes patient will be contacted with results * Assessment & Plan Note - Marielle Buckley MD - 07/19/2025 4:24 PM EST Associated Problem(s): Balanitis Hygiene counseling done I will prescribe clotrimazole BID for 2 weeks documented in this encounter Plan of Treatment Scheduled Orders Name Type Priority Associated Diagnoses Orde r Schedule Herpes Simplex Virus Culture with Reflex Typing Microbiology Routine Genital lesion, male Expected: 07/19/2025, Expires: 07/19/2026 documented as of this encounter Visit Diagnoses Diagnosis Balanitis Balanoposthitis Genital lesion, male Other specified disorder of male genital organs documented in this encounter Additional Health Concerns Assessment Noted Time PHQ-9 Depression Total Score: 10 025 11:58 AM EDT documented as of this encounter Care Teams Data Integration Developer Relationship Specialty Start Date End Date Janie Benedict ANP [address] [place] [address] PCP - General Family Medicine 08/08/20 documented as of this encounter
[2025-07-21 20:48] VITALS: BP 138/80; PULSE 98; RESP 20; TEMP 36.6; O2SAT 100; BMI 25.1
--- NOTE | 2025-07-21 21:10 | PC.NURSE ---
Assumed care pt, presents with swelling to his penis x 2 days, pt stated that he had unprotected sex the other, went to urgent care to get tested still pending results. [id number], nad,
--- OUTSIDE RECORDS SUMMARY | 2025-07-21 21:14 | XMS_ITS | Clinical Summary ---
Author Organization [employer] Address [address] [facility] [address] 7[address] [place] [address] Care Team Providers Care Office Nurse Practitioner Name Role Phone Jak Janie DOMINGUEZ Primary Care Provider [phone] Allergies No known active allergies Medications * [...] (11/14/2022 2:01 PM EST): Sent referral to [facility] for ADHD RO F/up with PCP Testicular [...] Description 07/19/2025 2:00 PM EST Office Visit [facility] [address] [place] [phone] Marielle Coates MD Balanitis; Genital lesion, male 07/19/2025 Travel 06/07/2025 Results Follow-Up [address] [address] Janie Benedict ANP Hepatitis C Antibody with Reflex to HCV, RNA, Quantitative, Real-Time PCR 06/07/2025 Results Follow-Up [address] [address] Janie Benedict ANP HIV-1/2 Antigen and Antibodies, Fourth Generation, with Reflexes, Syphilis Screen 06/03/2025 11:00 AM EDT Office Visit [address] [address] Janie Benedict ANP Wart of hand (Primary Dx); Chronic otitis externa of right ear, unspecified type; Rash; Routine screening for STI (sexually transmitted infection); Depression, unspecified depression type; Attention deficit hyperactivity disorder (ADHD), unspecified ADHD type 06/03/2025 Orders Only [address] [address] Janie Benedict ANP 06/03/2025 Travel 06/01/[address] [address] Janie Benedict ANP chart prep from Last [...] * Syphilis Screen (06/03/2025 11:58 AM EDT) [facility] Syphilis Screen Nonreactive Nonreactive [facility] Blood 06/03/2025 11:5 8 AM EDT 06/03/2025 1:06 PM EDT Janie Benedict [facility] LAB BLOOD ORDERABLES Final Resul t Performing Organization Address [facility] Co de Phone Number [facility] [address] [place] [phone] * Hepatitis C Antibody with Reflex to HCV, RNA, Quantitative, Real-Time PCR (06/03/2025 11:58 AM EDT) [facility] Hepatitis C Antibody Nonreactive Nonreactive [facility] Comment:Antibodies to HCV no t detected; does not exclude early acuteHCV infection. 06/03/2025 11:5 8 AM EDT 06/03/2025 1:06 PM EDT Janie Benedict [facility] LAB BLOOD ORDERABLES Final Resul t Performing Organization Address [facility] de Phone Number [facility] [address] [place] [phone] * HIV-1/2 Antigen and Antibodies, Fourth Generation, with Reflexes (06/03/2025 11:58 AM EDT) [facility] HIV AB/AG Nonreactive Nonreactive [facility] Comment:HIV-1 p24 Ag and/or HIV-1/HIV-2 Ab not detected.A test result that is nonreactive does not exclude thepossibility of exposure to or infection with HIV-1 and/orHIV-2. Nonreactive results in this assay for individualswith prior exposure to HIV-1 and/or HIV-2 may be due toantigen and antibody levels that are below the limit ofdetection of this assay.The [employer] HIV Ag/Ab Combo assay result andsupplemental assay results should be interpreted inconjunction with the patient's clinical presentation,history and other laboratory results. If the results areinconsistent with clinical evidence, additional testing issuggested to confirm the result. Blood Venous blood specimen / Unknown 06/03/2025 11:58 AM EDT 06/03/2025 1:06 PM EDT [facility] LAB BLOOD ORDERABLES Final Resul t [facility] [address] [place] [address] [phone] from Last 3 Months Insurance N PARTIAL [facility] [address] Care Teams Office Nurse Practitioner Relationship Specialty Start Date End Date Janie Benedict ANP [address] [place] [phone] PCP - General Family Medicine 08/08/20
--- OUTSIDE RECORDS SUMMARY | 2025-07-21 21:14 | XMS_ITS | Encounter Summary ---
Author Organization [employer] Address [address] [facility] [address] [place] [address] Care Team Providers Care Continuous Washer Operator Name Role Phone Jak Janie DOMINGUEZ Primary Care Provider [phone] Encounter Details Date Type Department Care Team ([facility] st Contact Info) Description 10/01/2022 Orders Only [facility] MEDICINE [address] [place] [address] Madelaine Garland LPN Social History Tobacco Use [...] Routine 08/26/2023 2:33 AM EST HIV ANTIBODY/ANTIGEN ([facility]) Routine 05/24/2023 12:26 PM EDT documented in this encounter Results * (ABNORMAL) Urinalysis, Complete, with Reflex to Culture (08/26/2023 2:33 AM EST) Color Urine Yellow [facility] Appearance Urine Clear [facility] PH 6.0 5.0 - 9.0 [facility] Glucose Urine UA Negative Negative mg/dL [facility] Urine Blood Negative Negative [facility] Specific [place] - Urine >=1.030(H) 1.005 - 1.025 [facility] Urine Protein Negative Neg-Trace mg/dL [facility] Urine Ketones Trace Negative mg/dL [facility] Nitrite Urine Negative Negative [facility] Leukocyte Esterase Urine Negative Negative [facility] RBC Urine 0-2 0 - 2 /HPF [facility] Urine WBC 0-5 0 - 5 /HPF [facility] Urine Squamous Epithelial Cell 0-2 0 - 2 /HPF [facility] Urine Bacteria None Seen None Seen [facility] Hyaline Casts, Urine 0-2 0 - 2 /LPF [facility] 08/26/2023 2:33 AM EST 08/26/2023 2:38 AM EST Narrative [facility] - 08/26/2023 3:11 AM EST Urine, Clean Catch us Generic External Data Provider LAB URINE ORDERAB LES Final Result [facility] [address] [place] [phone] [phone] * HIV Ab/Ag ([facility]) (05/24/2023 12:26 PM EDT) HIV AB/AG Nonreactive Nonreactive [facility] Comment:HIV-1 p24 Ag and/or HIV-1/HIV-2 Ab not detected.A test result that is nonreactive does not exclude thepossibility of exposure to or infection with HIV-1 and/orHIV-2. Nonreactive results in this assay for individualswith prior exposure to HIV-1 and/or HIV-2 may be due toantigen and antibody levels that are below the limit ofdetection of this assay.[employer] HIV Ag/Ab Combo assay result andsupplemental assay results should be interpreted inconjunction with the patient's clinical presentation,history and other laboratory results. If the results areinconsistent with clinical evidence, additional testing issuggested to confirm the result. 05/24/2023 12:2 6 PM EDT 05/24/2023 2:52 PM EDT us Owen Glynn MD LAB BLOOD ORDERABLES Final Resul t [facility] [address] [place] [address] [phone] documented in this encounter Visit Diagnoses Not on filedocumented in this encounter Care Teams Continuous Washer Operator Relationship Specialty Start Date End Date Janie Benedict ANP [address] [place] [phone] PCP - General Family Medicine 08/08/20 documented as of this encounter
--- OUTSIDE RECORDS SUMMARY | 2025-07-21 21:14 | XMS_ITS | Encounter Summary ---
Author Organization [employer] Address [address] [facility] [address] [place] [address] Care Team Providers Care Armhole Sewer Name Role Phone Janie Benedict Primary Care Provider [phone] Encounter Details Date Type Department Care Team ([facility] Contact Info) Description 06/07/2025 Results Follow-Up [facility] MEDICINE [address] [place] [address] Janie Benedict ANP [address] [place] [address] Hepatitis C Antibody with Reflex to HCV, [...] documented as of this encounter Care Teams Armhole Sewer Relationship Specialty Start Date End Date Janie Benedict ANP [address] [place] [address] PCP - General Family Medicine 08/08/20 documented as of this encounter
--- OUTSIDE RECORDS SUMMARY | 2025-07-21 21:14 | XMS_ITS | Encounter Summary ---
Author Organization [employer] Address [address] [facility] [address] 7t [place] [address] Care Team Providers Care Multicut Line Operator Name Role Phone Janie Benedict Primary Care Provider [phone] Reason for Visit * Reason Onset Date Comments Appointment Request 09/15/2024 Encounter Details Date Type Department Care Team ([facility] Contact Info) Description 09/15/2024 Telephone [facility] [address] [place], [place] [phone] Janie Benedict ANP [address] [place] [address] Appointment Request Social History Tobacco Use Types [...] requesting schedule appt for DX: Ear Infection. [id number] documented in this encounter Plan of Treatment Not on file documented as of this encounter Visit Diagnoses Not on filedocumented in this encounter Additional Health Concerns Assessment Noted Time PHQ-9 Depression Total Score: 0 03/13/20 24 3:16 PM EDT documented as of this encounter Care Teams Multicut Line Operator Relationship Specialty Start Date End Date Janie Benedict ANP [address] [place] [phone] PCP - General Family Medicine 08/08/20 documented as of this encounter
--- OUTSIDE RECORDS SUMMARY | 2025-07-21 21:14 | XMS_ITS | Encounter Summary ---
Author Organization [employer] Address [address] [facility] [address] [place] [address] Care Team Providers Care Predictive Maintenance Technician Name Role Phone Janie Benedict Primary Care Provider [phone] Reason for Visit * Reason Onset Date Comments Nurse Triage 02/14/2024 Encounter Details Date Type Department Care Team ([facility] st Contact Info) Description 02/14/2024 Telephone [facility] MEDICINE [address] [place], [place] [phone] Janie Benedict ANP [address] [place] [address] Nurse Triage Social History Tobacco Use Types [...] documented as of this encounter Care Teams Predictive Maintenance Technician Relationship Specialty Start Date End Date Janie Benedict ANP [address] [place] [id number] PCP - General Family Medicine 08/08/20 documented as of this encounter
--- OUTSIDE RECORDS SUMMARY | 2025-07-21 21:14 | XMS_ITS | Encounter Summary ---
Author Organization [employer] Address [address] [facility] 7t [place] [address] Care Team Providers Care Compound Worker Name Role Phone Janie Benedict Primary Care Provider [phone] Reason for Visit * Reason Comments Med Refill Encounter Details Date Type Department Care Team ([facility] st Contact Info) Description 10/17/2022 Refill [facility]S [address] [place], [place] [phone] Higinio Byrne MD [address] [place] [address] Social History Tobacco Use Types Packs/Day Years [...] on filedocumented in this encounter Care Teams Compound Worker Relationship Specialty Start Date End Date Janie Benedict ANP [address] [place], [place] [phone] PCP - General Family Medicine 08/08/20 documented as of this encounter
--- OUTSIDE RECORDS SUMMARY | 2025-07-21 21:14 | XMS_ITS | Encounter Summary ---
Author Organization [employer] Address [address] [facility] [address] 7[address] [place] [address] Care Team Providers Care Buttonhole Tacker Name Role Phone Janie Benedict Primary Care Provider [phone] Reason for Visit * Reason Onset Date Comments Appointment Request 06/19/2024 Encounter Details Date Type Department Care Team ([facility] Contact Info) Description 06/19/2024 Telephone [facility] MEDICINE [address] [place], [place] [phone] Janie Benedict ANP 230 [place] [address] Appointment Request Social History Tobacco Use Types [...] documented as of this encounter Care Teams Buttonhole Tacker Relationship Specialty Start Date End Date Janie Benedict ANP [address] [place] [id number] PCP - General Family Medicine 08/08/20 documented as of this encounter
--- OUTSIDE RECORDS SUMMARY | 2025-07-21 21:14 | XMS_ITS | Encounter Summary ---
Author Organization [employer] [facility] Address [address] [facility] 7t [place] [address] Care Team Providers Care Carpenter Rough Name Role Phone Janie Benedict Primary Care Provider [phone] Reason for Visit * Reason Comments Med Refill Encounter Details Date Type Department Care Team ([facility] st Contact Info) Description 10/17/2022 Refill [facility] MEDICINE [address] [place] [address] Anastacio Mancera MD [address] [place] [address] Social History Tobacco Use Types Packs/Day Years [...] on filedocumented in this encounter Care Teams Carpenter Rough Relationship Specialty Start Date End Date Janie Benedict ANP [address] [place] [address] PCP - General Family Medicine 08/08/20 documented as of this encounter
--- OUTSIDE RECORDS SUMMARY | 2025-07-21 21:14 | XMS_ITS | Encounter Summary ---
Author Organization [employer] Address [address] [facility] [address] [place] [address] Care Team Providers Care Mixer Slagman Name Role Phone Janie Benedict Primary Care Provider [phone] Encounter Details Date Type Department Care Team ([facility] Contact Info) Description 06/07/2025 Results Follow-Up [facility] MEDICINE [address] [place] [address] Janie Benedict ANP [address] [place] [address] HIV-1/2 Antigen and Antibodies, Fourth Generation, with [...] documented as of this encounter Care Teams Mixer Slagman Relationship Specialty Start Date End Date Janie Benedict ANP [address] [place] [id number] PCP - General Family Medicine 08/08/20 documented as of this encounter
--- OUTSIDE RECORDS SUMMARY | 2025-07-21 21:14 | XMS_ITS | Encounter Summary ---
Author Organization [employer] Address [address] [facility] [address] 7[address] [place] [address] Care Team Providers Care Retail General Manager Name Role Phone Jak Jnaie DOMINGUEZ Primary Care Provider [phone] Encounter Details Date Type Department Care Team [...] documented as of this encounter Care Teams Retail General Manager Relationship Specialty Start Date End Date Janie Benedict ANP [address] [place] [id number] PCP - General Family Medicine 08/08/20 documented as of this encounter
--- NOTE | 2025-07-21 22:14 | ED.MALEGU ---
HPI - Male Genitourinary General Chief complaint: Urogenital-Male Stated complaint: Private Area Inflammed Time Seen by Provider: 07/21/25 21:48 Source: patient Mode of arrival: ambulatory Limitations: no limitations History of Present Illness ED Provider: Dr. Nazanin Tate HPI Narrative: patient comes to the emergency room complaining of penile pain. Patient states that 2 days ago, patient started noticing swelling just behind the glands area. Patient states that he is unable to fully retract the foreskin. Patient states that he has been is looks like it is circumcised but it is not. Patient states that he is able to urinate, denies any penile discharge. Patient states that he had couple of spots in the shaft of the penis. Patient states that yesterday he was tested for herpes and STDs in a health clinic. Patient does not have the results yet. Patient states that months ago he had the same kind of spots in his pain is, he was prescribed topical steroids and they disappeared. To patient's knowledge he has not had an STD. Patient Is sexually active. Patient denies testicular pain. Related Data Previous Rx's ?Medication ?Instructions ?Recorded lidocaine 3 %-hydrocortisone 0.5 % 1 appl [place] BID #1 ea 10/06/24 rectal kit, cream and wipes cyclobenzaprine 10 mg tablet 10 mg PO TID PRN muscle spasm #10 10/20/24 tabs ibuprofen 800 mg tablet 800 mg PO Q8H PRN pain #14 tabs 10/20/24 Allergies Allergy/AdvReac Type Severity Reaction Status Date / Time No Known Allergies Allergy Verified 07/21/25 20:50 Review of Systems Review of Systems: Constitutional : No Weight loss, No Fever, No Chills, No Night Sweats, No Fatigue, No Malaise ENT/Mouth : No Hearing loss, No Ear Pain, No Nasal Congestion, No Sinus Pain, No Hoarseness, No sore throat, No Rhinorrhea, No Swallowing Difficulty Eyes: No Eye Pain, No Swelling, No Redness, No Foreign Body, No Discharge, No Vision Changes Cardiovascular : No Chest Pain, No SOB, No Dyspnea on Exertion, No Orthopnea, No Edema, No Palpitations Respiratory : No Cough, No Sputum, No Wheezing, No Smoke Exposure, No Dyspnea Gastrointestinal : No Nausea, No Vomiting, No Diarrhea, No Constipation, No abdominal Pain, No Hematochezia, No Melena Genitourinary : Complaining of for skin swelling in the proximal part of the glands, painful to touch, denies penile discharge, No Dysuria, No Urinary Frequency, No Hematuria, No Urinary Incontinence, No Urgency, No Flank Pain, No Urinary Flow Changes, No Hesitancy Musculoskeletal : No joint pain, No Myalgias, No Joint Swelling Skin : No Skin Lesions, No rash Neuro : No Weakness, No Numbness, No Paresthesias, No Loss of Consciousness, No Dizziness, No Headache Psych : No Anxiety/Panic, No Depression, No SI/HI/AH/VH, No Social Issues, Heme/Lymph: No Bruising, No Bleeding,No Lymphadenopathy Endocrine : No Polyuria, No Polydipsia, No Temperature Intolerance PMF Past Medical History Medical History Patient denies significant medical history Family History Family History Other Patient denies medical problems Social History Social History Alcohol intake: current Alcohol intake frequency: 3 or more drinks per day Patient Tobacco Use Status: Never used Tobacco Advance Directives: No Advance Directives Information Provided: No Do you have a plan to hurt others: No Plan Current occupational status: employed 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 Oriented X3. No acute distress. Eyes: Pupils equal, round and reactive to light. ENT: Pharynx normal. Neck: Normal inspection. Neck supple. No lymph nodes noted. No crepitus CVS: Normal heart rate and rhythm. Pulses normal. Normal S1 and S2 Respiratory: No respiratory distress. Breath sounds normal. No Wheezing. No rales Abdomen: Soft and nontender. No rigidity. No distention. : Patient has mild paraphimosis, the foreskin is retracted and swollen, proximal to the glands. There is no testicular tenderness, no discoloration, no scrotum swelling Skin: Skin warm and dry. Normal skin color. Normal skin turgor. Extremities: No lower extremity edema. No Lacerations. No Rash Neuro: Oriented X 3. No motor deficit. No sensory deficit. Moving all extremities. No slurred speech. CN 2 through 12 grossly intact Psych: calm, cooperative, normal affect Vital Signs: Vital Signs: Last Vital Signs Temp 98.3 F 07/21/25 22:18 Pulse 91 07/21/25 22:18 Resp 16 07/21/25 22:18 BP 118/60 07/21/25 22:18 Pulse Ox 97 07/21/25 22:18 O2 Del Method Room Air 07/21/25 22:18 BMI result Body Mass Index 25.1 Course Course Course Narrative: patient complaining of penile pain, secondary to foreskin swelling proximal to the glands patient states it has happened before but it resolved on its own. Medications Administered Discontinued Medications Generic Name Dose Route Start Last Admin Trade Name Oscar PRN Reason Stop Dose Admin Acetaminophen 975 mg 07/21/25 21:58 07/21/25 22:03 Acetaminophen 325 Mg Tablet PO 07/21/25 21:59 975 mg ONCE ONE Administration Medical Decision Making Medical Decision Making [facility] Narrative: Patient states that couple of days ago he was tested for multiple STDs including herpes. He is waiting for the results from the healthcare clinic. I discussed with the patient his physical exam, patient has paraphimosis. We will apply cold water mixed with sugar to the penile shaft with gauzes and then we will attempt retraction. If unsuccessful, we may need to do a penile block and retract the skin. Since this has happened in the past, this being the worst, it is likely that the patient will benefit from a circumcision, no to be done emergently today. Patient will be referred to Urology Urinalysis negative for UTI multiple applications of ice cold water with sure were applied to the penis. Patient was given p.o. acetaminophen. With minimal effort, the foreskin was successfully reduced completely. patient will likely receive the test results from the Health Clinic tomorrow regarding the possibility of having herpes. I discussed with the patient that if he tests positive for herpes, they will likely sent antivirals to his pharmacy. Differential Diagnosis Differential Diagnoses: The differential diagnosis associated with the presentation includes ( Phimosis, paraphimosis, herpes) Lab Data [facility] Lab Attestation statement: I reviewed the patient's lab results. Labs: Lab Results 07/21/25 Range/Units 22:23 Urine Color Yellow Urine Appearance Clear Urine pH 5.5 (5.0-9.0) Ur Specific [place] >= 1.030 H (1.005-1.025) Urine Protein Trace (Neg-Trace) mg/dL Urine Glucose (UA) Negative (Negative) mg/dL Urine Ketones Trace (Negative) mg/dL Urine Blood Negative (Negative) Urine Nitrite Negative (Negative) Ur Leukocyte Esterase Negative (Negative) Critical Care Time Critical Care Time Critical Care Time: Yes Total Critical Care Time: 35 Attestation: I have personally provided critical care time. Time includes review of lab data, radiology results, discussion with consultants, and monitoring for potential decompensation. Intervention performed as documented. Discharge Plan Discharge Clinical Impression: Paraphimosis Patient Disposition: Home, Self-Care Instructions: Acute Paraphimosis (ED) Additional Instructions: Please follow-up with your primary care physician tomorrow. if the swelling of the foreskin reoccurs, please return to the emergency room. Please also follow-up with urology, you may be a good candidate for a circumcision. If you have any worsening or new symptoms, please return to the emergency room or call 911 Prescriptions: No Action lidocaine HCl-hydrocortison ac 3-0.5 % kit 1 appl WI BID Qty: 1 0RF cyclobenzaprine 10 mg tablet 10 mg PO TID PRN (Reason: muscle spasm) Qty: 10 0RF ibuprofen 800 mg tablet 800 mg PO Q8H PRN (Reason: pain) Qty: 14 0RF Referrals: Deborah Dobson MD [Physician, Urology] Referral Note: Recurrent paraphimosis Print Language: Welsh
[2025-07-21 22:18] VITALS: BP 118/60; PULSE 91; RESP 16; TEMP 36.8; O2SAT 97
[2025-07-21 22:30] LABS: Appearance Urine Clear; Glucose Urine UA Negative (Negative); PH 5.5 (5.0-9.0); Specific Gravity - Urine >= 1.030 (1.005-1.025)
--- NOTE | 2025-07-21 23:51 | PC.NURSE ---
The RN was not the primary nurse, printed and reviewed discharge instructions with pt. pt verbalized understanding, no sign of distress upon discharge.
[2025-07-21 23:53] VITALS: BP 118/60; PULSE 91; RESP 16; TEMP 36.8; O2SAT 97
[2025-07-22 03:28] LABS: CT PCR Urine NOT DETECTED (Not Detect.); NG PCR Urine NOT DETECTED (Not Detect.)
== END 2025-07-21 23:53 | disposition home or self-care (01) ==
PROVIDERS: Emergency Provider Emergency Medicine; PCP Nurse Practitioner Primary Care
DX: N47.2 Paraphimosis (principal); Z20.2 Contact with and (suspected) exposure to infections with a predominantly sexual mode of transmission
CPT/HCPCS: 81003; 87491; 87591; 99283; 99284

== ENCOUNTER 2025-08-09 09:53 | Outpatient (REF) | payer OTHER, SELFPAY ==
--- OUTSIDE RECORDS SUMMARY | 2025-08-09 09:00 | XMS_ITS | Encounter Summary ---
Author Organization [employer] Address [address] [facility] [address] [place] [address] Care Team Providers Care Cross Tie Maker Name Role Phone Jak Janie DOMINGUEZ Primary Care Provider [phone] Reason for Visit * Reason Comments Hair/Scalp Problem Encounter Details Date Type Department Care Team ([facility] Contact Info) Description 08/09/2025 9:00 AM EST Office Visit [facility] [address] [place] [address] Dermatitis (Primary Dx) Social History Tobacco Use Types Packs/Day Years [...] Sign Reading Time Taken Comments Blood Pressure 112/71 08/09/2025 8:58 AM EST Pulse 75 08/09/2025 8:58 AM EST Temperature 36.8 C (98.2 F) 08/09/2025 8:58 AM EST Respiratory Rate 16 08/09/2025 8:58 AM EST Oxygen Saturation 98% 08/09/2025 8:58 AM EST Inhaled Oxygen Concentration - - Weight 70.3 kg (155 lb) 08/09/2025 8:58 AM EST Height 170.2 cm (5' 7 ) 08/09/2025 8:58 AM EST Body Mass Index 24.28 08/09/2025 8:58 AM EST documented in this encounter Plan of Treatment Scheduled Orders Name Type Priority Associated Diagnoses Orde r Schedule Comprehensive Metabolic Panel Lab Routine Dermatitis Expected: 08/09/2025 (Approximate), Expires: 08/09/2026 Culture, Fungus, Skin, Hair, Nail W/Direct Fluor/TREVON Microbiology Routine Dermatitis Expected: 08/09/2025 (Approximate), Expires: 08/09/2026 documented as of this encounter Procedures Procedure Name Priority Date/Time Associated Diagnosis Comments HEMOGLOBIN A1C Routine 08/09/2025 10:00 AM EST Dermatitis documented in this encounter Results * Hemoglobin A1c (08/09/2025 10:00 AM EST) Hemoglobin A1c 5.3 <6.0 % [facility] Comment:Hemoglobin A1C Refer ence Range Adults: 4.8 - 6.0 % Non diabetic: < 6.0 % Goal: < 7.0 %Additional Action Suggested: > 8.0 %Note: Hemoglobin A1c results are invalid for patients with abnormal amounts of HbF. Blood transfusions may impact the HbA1c concentration in the patient sample. Estimated Average Glucose 105 mg/dL [facility] Comment:eAG = Estimated ave rage glucose which is %A1C expressed asaverage glucose, using the formula of the T8S-TdcemioAzniymo Glucose study (ADAG), Diabetes Care, Vol.31,#8,Apr. 2007 Blood Venous blood specimen / Unknown 08/09/2025 10:00 AM EST 08/09/2025 11:10 AM EST us Higinio Byrne MD LAB BLOOD ORDERABLES Final Resul t [facility] [address] [place] [address] [phone] documented in this encounter Visit Diagnoses Diagnosis Dermatitis- Primary Contact dermatitis and other eczema, due to unspecified cause documented in this encounter Additional Health Concerns Assessment Noted Time PHQ-9 Depression Total Score: 10 06/03/ 025 11:58 AM EDT documented as of this encounter Care Teams Cross Tie Maker Relationship Specialty Start Date End Date Janie Benedict ANP [address] [place] [id number] PCP - General Family Medicine 08/08/20 documented as of this encounter
--- OUTSIDE RECORDS SUMMARY | 2025-08-09 11:53 | XMS_ITS | Encounter Summary ---
Author Organization [employer] Address [address] [facility] [address] [place] [address] Care Team Providers Care Road Oiling Truck Driver Name Role Phone Jak Janie DOMINGUEZ Primary Care Provider [phone] Encounter Details Date Type Department Care Team (Latest Contact Info) Description 08/09/2025 Travel Social History Tobacco Use Types Packs/Day [...] documented as of this encounter Care Teams Road Oiling Truck Driver Relationship Specialty Start Date End Date Janie Benedict ANP [address] [place] [phone] PCP - General Family Medicine 08/08/20 documented as of this encounter
--- OUTSIDE RECORDS SUMMARY | 2025-08-09 11:53 | XMS_ITS | Encounter Summary ---
Author Organization [employer] Address [address] [facility] [address] [place] [address] Care Team Providers Care Cake Icer And Packer Name Role Phone Janie Benedict Primary Care Provider Encounter Details Date Type Department Care Team ([facility] Contact Info) Description 06/07/2025 Results Follow-Up [facility] MEDICINE [address] [place] [address] Janie Benedict ANP [address] [place] [address] Hepatitis C Antibody with Reflex to HCV, [...] documented as of this encounter Care Teams Cake Icer And Packer Relationship Specialty Start Date End Date Janie Benedict ANP [address] [place] [address] PCP - General Family Medicine 08/08/20 documented as of this encounter
--- OUTSIDE RECORDS SUMMARY | 2025-08-09 11:53 | XMS_ITS | Clinical Summary ---
Author Organization [employer] Address [address] [facility] [address]t [place] [address] Care Team Providers Care Integrated Circuit Ic Layout Designer Name Role Phone Jak Janie DOMINGUEZ Primary Care Provider [phone] Allergies No known active allergies Medications * [...] 2 weeks 30 g 1 5 Active terbinafine (LamISIL) 250 MG tablet Take 1 tablet (250 mg) by mouth Once per day. 30 tablet 5 09/08/20 25 Active ketoconazole (NIZOral) 2 % shampoo Apply topically 2 (two) times a week. 120 mL 1 Active valACYclovir (Valtrex) 1 g tabletIndication s:Herpes simplex infection of penis Take 1 tablet (1,000 mg) by mouth 2 times daily for 10 days. 20 tablet 5 08/01/20 25 Active Problems Problem Noted Date Diagnosed Date [...] (11/14/2022 2:01 PM EST): Sent referral to [facility] for ADHD RO F/up with PCP [...] organization. Date Type Department Care Team Description 08/09/2025 9:00 AM EST Office Visit [facility] [address] [address] Dermatitis (Primary Dx) 08/09/2025 Travel 07/22/2025 Results Follow-Up [address] [address] Marielle Coates MD Herpes Simplex Virus Culture with Reflex Typing 07/22/2025 Orders Only [address] [address] Marielle Coates MD Herpes simplex infection of penis (Primary Dx) 07/22/[address] [address] Janie Benedict ANP Results 07/21/2025 Orders Only GENERIC EXTERNAL DATA DEPARTMENT Provider, Generic External Data 07/19/2025 2:00 PM EST Office Visit [facility] [address] [address] Marielle Coates MD Balanitis; Genital lesion, male 07/19/2025 Travel 06/07/2025 Results Follow-Up [address] [address] Janie Benedict ANP Hepatitis C Antibody with Reflex to HCV, RNA, Quantitative, Real-Time PCR 06/07/2025 Results Follow-Up [address] [address] Janie Benedict ANP HIV-1/2 Antigen and Antibodies, Fourth Generation, with Reflexes, Syphilis Screen 06/03/2025 11:00 AM EDT Office Visit [address] [address] Janie Benedict ANP Wart of hand (Primary Dx); Chronic otitis externa of right ear, unspecified type; Rash; Routine screening for STI (sexually transmitted infection); Depression, unspecified depression type; Attention deficit hyperactivity disorder (ADHD), unspecified ADHD type 06/03/2025 Orders Only [address] [address] Janie Benedict ANP 06/03/2025 Travel 06/01/[address] [address] Janie Benedict ANP chart prep from Last [...] Mass Index 24.28 08/09/2025 8:58 AM EST Plan of Treatment Health Maintenance Due Date Last Done Comments COVID-19 Vaccine ( season) 2025 Influenza Vaccine (#1) 2025 7, 09/05/2015, 08/23/2014, Additional history exists Depression Monitoring 12/01/2025 06/03/2025, 025 Alcohol/Substance Use Screening 06/03/2026 06/03/2025 Family Planning (PISQ) 06/03/2026 06/03/2025 SDOH Screening 06/03/2026 06/03/2025 Disability Screening 08/09/2026 08/09/2025 Tobacco Screening 08/09/2026 08/09/2025 DTaP/Tdap/Td Vaccines (9 - Td or Tdap) [...] A1C Routine 08/09/2025 10:00 AM EST Dermatitis URINALYSIS WITH REFLEX MICROSCOPIC Routine 07/21/2025 10:23 PM EST CHLAMYDIA/TRICHOMONA S/NEISSERIA GONORRHOEAE, PCR, URINE Routine 07/21/2025 10:21 PM EST HERPES CULTURE WITH REFLEX TYPING Routine 07/19/2025 12:00 AM EST Genital lesion, male HEPATITIS C AB W/REFL TO HCV RNA, QN, PCR Routine 06/03/2025 11:58 AM EDT SYPHILIS SCREEN Routine 06/03/2025 11:58 AM EDT Routine screening for STI (sexually transmitted infection) HIV 1/2 ANTIGEN/ANTIBODY, FOURTH GENERATION W/RFL Routine 06/03/2025 11:58 AM EDT Routine screening for STI (sexually transmitted infection) from Last 3 Months Results * Hemoglobin A1c (08/09/2025 10:00 AM EST) Hemoglobin A1c 5.3 <6.0 % [facility] Comment:Hemoglobin A1C Refer ence Range Adults: 4.8 - 6.0 % Non diabetic: < 6.0 % Goal: < 7.0 %Additional Action Suggested: > 8.0 %Note: Hemoglobin A1c results are invalid for patients with abnormal amounts of HbF. Blood transfusions may impact the HbA1c concentration in the patient sample. Estimated Average Glucose 105 mg/dL [facility] Comment:eAG = Estimated ave rage glucose which is %A1C expressed asaverage glucose, using the formula of the D1K-IurwxomHkufadg Glucose study (ADAG), Diabetes Care, Vol.31,#8,Apr. 2007 Blood Venous blood specimen / Unknown 08/09/2025 10:00 AM EST 08/09/2025 11:10 AM EST us Higinio Byrne MD LAB BLOOD ORDERABLES Final Resul t [facility] [address] [place] [phone] * (ABNORMAL) Urinalysis w/reflex microscopic (07/21/2025 10:23 PM EST) Color Urine Yellow [facility] Appearance Urine Clear [facility] PH 5.5 5.0 - 9.0 [facility] Glucose Urine UA Negative Negative mg/dL [facility] Urine Blood Negative Negative [facility] Specific [place] - Urine >=1.030(H) 1.005 - 1.025 [facility] Urine Protein Trace Neg-Trace mg/dL [facility] Urine Ketones Trace Negative mg/dL [facility] Nitrite Urine Negative Negative [facility] Leukocyte Esterase Urine Negative Negative [facility] 07/21/2025 10:2 3 PM EST 07/21/2025 10:26 PM EST Narrative [facility] - 07/21/2025 10:37 PM EST [id number], Clean Catch us Generic External Data Provider LAB URINE ORDERAB LES Final Result Performing Organization Address City/[facility]/ZIP Co de Phone Number [facility] [address] [place] [address] [phone] * Chlamydia/Trichomonas/Neisseria gonorrhoeae, PCR, Urine (07/21/2025 10:21 PM EST) CT PCR, Urine NOT DETECTED Not Detect. [facility] Comment:A not detected test result does not exclude the possibilityof infection because test results can be affected byimproper specimen collection, concurrent antibiotic therapy,or the number of organisms in the specimen which may bebelow the sensitivity of the test. As with many diagnostictests, results from the Xpert CT/NG assay should beinterpreted in conjunction with other laboratory andclinical data available to the clinician.The Xpert CT/NG assay should not be used for the evaluationof suspected sexual abuse or for other medico-legalindications. Additional testing is recommended in anycircumstance when false positive or false negative resultscould lead to adverse medical, social or psychologicalconsequences. NG PCR, Urine NOT DETECTED Not Detect. [facility] Comment:A not detected test result does not exclude the possibilityof infection because test results can be affected byimproper specimen collection, concurrent antibiotic therapy,or the number of organisms in the specimen which may bebelow the sensitivity of the test. As with many diagnostictests, results from the Xpert CT/NG assay should beinterpreted in conjunction with other laboratory andclinical data available to the clinician.The Xpert CT/NG assay should not be used for the evaluationof suspected sexual abuse or for other medico-legalindications. Additional testing is recommended in anycircumstance when false positive or false negative resultscould lead to adverse medical, social or psychologicalconsequences. 07/21/2025 10:2 1 PM EST 07/21/2025 10:26 PM EST Generic External Data Provider LAB URINE ORDERAB LES Final Result Performing Organization Address [facility]/ZIP Co de Phone Number [facility] [address] [place] [address] [phone] * (ABNORMAL) Herpes Simplex Virus Culture with Reflex Typing (07/19/2025 12:00 AM EST) HSV Culture/Type SEE NOTE(A) [facility] Comment:HERPES SIMPLEX VIRUS CULTURE W/RFL TO TYPING Micro Number: [id number] Test Status: Final Specimen Source: Not given Specimen Quality: Adequate HSV Culture: Isolated HSV TYPE 2: Isolated HSV TYPE 1: The incidence of HSV 1 infection in the presence of HSV 2 (dual infection) is extremely rare. Therefore, testing for HSV 1 was not performed.THIS TEST WAS PERFORMED AT:[facility] [id number] MERATI,MD Swab (Lesion) 07/19/2025 07/19/2025 us Marielle Buckley MD LAB MICROBIOLOGY - NERAL ORDERABLES Final Result Performing Organization Address City/[facility]/ZIP Co de Phone Number [facility] [address] [place] [phone] * Syphilis Screen (06/03/2025 11:58 AM EDT) Syphilis Screen Nonreactive Nonreactive [facility] Blood 06/03/2025 11:5 8 AM EDT 06/03/2025 1:06 PM EDT us Janie DOMINGUEZ LAB BLOOD ORDERABLES Final Resul t Performing Organization Address [facility] Co de Phone Number [facility] [address] [place] [phone] * Hepatitis C Antibody with Reflex to HCV, RNA, Quantitative, Real-Time PCR (06/03/2025 11:58 AM EDT) Hepatitis C Antibody Nonreactive Nonreactive [facility] Comment:Antibodies to HCV no t detected; does not exclude early acuteHCV infection. 06/03/2025 11:5 8 AM EDT 06/03/2025 1:06 PM EDT Janie Benedict [facility] LAB BLOOD ORDERABLES Final Resul t Performing Organization Address [facility] Co de Phone Number [facility] [address] [place] [address] [phone] * HIV-1/2 Antigen and Antibodies, Fourth Generation, with Reflexes (06/03/2025 11:58 AM EDT) HIV AB/AG Nonreactive Nonreactive [facility] Comment:HIV-1 p24 Ag and/or HIV-1/HIV-2 Ab not detected.A test result that is nonreactive does not exclude thepossibility of exposure to or infection with HIV-1 and/orHIV-2. Nonreactive results in this assay for individualswith prior exposure to HIV-1 and/or HIV-2 may be due toantigen and antibody levels that are below the limit ofdetection of this assay.The [employer] HIV Ag/Ab Combo assay result andsupplemental assay results should be interpreted inconjunction with the patient's clinical presentation,history and other laboratory results. If the results areinconsistent with clinical evidence, additional testing issuggested to confirm the result. Blood Venous blood specimen / Unknown 06/03/2025 11:58 AM EDT 06/03/2025 1:06 PM EDT Janie Benedict [facility] LAB BLOOD ORDERABLES Final Resul t Performing Organization Address [facility] Co de Phone Number [facility] [address] [place] [address] [phone] from Last 3 Months Insurance [place] [address] Care Teams Integrated Circuit Ic Layout Designer Relationship Specialty Start Date End Date Janie Benedict ANP [address] [place] [phone] PCP - General Family Medicine 08/08/20
--- OUTSIDE RECORDS SUMMARY | 2025-08-09 11:53 | XMS_ITS | Encounter Summary ---
Author Organization [employer] Address [address] [facility] 7t [place] [address] Care Team Providers Care Office Rep Name Role Phone Janie Benedict Primary Care Provider Reason for Visit * Reason Onset Date Comments Results 07/22/2025 Encounter Details Date Type Department Care Team ([facility] Contact Info) Description 07/22/2025 Telephone [facility] [address] [place] [address] Janie Benedict ANP [address] [place] [address] Results Social History Tobacco Use Types Packs/Day Years [...] encounter Miscellaneous Notes * Telephone Encounter - Carolynn Tapia - 07/22/2025 11:16 AM EST TC from pt requesting call back regarding Results. Type of results: lab order Date when done: 07/19 Facility: [facility] Contact pt at [phone] documented in this encounter Plan of Treatment Not on file documented as of this encounter Visit Diagnoses Not on filedocumented in this encounter Additional Health Concerns Assessment Noted Time PHQ-9 Depression Total Score: 10 025 11:58 AM EDT documented as of this encounter Care Teams Office Rep Relationship Specialty Start Date End Date Janie Benedict ANP [address] [place] [address] PCP - General Family Medicine 08/08/20 documented as of this encounter
--- OUTSIDE RECORDS SUMMARY | 2025-08-09 11:53 | XMS_ITS | Encounter Summary ---
Author Organization [employer] [facility] Address [address] [facility] 7t [place] [address] Care Team Providers Care Spinner Box Name Role Phone Janie Benedict Primary Care Provider [phone] Reason for Visit * Reason Comments Med Refill Encounter Details Date Type Department Care Team ([facility] st Contact Info) Description 10/17/2022 Refill [facility] [address] [place] [address] Anastacio Mancera MD [address] [place] [address] Social History Tobacco Use Types Packs/Day Years [...] on filedocumented in this encounter Care Teams Spinner Box Relationship Specialty Start Date End Date Janie Benedict ANP [address] [place] [address] PCP - General Family Medicine 08/08/20 documented as of this encounter
--- OUTSIDE RECORDS SUMMARY | 2025-08-09 11:53 | XMS_ITS | Encounter Summary ---
Author Organization [employer] Address [address] [facility] [address] [place] [address] Care Team Providers Care Hat Marker Name Role Phone Jak Janie DOMINGUEZ Primary Care Provider [phone] Encounter Details Date Type Department Care Team ([facility] st Contact Info) Description 10/01/2022 Orders Only [facility] [address] [place] [address] Madelaine Garland LPN Social History Tobacco Use [...] Routine 08/26/2023 2:33 AM EST HIV ANTIBODY/ANTIGEN ([facility]) Routine 05/24/2023 12:26 PM EDT documented in this encounter Results * (ABNORMAL) Urinalysis, Complete, with Reflex to Culture (08/26/2023 2:33 AM EST) Color Urine Yellow [facility] Appearance Urine Clear [facility] PH 6.0 5.0 - 9.0 [facility] Glucose Urine UA Negative Negative mg/dL [facility] Urine Blood Negative Negative [facility] Specific [place] - Urine >=1.030(H) 1.005 - 1.025 [facility] Urine Protein Negative Neg-Trace mg/dL [facility] Urine Ketones Trace Negative mg/dL [facility] Nitrite Urine Negative Negative [facility] Leukocyte Esterase Urine Negative Negative [facility] RBC Urine 0-2 0 - 2 /HPF [facility] Urine WBC 0-5 0 - 5 /HPF [facility] Urine Squamous Epithelial Cell 0-2 0 - 2 /HPF [facility] Urine Bacteria None Seen None Seen [facility] Hyaline Casts, Urine 0-2 0 - 2 /LPF [facility] 08/26/2023 2:33 AM EST 08/26/2023 2:38 AM EST Narrative [facility] - 08/26/2023 3:11 AM EST Urine, Clean Catch us Generic External Data Provider LAB URINE ORDERAB LES Final Result [facility] [address] [place] [phone] [phone] * HIV Ab/Ag ([facility]) (05/24/2023 12:26 PM EDT) HIV AB/AG Nonreactive Nonreactive [facility] Comment:HIV-1 p24 Ag and/or HIV-1/HIV-2 Ab not detected.A test result that is nonreactive does not exclude thepossibility of exposure to or infection with HIV-1 and/orHIV-2. Nonreactive results in this assay for individualswith prior exposure to HIV-1 and/or HIV-2 may be due toantigen and antibody levels that are below the limit ofdetection of this assay.The [employer] HIV Ag/Ab Combo assay result andsupplemental assay results should be interpreted inconjunction with the patient's clinical presentation,history and other laboratory results. If the results areinconsistent with clinical evidence, additional testing issuggested to confirm the result. 05/24/2023 12:2 6 PM EDT 05/24/2023 2:52 PM EDT us Owen Glynn MD LAB BLOOD ORDERABLES Final Resul t [facility] [address] [place] [address] [phone] documented in this encounter Visit Diagnoses Not on filedocumented in this encounter Care Teams Hat Marker Relationship Specialty Start Date End Date Janie Benedict ANP [address] [place] [address] PCP - General Family Medicine 08/08/20 documented as of this encounter
--- OUTSIDE RECORDS SUMMARY | 2025-08-09 11:53 | XMS_ITS | Encounter Summary ---
Author Organization [employer] Address [address] [facility] 7t [place] [address] Care Team Providers Care Shuttle Final Inspector Name Role Phone Janie Benedict Primary Care Provider [phone] Reason for Visit * Reason Comments Med Refill Encounter Details Date Type Department Care Team ([facility] st Contact Info) Description 10/17/2022 Refill [facility] [address] [place], [place] [phone] Higinio Byrne MD [address] [place] [address] Social History Tobacco Use Types Packs/Day Years [...] on filedocumented in this encounter Care Teams Shuttle Final Inspector Relationship Specialty Start Date End Date Janie Benedict ANP [address] [place], [place] [phone] PCP - General Family Medicine 08/08/20 documented as of this encounter
--- OUTSIDE RECORDS SUMMARY | 2025-08-09 11:53 | XMS_ITS | Encounter Summary ---
Author Organization [employer] Address [address] [facility] [address] [place] [address] Care Team Providers Care Blood Bank Credit Clerk Name Role Phone Janie Benedict Primary Care Provider [phone] Reason for Visit * Reason Onset Date Comments Appointment Request 06/19/2024 Encounter Details Date Type Department Care Team ([facility] Contact Info) Description 06/19/2024 Telephone [facility] [address] [place], [place] [phone] Janie Benedict ANP [address] [place] [address] Appointment Request Social History Tobacco Use Types [...] documented as of this encounter Care Teams Blood Bank Credit Clerk Relationship Specialty Start Date End Date Janie Benedict ANP [address] [place] [phone] PCP - General Family Medicine 08/08/20 documented as of this encounter
--- OUTSIDE RECORDS SUMMARY | 2025-08-09 11:53 | XMS_ITS | Encounter Summary ---
Author Organization [employer] Address [address] [facility] [address] [place] [address] Care Team Providers Care System Designer Name Role Phone Janie Benedict Primary Care Provider [phone] Reason for Visit * Reason Onset Date Comments Appointment Request 09/15/2024 Encounter Details Date Type Department Care Team ([facility] Contact Info) Description 09/15/2024 Telephone [facility] [address] [place], [place] [phone] Janie Benedict ANP [address] [place] [address] Appointment Request Social History Tobacco Use Types [...] requesting schedule appt for DX: Ear Infection. [phone] documented in this encounter Plan of Treatment Not on file documented as of this encounter Visit Diagnoses Not on filedocumented in this encounter Additional Health Concerns Assessment Noted Time PHQ-9 Depression Total Score: 0 03/13/20 24 3:16 PM EDT documented as of this encounter Care Teams System Designer Relationship Specialty Start Date End Date Janie Benedict ANP [address] [place] [phone] PCP - General Family Medicine 08/08/20 documented as of this encounter
--- OUTSIDE RECORDS SUMMARY | 2025-08-09 11:53 | XMS_ITS | Encounter Summary ---
Author Organization [employer] Address [address] [facility] [address] [address] 7[address] [place] [address] Care Team Providers Care Shorts Sifter Name Role Phone Janie Benedict Primary Care Provider [phone] Encounter Details Date Type Department Care Team ([facility] Contact Info) Description 06/07/2025 Results Follow-Up [facility] [address] [place] [address] Janie Benedict ANP [address] [place] [address] HIV-1/2 Antigen and Antibodies, Fourth Generation, with [...] documented as of this encounter Care Teams Shorts Sifter Relationship Specialty Start Date End Date Janie Benedict ANP [address] [place] [address] PCP - General Family Medicine 08/08/20 documented as of this encounter
--- OUTSIDE RECORDS SUMMARY | 2025-08-09 11:53 | XMS_ITS | Encounter Summary ---
Author Organization [email or web address] Address [address] [facility] [address] [place] [address] Care Team Providers Care Strength And Conditioning Coach Name Role Phone Janie Benedict Primary Care Provider [phone] Reason for Visit * Reason Onset Date Comments Nurse Triage 02/14/2024 Encounter Details Date Type Department Care Team ([facility] st Contact Info) Description 02/14/2024 Telephone [facility] [address] [place], [place] [phone] Janie Benedict ANP [address] [place] [address] Nurse Triage Social History Tobacco Use Types [...] documented as of this encounter Care Teams Strength And Conditioning Coach Relationship Specialty Start Date End Date Janie Benedict ANP [address] [place] [phone] PCP - General Family Medicine 08/08/20 documented as of this encounter
[2025-08-09 12:02] LABS: Alanine Aminotransferase 21 U/L (0-40); Albumin Level 4.6 g/dL (3.5-5.0); Alkaline Phosphatase 117 U/L (39-117); Anion Gap 8 (12-20); Aspartate Amino Transferase 27 U/L (5-37); Blood Urea Nitrogen 15 mg/dL (9-16); Calcium 9.3 mg/dL (8.4-10.2); Carbon Dioxide 30 mmol/L (22-29); Chloride 109 mmol/L (96-108); Estimated Glomerular Filt Rate > 60; Potassium 4.2 mmol/L (3.3-5.1); Sodium 143 mmol/L (135-145); Total Protein 7.2 g/dL (6.5-8.0)
[2025-08-09 12:43] LABS: HIV Num 1 0.05 S/CO (0.00-0.99)
== END 2025-08-09 09:54 | disposition home or self-care (01) ==
LOC: HO.HHCL 09:53
PROVIDERS: PCP Nurse Practitioner Primary Care; Visit Provider Emergency Medicine
DX: Z11.3 Encounter for screening for infections with a predominantly sexual mode of transmission (principal); Z11.4 Encounter for screening for human immunodeficiency virus [HIV]; L30.9 Dermatitis, unspecified; Z13.1 Encounter for screening for diabetes mellitus
CPT/HCPCS: 36415; 80053; 83036; 87101; 87220; 87389